=== PATIENT | female | born 1970 | race Caucasian/White ===

== ENCOUNTER 2017-05-21 13:50 | Emergency (ER) | payer MEDICAID, SELFPAY | END 2017-05-21 16:44 | disposition home or self-care (01) | PROVIDERS: Emergency Provider Emergency Medicine; Visit Provider Emergency Medicine | DX: R09.1 Pleurisy (principal); Z72.0 Tobacco use; D64.9 Anemia, unspecified; M79.7 Fibromyalgia; Z79.899 Other long term (current) drug therapy | CPT/HCPCS: 36415; 71020; 71275; 80053; 84484; 85025; 85378; 93005; 99283 ==

== ENCOUNTER → 2017-08-27 10:24 | Outpatient (CLI) | payer MEDICAID, SELFPAY ==
--- NOTE | 2017-08-27 11:21 | XR_ITS ---
XR knee LT 4V HISTORY: ITS.REASON: Left knee pain ORDERING PHYSICIAN: JUNIOR Tatum PATIENT AGE: 47 years COMPARISON: None FINDINGS: Mild tricompartmental osteoarthritic change. An extra bony density is present along the medial tibial spine region at 8 mm consistent with a loose body . No fracture or dislocation. No lytic or blastic change. There is increased density in the suprapatellar region suggesting multiple suprapatellar effusion. IMPRESSION: Mild tricompartmental osteoarthritis with possible loose body posteriorly and small knee joint effusion
[2017-08-27 11:28] VITALS: PULSE 78; PULSE 80
== END ==
PROVIDERS: Visit Provider Physician Assistant
DX: J30.9 Allergic rhinitis, unspecified (principal); M25.562 Pain in left knee
CPT/HCPCS: 73564; 87070; 87077; 87186; 87205; 94640

== ENCOUNTER → 2017-10-06 14:39 | Outpatient (POV) | payer MEDICAID, SELFPAY | PROVIDERS: Family Provider Physician Assistant; PCP Physician Assistant; Visit Provider Internal Medicine | DX: Z00.00 Encounter for general adult medical examination without abnormal findings (principal) ==

== ENCOUNTER → 2017-10-07 12:39 | Outpatient (CLI) | payer MEDICAID, SELFPAY ==
--- NOTE | 2017-10-07 12:40 | MR_ITS ---
MR knee LT wo con HISTORY: Left knee pain with finding and swelling with limited range of motion. Possible loose body, abnormal radiograph ITS.REASON: possible loose body or meniscus tear ORDERING PHYSICIAN: Narinder Olivas MD PATIENT AGE: 47 years COMPARISON: 08/27/2017 TECHNIQUE: Standard multiplanar multiecho sequences are performed without contrast. FINDINGS: The cruciate ligaments are intact. The collateral ligaments, patellar tendon, and quadriceps tendon are intact. No meniscal tear apparent. There is linear increased T2 signal involving the posterior horn of the lateral meniscus extending to the free edge of the meniscus posteriorly but not involving the articular surface and not extending to the edge on more than one image and does not meet strict MRI criteria for meniscal tear. There is a 10 x 6 mm area of isoechogenicity along the posterior aspect of the knee joint slightly medial consistent with an intra-articular loose body as was seen on the recent radiograph this is just posterior medial to the inferior aspect of the posterior cruciate ligament and is within the knee joint capsule. There are mild osteoarthritic changes of the lateral compartment with a subcortical defect involving the medial femoral condyle. This defect measures approximately 5 mm. A small amount of edema is present in the medial femoral condyle. There is slight increased T2 signal involving the posterior surface of the patella superiorly. The patellar cartilage is preserved. IMPRESSION: 1. 10 x 6 mm loose body along the posterior aspect of the knee joint slightly medial just posterior medial to the posterior cruciate ligament with an associated small knee joint effusion. 2. Small osteochondral defect of the lateral femoral condyle with mild osteoarthritis of the lateral compartment 3. No evidence of internal derangement
== END ==
PROVIDERS: Family Provider Physician Assistant; PCP Physician Assistant; Visit Provider Orthopaedic Surgery
DX: M23.42 Loose body in knee, left knee (principal); M17.12 Unilateral primary osteoarthritis, left knee
CPT/HCPCS: 73721

== ENCOUNTER → 2017-10-15 11:25 | Outpatient (CLI) | payer MEDICAID, SELFPAY ==
[2017-10-15 13:16] LABS: Alanine Aminotransferase 13 U/L (12-78); Alkaline Phosphatase 66 U/L (46-116); Aspartate Amino Transferase 11 U/L (15-37); Bilirubin,Direct 0.1 mg/dL (0.0-0.2); Bilirubin,Indirect 0.3 mg/dL (0.0-0.9); Bilirubin,Total 0.4 mg/dL (0.2-1.0); Chol/HDL Ratio 2.7 (1-3.5); Cholesterol 115 mg/dL (140-200); HDL Cholesterol 43 mg/dL (29-89); LDL Cholesterol 53 mg/dL (0-130); Total Protein,Serum 6.7 gm/dL (6.4-8.2); Triglycerides 93 mg/dL (30-200); VLDL Cholesterol 19 mg/dL (0-40)
== END ==
PROVIDERS: Family Provider Physician Assistant; PCP Physician Assistant; Visit Provider Internal Medicine Cardiovascular Disease
DX: I25.10 Atherosclerotic heart disease of native coronary artery without angina pectoris (principal); I10 Essential (primary) hypertension; E78.5 Hyperlipidemia, unspecified; Z82.49 Family history of ischemic heart disease and other diseases of the circulatory system; Z95.5 Presence of coronary angioplasty implant and graft
CPT/HCPCS: 36415; 80061; 80076

== ENCOUNTER 2017-10-21 10:04 | Outpatient (RCR) | payer MEDICAID, SELFPAY | END 2017-10-21 10:05 | disposition home or self-care (01) | LOC: PT 10:04 | PROVIDERS: Family Provider Physician Assistant; PCP Physician Assistant; Visit Provider Orthopaedic Surgery | DX: M17.12 Unilateral primary osteoarthritis, left knee (principal) | CPT/HCPCS: 97163 ==

== ENCOUNTER → 2017-12-04 11:12 | Outpatient (CLI) | payer MEDICAID, SELFPAY ==
[2017-12-04 12:13] VITALS: PULSE 69; PULSE 70
[2017-12-04 12:45] VITALS: BP 127/81; BP 142/80; PULSE 76; PULSE 98; RESP 14; RESP 20; O2SAT 96; O2SAT 99
== END ==
PROVIDERS: Family Provider Physician Assistant; PCP Physician Assistant; Visit Provider Internal Medicine
DX: J42 Unspecified chronic bronchitis (principal)
CPT/HCPCS: 94060; 94618; 94640; 94726; 94729

== ENCOUNTER → 2017-12-08 10:39 | Outpatient (POV) | payer MEDICAID, SELFPAY | PROVIDERS: Family Provider Physician Assistant; PCP Physician Assistant; Visit Provider Internal Medicine | DX: Z00.00 Encounter for general adult medical examination without abnormal findings (principal) ==

== ENCOUNTER → 2017-12-11 07:46 | Outpatient (CLI) | payer MEDICAID, SELFPAY ==
--- NOTE | 2017-12-11 07:47 | CA_ITS ---
PROCEDURE: 2-D M-mode and color Doppler study INDICATIONS FOR THE TEST: Chest pain + COPD+ Heart Murmur Tobacco Smoking Palpitations Fatigue+ Syncope Edema+ Hypertension+Diabetes Mellitus Rheumatic Fever SOB+COX+Obesity Hyperlipidemia+ Family History HD Additional History CAD, DIZZINESS, STENT PATIENT INFORMATION HEIGHT: 64 WEIGHT:172 GENDER: Female B/P:127/80 2-D/M-MODE INTERPRETATION: 2-D MEASUREMENTS OBSERVED VALUES IN CMS Right Ventricular Dimension (RVDd) 2.2 Interventricular Septum (Thickness)(IVsd) 0.9 Left Ventricular Internal Dimensions(LVIDd) 4.9 Left Ventricular Posterior Wall (Thickness)(LVPWd) 1.0 Aortic Root 3.4 Aortic Cusp Separation 2.5 Left Atrial Dimensions (LAD) 3.3 2D 1. Left atrium is normal size, left ventricle is normal size, there is no concentric left ventricular hypertrophy, visually estimated ejection fraction 55% with no obvious regional wall motion abnormality. 2. The right atrium and right ventricle are normal size and contractility. 3. The aortic, mitral and tricuspid valve are grossly normal. 4. The pulmonic valve is poorly visualized. 5. No significant pericardial effusion noted. DOPPLER INTERROGATION: Doppler interrogation of the aortic, mitral and tricuspid valvular presence of mild mitral and tricuspid regurgitation, tricuspid and jet velocity is insufficient for calculation of the right ventricular systolic pressure, diastolic parameters are within normal range. CONCLUSION: 1. Normal left ventricular size, preserved left ventricular systolic function, visually estimated ejection fraction 55% with no obvious regional wall motion abnormality, diastolic parameters are within normal range. 2. Mild mitral and tricuspid regurgitation 3. No significant pericardial effusion noted.
== END ==
PROVIDERS: Family Provider Physician Assistant; PCP Physician Assistant; Visit Provider Internal Medicine
DX: I25.10 Atherosclerotic heart disease of native coronary artery without angina pectoris (principal); R50.9 Fever, unspecified
CPT/HCPCS: 93306

== ENCOUNTER → 2020-03-02 09:01 | Outpatient (CLI) | payer MEDICAID, SELFPAY ==
--- NOTE | 2020-03-02 09:10 | XR_ITS ---
PROCEDURE: XR CHEST 2V CLINICAL HISTORY: h/o renal cell cancer COMPARISON: CR CXR CHEST(2 VIEWS-NOT PORTABLE) from 02/22/2017 CR CXR CHEST(2 VIEWS-NOT PORTABLE) from 05/07/2017 CR CXR CHEST(2 VIEWS-NOT PORTABLE) from 05/21/2017 CT CTAC CTA-CHEST from 05/21/2017 FINDINGS: Borderline emphysematous changes noted. The lung zuleta are clear of infiltrate. There are no suspicious pulmonary nodules. Cardiac size is normal and vascularity is normal and there is no pleural fluid. IMPRESSION: Borderline COPD otherwise negative chest Dictated by: Dr. Roland Koo MD 03/02/2020 09:43 Dr. Roland Koo MD in [place] 03/02/2020 09:43
--- NOTE | 2020-03-02 09:10 | US_ITS ---
PROCEDURE: US KIDNEY Referring Doctor: ItaliaBuster Patient Age:49Y CLINICAL INDICATION: . Left kidney removed in 2011 COMPARISON: US RUQ US RUQ-(ABD LTD)1ORGAN/QUAD/FU from 03/04/2016 FINDINGS: Follow-up right kidney the right kidney appears normal. It measures 12.9 cm length times 5.8 cm. Cortex is well maintained.. No mass lesions or echogenic foci. Good flow throughout the right kidney on color Doppler survey. No fluid is encountered at Combs's pouch or on on these views of the abdomen The left kidney is been removed. Left nephrectomy in 2011. The no findings in the left renal fossa by this ultrasound survey The spleen appears normal measuring 9.2 cm length. IMPRESSION: The remaining right kidney mildly hypertrophy but normal, with cortex well maintained. No right renal mass evident on ultrasound survey Left nephrectomy. Spleen unremarkable. Dictated by: Geovany Dumont MD 03/02/2020 13:27 Geovany Dumont MD in [place] 03/02/2020 13:27
[2020-03-02 09:27] LABS: Basophils # 0.1 K/mm3 (0-0.2); Basophils % 1.1 % (0.1-2.0); Eosinophils # 0.2 K/mm3 (0.0-0.4); Eosinophils % 2.4 % (0.1-12.0); Hematocrit 40.8 % (37.0-47.0); Hemoglobin 13.9 g/dL (12.2-16.2); Lymphocytes # 2.6 K/mm3 (0.7-4.5); Lymphocytes % 35.7 % (10-50); Mean Corpuscular HGB Conc 34.1 g/dL (31.8-35.4); Mean Corpuscular Hemoglobin 31.1 pg (27.0-31.2); Monocytes # 0.5 K/mm3 (0.1-1.0); Monocytes % 6.6 % (1.7-9.3); Neutrophils % 54.3 % (37.0-80.0); Platelet Count 378 K/mm3 (142-424); Red Blood Count 4.48 M/mm3 (4.20-5.40); Red Cell Distribution Width 13.5 % (11.5-17.5); White Blood Count 7.3 K/mm3 (4.8-10.8)
[2020-03-02 12:45] LABS: Chloride 104 mmol/L (98-107); Potassium 4.7 mmoL/L (3.5-5.1); Sodium 138 mmol/L (136-145)
[2020-03-02 12:48] LABS: Alanine Aminotransferase 20 U/L (12-78); Albumin Level 4.1 g/dl (3.5-5.0); Albumin/Globulin Ratio 1.7 (1.1-1.8); Alkaline Phosphatase 68 U/L (38-126); Anion Gap 13.7 mEq/L (5-15); Aspartate Amino Transferase 21 U/L (14-36); Bilirubin,Total 0.6 mg/dl (0.2-1.3); Blood Urea Nitrogen 10 mg/dl (7-17); Calcium 9.6 mg/dl (8.4-10.2); Carbon Dioxide 25 mmol/L (22.0-30.0); Estimated Glomerular Filt Rate 67 ml/min (>60); GFR (African American) 81 ML/MIN (>60); Globulin 2.4 g/dL (1.3-3.2); Glucose 103 mg/dl (74-100); Total Protein,Serum 6.5 g/dl (6.3-8.2)
[2020-03-02 12:55] LABS: NT Pro Brain Natriuretic Pep. 77.3 pg/mL (0-125)
== END ==
PROVIDERS: Internal Medicine Cardiovascular Disease; Visit Provider Urology
DX: Z85.528 Personal history of other malignant neoplasm of kidney (principal)
CPT/HCPCS: 36415; 71046; 76770; 80053; 83880; 85025

== ENCOUNTER → 2020-03-02 10:42 | Outpatient (CLI) | payer MEDICAID, SELFPAY | PROVIDERS: Visit Provider Internal Medicine Cardiovascular Disease | DX: R07.9 Chest pain, unspecified (principal); R42 Dizziness and giddiness; R06.00 Dyspnea, unspecified; E78.5 Hyperlipidemia, unspecified; I10 Essential (primary) hypertension; I25.118 Atherosclerotic heart disease of native coronary artery with other forms of angina pectoris; J44.9 Chronic obstructive pulmonary disease, unspecified; K21.9 Gastro-esophageal reflux disease without esophagitis; Z95.5 Presence of coronary angioplasty implant and graft | CPT/HCPCS: 83880 ==

== ENCOUNTER → 2020-03-02 11:04 | Outpatient (CLI) | payer MEDICAID, SELFPAY | PROVIDERS: PCP Student in an Organized Health Care Education/Training Program; Visit Provider Urology | DX: R42 Dizziness and giddiness (principal); R06.00 Dyspnea, unspecified | CPT/HCPCS: 93225 ==

== ENCOUNTER → 2020-03-09 07:21 | Outpatient (CLI) | payer MEDICAID, SELFPAY ==
--- NOTE | 2020-03-09 | CA_ITS ---
APPROVED REPORT Exam: Pharmacologic Technologist: Beth Resendez, Ht: 5 ft 4 in Wt: 203 lbs BSA: 1.97 m2 HR: 65 bpm BP: 134/75 mmHg Rhythm: SINUS RHYTHM WITH RBB Medical History Medical History: Hyperlipidemia Medications: Omeprazole,,,,, Asa,,,,, Trazadone,,,,, Gabapentin,,,,, Atorvastatin,,,,, Albuterol,,,,, MoTRIN,,,,, Plavix,,,,, LoraTADINE,,,,, Xopenex,,,,, Vit D2,,,,, FamotidNE,,,,, Cardiac Risk Factors: Hyperlipidemia, FHX of CAD Stress Test Details Test: LEXISCAN HR Resting HR: 97 bpm Max Heart Rate (APMHR): 171 bpm Max HR Achieved: 138 bpm Target HR (85% APMHR): 145 bpm % of APMHR: 80 Recovery HR: 109 bpm BP Resting BP: 134.0/75.0 mmHg Max BP: 190.0/78.0 mmHg Recovery BP: 186.0/90.0 mmHg ECG Resting ECG: NSR WITH RBBB Clinical Exercise duration: 04:00 min Highest Stage Achieved: Exercise capacity: 1.0 METs Stress ECG Conclusion LEXISCAN MYOVIEW PORTION COMPLETED. PATIENT C/O SOA DURING PEAK INFUSION. NO CHEST PAIN. SHORTNESS OF AIR AND NAUSEA AND VOMITING AT PEAK INFUSION. RESOLVED IN RECOVERY. OCCASIONAL PAC. LESS THAN 1.5MM ST DEPRESSION. IMAGES TO FOLLOW Test Summary REST . . . . . . . Sitting REST 07:56 . . 97 . 134/ 75 . . Stage 1 . . . . . . . Myoview Injected Stage 1 01:00 . . 106 . . . . Stage 2 01:00 . . 123 . 112/ 80 . . Stage 3 01:00 . . 122 . . . . Stage 4 01:00 . . 126 . . . Stop exercise at 04:00 RECOVERY 01:00 . . 119 . 190/ 78 . . RECOVERY 02:00 . . 79 . 190/ 78 . . RECOVERY 03:00 . . 104 . 186/ 90 . . RECOVERY 04:00 . . 89 . 186/ 90 . . RECOVERY 05:00 . . 91 . 186/ 90 . . RECOVERY 06:00 . . 68 . 186/ 90 . . RECOVERY 07:00 . . 80 . 158/ 92 . . RECOVERY 07:39 . . 73 . 132/ 81 . . Electronically signed by : Sterling Okeefe, 03/09/2020 11:58:17
--- NOTE | 2020-03-09 07:21 | NM_ITS ---
APPROVED REPORT Exam: Nuclear Stress Test Indication: chest pain..short of breath.. fatigue Patient Location: Outpatient Stress Tech: Tonya Mal MD Tech:BALBIR Quiñonez RT(R)(N) Ht: 5 ft 4 in Wt: 203 lbs Bra Size: 38 c HR: 65 bpm BP: 134/75 mmHg BSA: 1.97 m2 BMI: 34.8 History: chest pain..short of breath.. fatigue Procedure: Patient received a 0.4 mg of intravenous Lexiscan, resting heart rate 65 bpm, resting blood pressure 134/75 mmHg, with Lexiscan maximum heart rate achived was 109 bpm which is Less than 85 % of the maximum predicted heart rate and blood pressure was 186/90 mmHg. With Lexiscan, patient denied any complaint of chest pain. Electrocardiogram Resting electrocardiogram showed sinus rhythm, with Lexiscan there is less than 1.[address] segment depression noted from the baseline EKG. The EKG portion of the Lexiscan is nondiagnostic. Cardiac Stress and Resting SPECT Images: Cardiac Stress and Resting SPECT images were obtained using technetium 99m Myoview 32.9 mCi stress and 10.71 mCi at rest. Gated SPECT for analysis of segmental wall motion and calculation of the ejection fraction also done. Cardiac stress and resting SPECT images show uniform myocardial activity without segmental perfusion abnormality, computer derived ejection fraction is 65% with no regional wall motion abnormality, right ventricle is normal size and contractility. Conclusion: 1. The EKG portion of the Lexiscan Myoview is nondiagnostic for 2. No scintigraphic evidence of reversible ischemia seen, computer derived ejection fraction is 65% with no regional wall motion abnormality, right ventricle is normal size and contractility 3. Normal Lexiscan Myoview study. Electronically signed by : Sterling Okeefe, 03/16/2020 13:19:51
--- NOTE | 2020-03-09 07:41 | CA_ITS ---
APPROVED REPORT Registered Nurse Cardiac Telemetry: DONNELL Laterality: Bilateral Study Quality: Good Indications: dizziness Doppler Spectral Velocity Analysis dICA (R) 80.90/25.30 cm/s dICA (L) 119.70/37.70 cm/s Abdulaziz (R) 135.00/33.70 cm/s Abdulaziz (L) 106.40/36.80 cm/s pICA (R) 138.00/37.20 cm/s pICA (L) 106.40/36.80 cm/s dCCA (R) 117.50/32.70 cm/s dCCA (L) 130.70/44.10 cm/s pCCA (R) 136.70/26.80 cm/s pCCA (L) 88.50/19.40 cm/s Vert (R) 76.10/20.60 cm/s Vert (L) 58.90/13.50 cm/s ICA/CCA 1.20 ICA/CCA 0.90 Findings Duplex evaluation demonstrates stenosis of the right proximal internal carotid artery <20% with PSV <140 cm/sec, EDV <100 cm/sec, and IC/CC Ratio <4.0.The left carotid arterial system appeared to be normal without stenosis of the bulb or internal carotid artery. Antegrade flow seen bilateral vertebral arteries. Conclusion Duplex evaluation demonstrates stenosis of the right proximal internal carotid artery <20% with PSV <140 cm/sec, EDV <100 cm/sec, and IC/CC Ratio <4.0.The left carotid arterial system appeared to be normal without stenosis of the bulb or internal carotid artery. Antegrade flow seen bilateral vertebral arteries. Electronically signed by : Iban Rivas MD 03/09/2020 17:36:55
--- NOTE | 2020-03-09 09:42 | HMH.ITSHM ---
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 [] asa atorvastain clopidogrel famotidine gabapentin loratadine montelukast omeprazole
== END ==
PROVIDERS: PCP Student in an Organized Health Care Education/Training Program; Visit Provider Internal Medicine Cardiovascular Disease
DX: R07.9 Chest pain, unspecified (principal); R06.00 Dyspnea, unspecified; R42 Dizziness and giddiness; E78.5 Hyperlipidemia, unspecified; I10 Essential (primary) hypertension; I25.118 Atherosclerotic heart disease of native coronary artery with other forms of angina pectoris; J44.9 Chronic obstructive pulmonary disease, unspecified; K21.9 Gastro-esophageal reflux disease without esophagitis; Z87.891 Personal history of nicotine dependence; Z95.5 Presence of coronary angioplasty implant and graft
CPT/HCPCS: 78452; 93017; 93880; A9502; J2785

== ENCOUNTER → 2020-03-19 12:42 | Outpatient (CLI) | payer MEDICAID, SELFPAY ==
--- NOTE | 2020-03-19 12:43 | US_ITS ---
PROCEDURE: US BREAST LT COMPLETE CLINICAL INDICATION: Abnormal left mammogram COMPARISON: US BREAST LT from 06/04/2018 FINDINGS: There is a somewhat oval area of increased echogenicity with somewhat heterogenic and echogenic appearance upper inner quadrant at the 10 o'clock position measuring 2.9 x 3.2 cm. The surrounding breast parenchyma is unremarkable. There are couple normal appearing nodes seen in the axilla. IMPRESSION: Somewhat focal heterogenic and echogenic lesion as described corresponding to the area of architectural distortion on the mammogram and I believe biopsy is indicated as described on the mammogram report same date Dictated by: Dr. Roland Koo MD 03/19/2020 15:41 Dr. Roland Koo MD in [place] 03/19/2020 15:41
--- NOTE | 2020-03-19 12:43 | MM_ITS ---
PROCEDURE: MM DIG MAMM DX UNILAT LT CAD Digital Breast Tomosynthesis Included CLINICAL INDICATION: lump patient had previous left mammogram [place], [place] 08/04/2019 and apparently was scheduled for biopsy but that was canceled due to Covid and now returns for repeat left mammogram COMPARISON: MG DIAGNOSTIC BILATERAL from 08/04/2019 US US BREAST LT COMPLETE from 03/19/2020 TECHNIQUE: Standard CC and MLO images and 3D Tomosynthesis was obtained. R2 CAD reviewed. FINDINGS: Moderate scattered fibroglandular densities are seen in the breast. There is somewhat irregular opacities and or architectural distortion upper inner quadrant. It is similar in appearance to the previous study 08/04/2019 ultrasound performed same date showed a somewhat irregular area of increased echogenicity upper inner quadrant at approximately the 10 o'clock position measure 2.9 by 3.2 cm. The ultrasound findings combined with the area of architectural distortion are somewhat bothersome and I would recommend biopsy. IMPRESSION: Irregular area of architectural distortion upper inner quadrant left breast confirmed with ultrasound exam BI-RAD Category: 4 Suspicious Abnormality - Biopsy Considered FOLLOW-UP: BIO Biopsy Recommended (A letter has been sent to the patient regarding results of the study.) Dictated by: Dr. Roland Koo MD 03/19/2020 15:35 Dr. Roland Koo MD in [place] 03/19/2020 15:35
== END ==
PROVIDERS: PCP Student in an Organized Health Care Education/Training Program; Visit Provider Surgery
DX: N63.20 Unspecified lump in the left breast, unspecified quadrant (principal)
CPT/HCPCS: 76641; 77061; 77065; G0279

== ENCOUNTER → 2020-04-04 09:23 | Outpatient (CLI) | payer MEDICAID, SELFPAY ==
--- NOTE | 2020-04-04 09:24 | US_ITS ---
PROCEDURE: US MAMMOTOME BX LT CLINICAL INDICATION: lump Left breast nodule, abnormal mammogram and ultrasound COMPARISON: MG MM DIG MAMM DX UNILAT LT CAD from 03/19/2020 US US BREAST LT COMPLETE from 03/19/2020 MG MM CLIP PLACEMENT LT from 04/04/2020 FINDINGS: Technique: Following obtaining informed consent and time-out procedure under aseptic conditions and local anesthesia with 1 percent buffered lidocaine and deeper anesthesia with lidocaine mixed with epinephrine, skin dominik was performed and mammography needle inserted. Multiple mammotome biopsies were obtained. Biopsy clip was then placed through the existing mammotome needle. The patient tolerated the procedure well without evidence of immediate complications. Post biopsy mammogram: Biopsy changes are present in the upper inner aspect of the left breast with a clip at this region at the area of mammographic concern. Pathology: Fibrocystic changes with mild focal chronic mastitis. Negative for atypia or malignancy. IMPRESSION: Uneventful mammotome biopsy of the left breast showing benign findings. Recommend six-month sonographic and mammographic follow-up per routine protocol. Dictated by: Iabn Rivas MD 04/12/2020 10:01 Iban Rivas MD in [place] 04/12/2020 10:01
== END ==
PROVIDERS: Visit Provider Surgery
DX: N63.22 Unspecified lump in the left breast, upper inner quadrant
CPT/HCPCS: 19081; 19083; 77065; C2618

== ENCOUNTER → 2020-05-21 08:29 | Outpatient (POV) | payer MEDICAID, SELFPAY ==
[2020-05-21 08:35] VITALS: BP 125/88; PULSE 74; RESP 18; TEMP 36; O2SAT 98; BMI 30.7
--- NOTE | 2020-05-21 12:43 | HMH.PMCON ---
Assessment and Plan (1) Back pain Status: Chronic Qualifiers: Back pain location: low back pain Chronicity: chronic Back pain laterality: bilateral Sciatica presence: with sciatica Sciatica laterality: bilateral sciatica Qualified Code(s): M54.42 - Lumbago with sciatica, left side; M54.41 - Lumbago with sciatica, right side; G89.29 - Other chronic pain Category: Medical Code(s): M54.9 - Dorsalgia, unspecified - Assessment and plan all Dx Assessment and Plan for all problems:: I discussed with the patient that we would not continue her gabapentin and Tylenol 3 at this time. I will did have her drug screen. She states that she takes recently smoked marijuana to help with pain. I discussed with her that we will drug screen her today and then drug screen her after she has had her MRI and if her numbers have decreased we will consider writing her medications. Patient is agreeable. We will send her for a lumbar MRI reassess her symptoms after that. She has been instructed to call the office if she has any issues prior to next appointment. Dr. Paulino has reviewed this note and agrees with this plan of care. This note was dictated using voice recognition software and may contain errors or omissions HPI - Data of Consult Consult date: 05/21/20 Requesting Physician: Padmini Pepper APRN Primary Care Provider: Referral Provider, MD - Consult Narrative Reason for consult: Back pain, leg pain History of present illness: Ms. Guaman is a 49 year old female who presents today for consultation in regard to her back and leg pain. Patient's been seen by Dr. Brook beard in [place] for pain management. Patient received multiple medial branch blocks and an RFA with no long-term relief. She was being managed on gabapentin and Tylenol 3. Patient is interested in possible intrathecal therapy or neurostimulator. Patient has had no new MRIs. Patient has had pain for several years. With no long-term relief of her symptomology. I do believe getting a new MRI would be beneficial. Most of her pain is in her low back down her legs. CC: Padmini Pepper APRN [facility] History I have reviewed the patient's past medical history: Yes Medical History: Reports:: Anxiety, Asthma, Cancer (kidney), Chronic Obstructive Pulmonary Disease (COPD), Coronary Artery Disease, Depression, Gastroesophageal Reflux Disease(GERD), Hyperlipidemia, Hypertension, Osteoporosis, Palpitations Denies:: Diabetes Mellitus Type 1, Diabetes Mellitus Type 2, MRSA *Have you ever received a pneumonia vaccine?: Yes *Have you received a flu vaccine this season?: Yes Other Medical History: Reports: Arthritis, Fibromyalgia, Osteoporosis Laterality Cases: Left: Breast Biopsy, Bilateral: Tonsillectomy Other Surgeries: Yes: Appendectomy, Colonoscopy, Coronary Stent, Dilation and Curettage, EGD, Hysterectomy-Total, Other Amputation: No Fractures: No - *Social History Smoking Status: Never smoker Tobacco Type: cigarettes # Packs/Day (cigarettes): 1 #Yrs smoked (if former smoker): 20 Alcohol Intake: never Alcohol Intake Frequency:: holidays/special occasions only Substance Use Type: denies use *Occupational Status:: other Housing: house Household Members: significant other *Travel in the last 8 weeks: None - Psychiatric History Pschychiatric History:: Reports:: Anxiety, Depression Family Hx:: Unable to obtain Review of Systems - Review of Systems ROS General: no recent weight change, no fever, no sleep disturbances Respiratory: no cough, no shortness of air, no recurring pulmonary infections Cardiovascular/Peripheral Vascular: No chest pain, No palpitations, no edema, no shortness of breath. Gastrointestinal: no new onset incontinence, normal bowel movements reported Genitourinary: no new onset incontinence Musculoskeletal: Back pain, leg pain Psychiatric: normal mood/ affect, Neurological: [denies new onset weakness in extremities], [denies new
== END ==
PROVIDERS: Visit Provider Clinical Nurse Specialist Family Health
DX: M54.42 Lumbago with sciatica, left side (principal); M54.41 Lumbago with sciatica, right side; G89.29 Other chronic pain
CPT/HCPCS: 99202

== ENCOUNTER → 2020-05-30 07:52 | Outpatient (CLI) | payer MEDICAID, SELFPAY ==
--- NOTE | 2020-05-30 07:54 | MR_ITS ---
PROCEDURE: MR LUMBAR SPINE WO CON (MR myelogram image set with 3D volume rendering included) Referring Doctor: Padmini Pepper Patient Age:50Y CLINICAL INDICATION: BACK PAIN low back pain COMPARISON: No exams were available for comparison TECHNIQUE: Standard multiplanar multiecho sequences are performed without contrast. 3-D MIP and myelographic images are also rendered and reviewed(MR myelogram image set with 3D volume rendering included) FINDINGS: The vertebral bodies are intact in the disc spaces are well maintained through throughout the. No disc herniation or remarkable disc bulge but the neural foramen are widely patent at all levels L5/S1-disc space well maintained disc and unremarkable. Moderate bilateral facet hypertrophy which yields only very slight scant narrowing of the foramen L4/5. Mild disc bulge most evident towards left foramen but minor left foraminal encroachment. Moderate/generous facet hypertrophy. Facet arthropathy with fluid at both facet joints at this level. With this there is also small cyst overlying the left facet. This likely small synovial cyst extending from the inferior posterior margin of L4/5 facet on left, with a small cyst measuring roughly 8 mm as seen on axial image 27, and corresponding sagittal images. There is also a much smaller barely evident tiny synovial cyst extending from the anterior aspect left 4/5 facet is, slightly encroach upon posterior aspect of left recess and left foramen-, best seen on sagittal images. L3/4: This level unremarkable. Disc intact neural foramen widely patent. L2/3 disc intact neural foramen widely patent. Unremarkable. L1/2 disc intact. The T12/L1 disc intact. Conus ends appropriately at L1 1 level the it The 3D MR myelogram image set shows slight tapering of spinal canal at L4/5 due to the facet hypertrophy the the. The minimal fluid related to the facet joints and described small synovial cysts associated with the left facet joint evident on this image set as well IMPRESSION: The disc spaces are well maintained no disc herniation-Only very mild a the the disc bulge towards left foramen at L4/5 noted However most notable bilateral facet hypertrophy/arthropathy is at L4/5..-With this increased a fluid is seen at both facet joints with associated small synovial cysts: The most evident small synovial cyst seen posteriorly overlying the inferior left L4/5 facet joint. Also a smaller synovial cyst extending anteriorly from L4/5 facet, and mildly encroach upon the left recess and entry left foramen a a. The the there is mild narrowing the/a mild tapering of the of the spinal canal at L4/5 due to the facet hypertrophy-this is nicely seen on the 3D MR myelogram image set images a. The the the Dictated by: Geovany Dumont MD 05/31/2020 06:59 Geovany Dumont MD in [place] 05/31/2020 06:59
== END ==
PROVIDERS: Visit Provider Clinical Nurse Specialist Family Health
DX: M54.5 Low back pain (principal)
CPT/HCPCS: 72148; 76376

== ENCOUNTER → 2020-10-15 07:52 | Outpatient (CLI) | payer MEDICAID, SELFPAY ==
--- NOTE | 2020-10-15 07:58 | US_ITS ---
PROCEDURE: US BREAST LT COMPLETE CLINICAL INDICATION: screening Follow-up left breast biopsy COMPARISON: US US BREAST LT COMPLETE from 03/19/2020 MG MM DIG MAMM DX UNILAT LT CAD from 03/19/2020 US US MAMMOTOME BX LT from 04/04/2020 MG MM DIG SCREENING MAMM BI W/CAD from 10/15/2020 FINDINGS: Previously noted area of heterogeneous echogenicity at the 10 o'clock region of the left breast is somewhat less apparent previously measuring 3.4 x 1.2 cm now measuring 2.7 1 cm. This was the area which was biopsied. No other significant anomalies are evident. IMPRESSION: Previously noted area of heterogeneous echogenicity in the left breast appears somewhat less apparent status post biopsy. Otherwise negative Dictated by: Iban Rivas MD 10/19/2020 08:36 Iban Rivas MD in [place] 10/19/2020 08:36
--- NOTE | 2020-10-15 07:58 | MM_ITS ---
PROCEDURE INFORMATION: Exam: MG Screening 3D Mammography Exam date and time: 10/15/2020 7:58 AM Age: 50 years old Clinical indication: Encounter for screening mammogram for malignant neoplasm of breast; Additional info: Breast screening TECHNIQUE: Imaging protocol: Screening tomosynthesis and 2D mammography including computer-aided detection (CAD) when performed. COMPARISON: 1. MG MM CLIP PLACEMENT LT 04/04/2020 11:23 AM 2. MG MM DIG MAMM DX UNILAT LT CAD 03/19/2020 12:59 PM 3. MG DIAGNOSTIC BILATERAL 08/04/2019 10:08 AM FINDINGS: MAMMOGRAPHY: Breast composition: The breasts are heterogeneously dense, which may obscure small masses. Mass: No new suspicious masses. Architectural distortion: No suspicious distortion. Calcifications: No suspicious calcifications. Asymmetric density: None. Skin thickening: None. Axillary adenopathy: None. IMPRESSION: No mammographic evidence of malignancy. Annual screening is recommended unless otherwise clinically indicated. ASSESSMENT: BI-RADS Category 1: Negative
== END ==
PROVIDERS: PCP Student in an Organized Health Care Education/Training Program; Visit Provider Surgery
DX: Z12.31 Encounter for screening mammogram for malignant neoplasm of breast (principal)
CPT/HCPCS: 76641; 77063; 77067

== ENCOUNTER → 2021-04-04 14:06 | Outpatient (CLI) | payer MEDICAID, SELFPAY ==
[2021-04-04 14:23] LABS: Basophils # 0.1 K/mm3 (0-0.2); Eosinophils # 0.2 K/mm3 (0.0-0.4); Eosinophils % 1.9 % (0.1-12.0); Hematocrit 42.9 % (37.0-47.0); Hemoglobin 13.3 g/dL (12.2-16.2); Lymphocytes # 2.5 K/mm3 (0.7-4.5); Lymphocytes % 32.4 % (10-50); Mean Corpuscular Hemoglobin 29.8 pg (27.0-31.2); Mean Corpuscular Volume 96.1 fl (81-99); Monocytes # 0.4 K/mm3 (0.1-1.0); Monocytes % 4.5 % (1.7-9.3); Neutrophils # 4.7 K/mm3 (1.8-7.8); Neutrophils % 60.3 % (37.0-80.0); Platelet Count 518 K/mm3 (142-424); Red Blood Count 4.47 M/mm3 (4.20-5.40); Red Cell Distribution Width 13.8 % (11.5-17.5); White Blood Count 7.7 K/mm3 (4.8-10.8)
[2021-04-04 14:30] LABS: Alanine Aminotransferase 13 U/L (12-78); Albumin Level 3.9 g/dl (3.5-5.0); Albumin/Globulin Ratio 1.5 (1.1-1.8); Alkaline Phosphatase 74 U/L (38-126); Anion Gap 9.5 mEq/L (5-15); Aspartate Amino Transferase 22 U/L (14-36); Blood Urea Nitrogen 20 mg/dl (7-17); Calcium 9.3 mg/dl (8.4-10.2); Carbon Dioxide 29 mmol/L (22.0-30.0); Chloride 104 mmol/L (98-107); Chol/HDL Ratio 3.2 (1-3.5); Cholesterol 142 mg/dl (140-200); Estimated Glomerular Filt Rate 89 ml/min (>60); GFR (African American) 107 ML/MIN (>60); Globulin 2.6 g/dL (1.3-3.2); Glucose 121 mg/dl (74-100); HDL Cholesterol 45 mg/dl (40-60); Potassium 4.5 mmoL/L (3.5-5.1); Sodium 138 mmol/L (136-145); Total Protein,Serum 6.5 g/dl (6.3-8.2); Triglycerides 112 mg/dl (30-150); VLDL Cholesterol 22 mg/dL (0-40)
[2021-04-04 14:31] LABS: Bilirubin,Total 0.1 mg/dl (0.2-1.3)
[2021-04-04 14:41] LABS: Direct LDL Cholesterol 74.53 mg/dL (100-129)
[2021-04-04 14:44] LABS: Free T4 (Free Thyroxine) 0.78 ng/dl (0.78-2.19)
[2021-04-04 14:54] LABS: 25-OH Vitamin D, Total 42.9 ng/mL (30-100)
[2021-04-04 14:59] LABS: Thyroid Stimulating Hormone 1.07 uIU/mL (0.465-4.68)
[2021-04-04 16:43] LABS: Hemoglobin A1C 5.3 % (4.0-6.0)
== END ==
PROVIDERS: Emergency Medicine; Visit Provider Physician Assistant
DX: I10 Essential (primary) hypertension (principal); E03.9 Hypothyroidism, unspecified; R73.09 Other abnormal glucose; R53.83 Other fatigue; K59.00 Constipation, unspecified; E66.3 Overweight; Z68.30 Body mass index [BMI] 30.0-30.9, adult
CPT/HCPCS: 80053; 80061; 82306; 83036; 84439; 84443; 85025

== ENCOUNTER 2021-12-18 11:01 | Emergency (ER) | payer MEDICAID, SELFPAY ==
[2021-12-18 11:02] VITALS: BP 128/93; PULSE 95; RESP 16; TEMP 36.8; O2SAT 96
[2021-12-18 11:14] VITALS: BP 121/85; PULSE 90; RESP 16; TEMP 36.8; O2SAT 97; BMI 29.8
--- NOTE | 2021-12-18 11:14 | XR_ITS ---
FINAL REPORT CLINICAL HISTORY: twisted knee last nigh t FINDINGS: RIGHT KNEE Three views of the right knee reveal no evidence of fracture or dislocation. The bony alignment is normal. There is mild degenerative change. There is a moderate joint effusion. No localized soft tissue abnormality is identified. IMPRESSION: Moderate joint effusion with no acute bony abnormality. Reviewed, Interpreted and Dictated by Luis Crowe III, MD Transcribed by Zoe Garcia Authenticated and [facility]
--- NOTE | 2021-12-18 11:19 | PC.NURSE ---
pt to radiology
--- NOTE | 2021-12-18 11:22 | XR_ITS ---
FINAL REPORT CLINICAL HISTORY: cough still after 2 rounds of medicine COMPARISON: 03/02/2020 FINDINGS: Two views of the chest were obtained. The heart size and pulmonary vascularity are within normal limits. The mediastinum is normal. No acute pulmonary abnormality is identified. There is no pneumothorax. There is mild degenerative change with small osteophytes in the thoracic spine. IMPRESSION: No active cardiopulmonary disease. Reviewed, Interpreted and Dictated by Luis Crowe III, MD Transcribed by Zoe Garcia Authenticated and [facility]
--- NOTE | 2021-12-18 11:25 | PC.NURSE ---
radiology staff called and reports pt is c/o cough. new orders obtained and placed for a chest xr
--- NOTE | 2021-12-18 11:32 | HMH.EDUTC ---
[facility] [place] Disposition Clinical Impression: Strain of right knee Qualifiers: Encounter type: initial encounter Qualified Code(s): S86.911A - Strain of unspecified muscle(s) and tendon(s) at lower leg level, right leg, initial encounter Acute bronchitis Qualifiers: Bronchitis organism: unspecified organism Qualified Code(s): J20.9 - Acute bronchitis, unspecified Disposition: Home, Self-Care Condition on Discharge: Good Instructions: Knee Sprain, How to Use an Elastic Bandage-Knee Sprain, DI for Knee Sprain, DI for COVID-19 (Suspected or Confirmed ), Preventing the Spread of Coronavirus Discharge Instructions Additional Instructions: Drink plenty of fluids. Take tylenol or ibuprofen for pain or fever. Take the medications as directed. Follow up with your regular doctor. GO TO THE ER FOR ANY WORSENING SYMPTOMS Quarantine until you know the results of your covid-19 test. Notify your school or workplace of your results and follow their instructions regarding return to work/school. Rest the extremity, Wear the yvette wrap for compression, Elevate the extremity as tolerated while you are resting. Follow up with Dr. Olivas (orthopedics). I put in a referral but you need to call his office and schedule an appointment. Follow up with your regular doctor. GO TO THE ER FOR ANY WORSENING SYMPTOMS Prescriptions: Ondansetron [Zofran 4mg ODT] 4 mg PO Q8HP PRN #20 tab PRN Reason: Nausea Transmission Status: Received by [facility] #[id number] methylPREDNISolone [Medrol] 4 mg PO DIRECTED 6 Days #21 packet Transmission Status: Received by [employer] # Cefdinir [Omnicef 300mg Capsule] 300 mg PO BID #20 cap Transmission Status: Received by [employer] #[id number] Referrals: Keyana Lakhani PA [Primary Care Provider] - Time of Disposition: 12:19 Medical Decision Making - Medical Records Medical records reviewed: No: I reviewed the patient's medical records. - Jonathan Inquiry Pt receiving controlled substance: No Vital Signs: 12/18/21 11:02 12/18/21 11:14 12/18/21 12:21 Temperature 98.3 F 98.3 F 98.3 F Temperature Source Oral Oral Oral Pulse Rate 89 Pulse Rate [Left Radial] 95 H 90 Respiratory Rate 16 16 18 Blood Pressure 122/90 Blood Pressure [Left Arm] 128/93 H 121/85 Blood Pressure Mean [Left Arm] 104 97 Blood Pressure Source [Left Arm] Automatic Cuff Blood Pressure Position [Left Arm] Sitting 02 Sat by Pulse Oximetry 96 97 Oxygen Delivery Method Room Air Room Air - Lab Data Lab results reviewed: Yes: I reviewed the patient's lab results. [facility] [place] HPI - General Stated complaint: Twisted Right Knee Time Seen by Provider: 12/18/21 11:32 Mode of Arrival: Ambulatory Source of Information: Patient Limitations: No Limitations Description of Symptoms (Recalled from Triage Doc. by RN): pt c/o R knee pain that began yesterday. Pt reports felt a pop in knee yesterday. Reports pain and swelling since then. Pt denies numbness/tingling. HEENT Symptoms (Recalled from RN notes): No Resp Symptoms (Recalled from RN notes): No Skin Symptoms (Recalled from RN notes): No MS Symptoms (Recalled from RN notes): Yes Functional Status (Recalled from RN notes): na - History of Present Illness Provider Complaint: She states that since yesterday she has had right knee pain. She initially felt a pop in her knee, then her symptoms started. She denies any fall or other injury. She has also been having chest congestion and a cough for the past 2 weeks. - Related Data Home Medications Medication Instructions Recorded Confirmed levalbuterol HCl 1.25 mg/3 mL 1.25 mg INHALATION Q6H ml 11/18/21 11/18/21 solution for nebulization Previous Rx's Medication Instructions Recorded ergocalciferol (vitamin D2) 1,250 1,250 mcg PO QWEEK #14 cap 04/04/21 mcg (50,000 unit) capsule loratadine 10 mg tablet 10 mg PO DAILY #90 tab 04/04/21 losartan 25 mg tab
[2021-12-18 12:21] VITALS: BP 122/90; PULSE 89; RESP 18; TEMP 36.8; O2SAT 98
== END 2021-12-18 12:21 | disposition home or self-care (01) ==
PROVIDERS: Emergency Provider Nurse Practitioner Family; PCP Physician Assistant
DX: S86.911A Strain of unspecified muscle(s) and tendon(s) at lower leg level, right leg, initial encounter (principal); J20.9 Acute bronchitis, unspecified
CPT/HCPCS: 71046; 73562; 99212; G0463

== ENCOUNTER → 2022-01-03 12:09 | Outpatient (CLI) | payer MEDICAID, SELFPAY ==
--- NOTE | 2022-01-03 12:41 | MR_ITS ---
FINAL REPORT CLINICAL HISTORY: knee pain. PATIENT TWISTED KNEE AND FELL 3 WEEKS AGO. KNEE PAIN AND INSTABILITY. FINDINGS: Multiplanar MR imaging of the right knee was performed without contrast. There is a tear of the body and posterior horn of the medial meniscus. The lateral meniscus is intact. The anterior and posterior cruciate ligaments are intact. The medial collateral ligament and lateral ligamentous complex are intact. The patellar and quadriceps tendons are intact. There is no evidence of fracture. There is an osteochondral lesion in the lateral femoral condyle with adjacent bone marrow edema. There is severe lateral compartment chondromalacia. There is moderate patellar chondromalacia. A large joint effusion is seen. The musculature is intact. No soft tissue mass or cyst is identified. IMPRESSION: Tear of the body and posterior horn of the medial meniscus. Moderate and severe areas of chondromalacia. Osteochondral lesion in the lateral femoral condyle with adjacent bone marrow edema. Large joint effusion. Reviewed, Interpreted and Dictated by Luis Crowe III, MD Transcribed by tSuart Santana Authenticated and [facility]
== END ==
PROVIDERS: PCP Physician Assistant; Visit Provider Orthopaedic Surgery
DX: S86.911A Strain of unspecified muscle(s) and tendon(s) at lower leg level, right leg, initial encounter (principal)
CPT/HCPCS: 73721

== ENCOUNTER → 2022-01-20 07:20 | Outpatient (CLI) | payer MEDICAID, SELFPAY ==
--- NOTE | 2022-01-20 09:48 | HMH.ITSHM ---
Current Home Medications as stated by this patient Christine Guaman or technical support representative. []ATORVASTATIN ASA ALBUTEROL ACYCLOVIR ZOFRAN VARENICLINE TRAZODONE SENNOSIDES QUETIAPINE PREGABALIN OXYBUTYNIN OMEPRAZOLE MONTELUKAST LOSARTAN LORATADINE LEVALBUTEROL GUAFIENSIN FLUTICASONE FAMOTIDINE VITAMIN D2 DOXYCYCLINE DESLORATADINE CLOPIDOGREL
== END ==
PROVIDERS: PCP Physician Assistant; Visit Provider Internal Medicine Cardiovascular Disease
DX: R06.00 Dyspnea, unspecified (principal); R07.9 Chest pain, unspecified; R42 Dizziness and giddiness; I25.118 Atherosclerotic heart disease of native coronary artery with other forms of angina pectoris; I10 Essential (primary) hypertension; E78.5 Hyperlipidemia, unspecified; J44.9 Chronic obstructive pulmonary disease, unspecified; K21.9 Gastro-esophageal reflux disease without esophagitis; Z87.891 Personal history of nicotine dependence; Z95.5 Presence of coronary angioplasty implant and graft
CPT/HCPCS: 78452; 93017; 93306; A9502; J2785

== ENCOUNTER → 2022-02-08 08:17 | Outpatient (CLI) | payer MEDICAID, SELFPAY ==
[2022-02-08 08:45] LABS: Microscopic, Urine URINE MICROSCOPIC (MICROSCOPIC)
[2022-02-08 09:04] LABS: Basophils # 0.2 K/mm3 (0-0.2); Basophils % 1.6 % (0.1-2.0); Eosinophils # 0.3 K/mm3 (0.0-0.4); Eosinophils % 2.2 % (0.1-12.0); Hematocrit 41.5 % (37.0-47.0); Hemoglobin 13.2 g/dL (12.2-16.2); Lymphocytes # 3.4 K/mm3 (0.7-4.5); Lymphocytes % 29.2 % (10-50); Mean Corpuscular HGB Conc 31.8 g/dL (31.8-35.4); Mean Corpuscular Hemoglobin 30.6 pg (27.0-31.2); Mean Corpuscular Volume 96.1 fl (81-99); Mean Platelet Volume 7.8 fl (7.4-10.4); Monocytes # 0.8 K/mm3 (0.1-1.0); Monocytes % 7.3 % (1.7-9.3); Neutrophils # 6.9 K/mm3 (1.8-7.8); Neutrophils % 59.8 % (37.0-80.0); Platelet Count 400 K/mm3 (142-424); Red Blood Count 4.32 M/mm3 (4.20-5.40); Red Cell Distribution Width 13.2 % (11.5-17.5); White Blood Count 11.5 K/mm3 (4.8-10.8)
[2022-02-08 09:06] LABS: Appearance,Urine SL CLOUDY (Clear); Bilirubin,Urine Negative (Negative); Blood, Urine Negative (Negative); Color,Urine YELLOW (Yellow); Glucose,Urine (UA) Negative (Negative); Ketones,Urine Negative (Negative); Leukocyte Esterase,Urine Negative (Negative); Nitrate,Urine Negative (Negative); Protein,Urine Negative (Negative); Urobilinogen,Urine 0.2 EU/dl (0.2)
[2022-02-08 09:21] LABS: Amorphous Sediment,Urine Trace /lpf; Bacteria,Urine Trace /lpf
[2022-02-08 09:25] LABS: Alanine Aminotransferase 15 U/L (12-78); Albumin Level 3.8 g/dl (3.5-5.0); Albumin/Globulin Ratio 1.8 (1.1-1.8); Alkaline Phosphatase 81 U/L (38-126); Anion Gap 9.1 mEq/L (5-15); Aspartate Amino Transferase 19 U/L (14-36); Blood Urea Nitrogen 13 mg/dl (7-17); Calcium 9.2 mg/dl (8.4-10.2); Carbon Dioxide 30 mmol/L (22.0-30.0); Chloride 106 mmol/L (98-107); Estimated Glomerular Filt Rate 76 ml/min (>60); GFR (African American) 92 ML/MIN (>60); Globulin 2.1 g/dL (1.3-3.2); Glucose 107 mg/dl (74-100); Potassium 4.1 mmoL/L (3.5-5.1); Sodium 141 mmol/L (136-145); Total Protein,Serum 5.9 g/dl (6.3-8.2)
[2022-02-08 09:28] LABS: Bilirubin,Total 0.1 mg/dl (0.2-1.3)
[2022-02-08 09:50] LABS: Erythrocyte Sedimentation Rate 13 mm/hr (0-30)
== END ==
PROVIDERS: PCP Physician Assistant; Visit Provider Orthopaedic Surgery
DX: Z01.812 Encounter for preprocedural laboratory examination (principal); Z20.822 Contact with and (suspected) exposure to COVID-19; S83.241A Other tear of medial meniscus, current injury, right knee, initial encounter
CPT/HCPCS: 36415; 80053; 81001; 85025; 85651; C9803; U0003; U0005

== ENCOUNTER 2022-02-11 06:02 | Day surgery (SDC) | payer MEDICAID, SELFPAY ==
[2022-02-10 09:18] VITALS: BMI 29.2
[2022-02-11] VITALS (11 sets, daily range): BP systolic 124–163; BP diastolic 71–89; PULSE 62–98; RESP 12–18; TEMP 36.1–36.4; O2SAT 93–97
--- NOTE | 2022-02-11 06:49 | P.PN_ITS ---
PFSH PFS Medical History Allergic rhinitis Allergies Anxiety Appendicitis CAD (coronary artery disease) Cancer of kidney Chest pain Depression Deviated septum Dizziness Dyspnea Ear pain Encounter for pre-operative cardiovascular clearance Fibromyalgia Gastroesophageal reflux disease History of gastroesophageal reflux (GERD) History of primary transitional cell carcinoma of right kidney Hyperlipidemia Hypertensive disorder Osteoarthritis Persistent cough for 3 weeks or longer Seasonal affective disorder Surgical History History of appendectomy History of bilateral tubal ligation History of hysterectomy History of nasal septoplasty Hx of heart artery stent Stented coronary artery Family History Other Family history of myocardial infarction Social History Smoking Status: Current every day smoker tobacco type: cigarettes packs per day: 1 alcohol intake: current substance use type: denies use current occupational status: employed Travel in the last 8 weeks: None household members: spouse housing: house lives independently: No marital status: caffeine: No [facility] Anesthesia Checklist Patient Identification Patient Identification: Verbal (Name & ) Structural Data Admitted From: Home Planned Operative Procedure/s: r knee arthroscopy Consent for Planned Operative Procedure(s) Verified: Yes Additional verifications Anesthesia Reactions: No Hx Blood Transfusions: No Blood Transfusion Reaction: No Airway Assessment C-Spine Mobility Assessed: Yes TMJ Mobility Assessed: Yes Dentition: Edentulous Neurological Assessment Level of Consciousness: Awake, Alert and Appropriate Anesthesia Plan Anesthesia Risk discussed: Yes Anesthesia Plan: Verified ASA Class: III Anesthesia Type: General
--- NOTE | 2022-02-11 08:41 | EXP.ANES.I ---
[facility] Anesthesia Record Part I Anesthesia Record I Intake, IV Amount: 1,500 Estimated blood loss (mL): 0 Urine output (mL): 0 Blood Pressure: 163/86 SaO2: 94 Pulse Rate: 91 Respiratory Rate: 12 Temperature: 97.6 F Patient is:: Awake and Stable Stable to PACU at:: 08:40
--- NOTE | 2022-02-11 08:46 | P.OP_ITS ---
Date of procedure: 02/11/22 Pre-op Diagnosis:: Right knee medial meniscus tear Post-op Diagnosis:: Right knee medial meniscus tear Procedure performed:: Right knee arthroscopy with partial medial meniscectomy Surgeon:: Cesar Alexandre MD Correctional Therapy Director(s):: None DATABASE TECHNICIAN:: Byron Thomason Anesthesia: GETA and local Estimated blood loss (mL): 5 Clinical Note:: Christine is a pleasant 51-year-old female who has been struggling with right knee pain since she twisted her knee at home in November. MRI in December revealed large horizontal cleavage tear posterior horn medial meniscus and minimal degenerative changes. We discussed all the risks, benefits and alternatives to right knee arthroscopy for partial meniscectomy and she agreed to proceed. Surgical consent form was signed. Operative findings:: Right knee posterior horn medial meniscus horizontal cleavage tear. Mild chondromalacia of the patella and medial femoral condyle. Ligaments were intact. Operative note:: The patient was seen in the preop holding area. She was seen by anesthesia. Right knee was marked to confirm the correct operative site. She received Ancef 2 g IV prophylactic antibiotics within 1 hour incision time. She was brought to the OR and general anesthesia was induced out difficulty. Right lower extremity prepped and draped in usual sterile fashion. Timeout was performed for a right knee arthroscopy on patient Christine Guaman. Made an anterolateral viewing portal with 11 blade scalpel. Arthroscope was introduced into the knee joint. I then made an anteromedial portal after localizing this with a spinal needle. Arthroscopy commenced. She was seen to have a large horizontal cleavage tear posterior horn medial meniscus. This was treated with a partial medial meniscectomy. I used a 4.0 mm resector shaver and a straight biter to resect the inferior leaflet of the horizontal cleavage tear. We resected the inner third to half of the posterior horn of the medial meniscus back to smooth stable border with a smooth transition to intact body of the medial meniscus. Chondroplasty was performed of some mild chondromalacia of the medial femoral condyle. There is no full-thickness cartilage loss. Cruciate ligaments were seen to be intact. Evaluation of the lateral compartment revealed intact lateral meniscus and minimal chondromalacia lateral compartment. Patella had some mild chondromalacia of the central aspect that was debrided with a shaver back to smooth stable border. At this time arthroscopy instruments were removed from the and joint arthroscopy fluid suctioned and drained from the joint. Portals were closed with 4 Monocryl subcuticular stitches. I injected 20 cc of half percent Naropin from the superolateral approach for local anesthetic. Sterile dressing was applied with Steri-Strips, 4 x 4's, ABD, soft roll and Darren bandage. Anesthesia was reversed out difficulty. All sponge and needle counts were x2. She was transferred to recovery in stable condition. Tourniquet time (min): 0 Condition: stable Disposition: PACU Specimens:: None Complications:: None
--- NOTE | 2022-02-11 10:18 | SUR.PHASEI ---
LATE ENTRY 0912 called and gave detailed report to Sharon Castano RN [id number] transported via stretcher to post op. vital signs stable. rates pain at a level 4. left in stable condition with Sharon Castano RN at bedside.
--- NOTE | 2022-02-12 07:31 | P.PNANES_ITS ---
[facility] Anesthesia Record Part II Anesthesia Record Part II Discharge Time: 09:14 Destination: Surgical Day Care (OP Surgery) PACU nurse assessment reviewed?: Yes Patient Condition:: Good Anesthesia Complications:: None Swallowing reflex intact?: Yes Cyanosis?: No Blood Pressure: 140/77 Pulse Rate: 70 Temperature: 97.5 F Mental Status: Alert & Oriented Pain level:: 0 Nausea and/or vomitting:: None Intake, IV Amount: 0
[2022-02-12 07:32] VITALS: BP 140/77; PULSE 70; TEMP 36.4
== END 2022-02-11 10:19 | disposition home or self-care (01) ==
PROVIDERS: PCP Physician Assistant; Visit Provider Orthopaedic Surgery
PROC: (CPT 29870; principal; 2022-02-11 07:30)
DX: S83.241A Other tear of medial meniscus, current injury, right knee, initial encounter (principal); X50.1XXA Overexertion from prolonged static or awkward postures, initial encounter; I25.10 Atherosclerotic heart disease of native coronary artery without angina pectoris; Z95.5 Presence of coronary angioplasty implant and graft; Z79.899 Other long term (current) drug therapy; I10 Essential (primary) hypertension; E78.5 Hyperlipidemia, unspecified; F17.210 Nicotine dependence, cigarettes, uncomplicated; M22.41 Chondromalacia patellae, right knee
CPT/HCPCS: 29881; 29879; 96374; J2405

== ENCOUNTER → 2022-05-03 11:47 | Outpatient (CLI) | payer MEDICAID, SELFPAY | PROVIDERS: PCP Physician Assistant; Visit Provider Student in an Organized Health Care Education/Training Program | DX: R05.3 Chronic cough (principal) ==

== ENCOUNTER → 2022-05-06 10:56 | Outpatient (CLI) | payer MEDICAID, SELFPAY ==
--- NOTE | 2022-05-06 11:02 | XR_ITS ---
FINAL REPORT CLINICAL HISTORY: fall COMPARISON: 12/18/2021 FINDINGS: RIGHT KNEE 3 views of the right knee were obtained. There is no acute fracture or dislocation. Visualized joint spaces are normally aligned. There are mild degenerative changes. Soft tissues are unremarkable. IMPRESSION: No acute bony abnormality. Reviewed, Interpreted and Dictated by Luis Crowe III, MD Transcribed by Zoe Garcia Authenticated and [facility]
--- NOTE | 2022-05-06 11:02 | XR_ITS ---
FINAL REPORT CLINICAL HISTORY: chronic cough COMPARISON: 12/18/2021 FINDINGS: Two views of the chest were obtained. The heart size and pulmonary vascularity are within normal limits. The mediastinum is normal. There is mild bronchial wall thickening consistent with bronchitis. There is no pneumothorax. The bony thorax is intact. IMPRESSION: Findings consistent with bronchitis. Reviewed, Interpreted and Dictated by Luis Crowe III, MD Transcribed by Zoe Garcia Authenticated and [facility]
--- NOTE | 2022-05-06 11:02 | XR_ITS ---
FINAL REPORT CLINICAL HISTORY: left knee pain COMPARISON: 12/11/2017 FINDINGS: LEFT KNEE 3 views of the left knee were obtained. There is no acute fracture or dislocation. Visualized joint spaces are normally aligned. There are mild degenerative changes. There is a probable loose body posteriorly measuring about 9 mm. Soft tissues are otherwise unremarkable. IMPRESSION: No acute bony abnormality. 9 mm probable loose body posteriorly. Reviewed, Interpreted and Dictated by Luis Crowe III, MD Transcribed by Zoe Garcia Authenticated and [facility]
== END ==
PROVIDERS: PCP Student in an Organized Health Care Education/Training Program; Visit Provider Orthopaedic Surgery
DX: R05.3 Chronic cough (principal); M25.561 Pain in right knee; M25.562 Pain in left knee
CPT/HCPCS: 71046; 73562

== ENCOUNTER 2022-07-09 11:38 | Emergency (ER) | payer MEDICAID, SELFPAY ==
[2022-07-09 11:50] VITALS: BP 133/79; PULSE 66; RESP 20; TEMP 36.5; O2SAT 97; BMI 29.2
--- NOTE | 2022-07-09 11:53 | EXP.UTC ---
Discharge Plan Disposition Patient Disposition: Home, Self-Care Condition: Good Prescriptions Prescriptions: New cefdinir 300 mg capsule 300 mg PO BID Qty: 20 0RF mupirocin 2 % ointment 1 applic topical TID Qty: 22 0RF Rx Instructions: Apply to area on back as directed benzonatate 100 mg capsule 100 mg PO TID PRN (Reason: cough) Qty: 15 0RF No Action levalbuterol HCl 1.25 mg/3 mL solution for nebulization 1.25 mg INHALATION Q6H albuterol sulfate 90 mcg/actuation HFA aerosol inhaler 2 puff INHALATION Q6H PRN (Reason: shortness of breath or wheezing) Qty: 8.5 12RF Trelegy Ellipta 200-62.5-25 mcg blister with device 1 inh inhalation DAILY Qty: 28 5RF guaifenesin [Mucus Relief ER] 600 mg tablet extended release 12hr 600 mg PO BID Qty: 60 2RF oxycodone 5 mg tablet 5 mg PO Q4H PRN (Reason: pain) pregabalin [Lyrica] 100 mg capsule 100 mg PO BID Qty: 60 5RF oxybutynin chloride 5 mg tablet 5 mg PO BID Qty: 180 3RF losartan 25 mg tablet 25 mg PO DAILY Qty: 90 3RF ergocalciferol (vitamin D2) [Vitamin D2] 1,250 mcg (50,000 unit) capsule See Rx Instructions .ROUTE .COMPLEX Qty: 4 10RF Dose Instruction: TAKE 1 CAPSULE BY MOUTH EVERY WEEK {Q1W1} Rx Instructions: TAKE 1 CAPSULE BY MOUTH EVERY WEEK {Q1W1} varenicline 1 mg tablet See Rx Instructions .ROUTE .COMPLEX Qty: 56 10RF Dose Instruction: TAKE 1 TABLET BY MOUTH TWICE DAILY Rx Instructions: TAKE 1 TABLET BY MOUTH TWICE DAILY atorvastatin 40 mg tablet 40 mg PO DAILY quetiapine [Seroquel] 300 mg tablet 300 mg PO HS citalopram 40 mg tablet 40 mg PO DAILY famotidine 40 mg tablet 40 mg PO DAILY clopidogrel 75 mg tablet 75 mg PO DAILY omeprazole 40 mg capsule,delayed release(DR/EC) 40 mg PO DAILY aspirin 81 mg tablet,delayed release (DR/EC) 81 mg PO DAILY acyclovir 800 mg tablet 800 mg PO BID trazodone 150 mg tablet 150 mg PO QHS montelukast 10 mg tablet 10 mg PO DAILY fluticasone propionate 50 mcg/actuation spray,suspension 1 spray INTRANASAL DAILY senna 8.6 mg capsule 8.6 mg PO DAILY Referrals Follow up/Referrals: Keyana Lakhani PA [Primary Care Provider] - See instructions Activity Restrictions/Add. Instructions Additional Instructions/Restrictions: Use topical medication for area on left lower back apply as directed Start oral antibiotics Follow up with your Family Doctor if no improvement or any worsening of symptoms Return if needed Clinical Impressions Clinical Impression: Skin problem Instructions Patient Instructions: Mupirocin, Cefdinir, DI for Chronic Bronchitis Discharge ED Provider: Sally Nicole [facility] [place] HPI General Stated complaint: Bliser on back knots on chest Source of Information: Patient Limitations: No Limitations Time Seen by Provider: 07/09/22 11:55 Description of Symptoms (Recalled from Triage Doc. by RN): Patient reports knots on her right shoulder, a scab on the lower left side of her back. HEENT Symptoms (Recalled from RN notes): No Resp Symptoms (Recalled from RN notes): No Skin Symptoms (Recalled from RN notes): Yes MS Symptoms (Recalled from RN notes): No Functional Status (Recalled from RN notes): wnl History of Present Illness Provider Complaint: Patient states that she noticed small knot like areas under her skin around old scar States that she noticed them about a month ago but not got any larger or smaller, States that also she has a sore like lesion on her left lower back that started out like a pimple and she popped it now has large sore like lesion on it States also she has chronic bronchitis and was wanting to see about getting a Zpack or something for it Related Data Home Medications Medication Instructions Recorded Confirmed levalbuterol HCl 1.25 mg/3 mL 1.25 mg inhalation Q6H COPD 11/18/21 05/16/22 solution for nebulizat
[2022-07-09 12:26] VITALS: BP 133/79; PULSE 66; RESP 20; TEMP 36.5; O2SAT 97
== END 2022-07-09 12:29 | disposition home or self-care (01) ==
PROVIDERS: Emergency Provider Nurse Practitioner; PCP Physician Assistant
DX: L98.9 Disorder of the skin and subcutaneous tissue, unspecified (principal)
CPT/HCPCS: 99212; 99213; G0463

== ENCOUNTER → 2022-07-30 15:02 | Outpatient (CLI) | payer MEDICAID, SELFPAY | PROVIDERS: PCP Physician Assistant; Visit Provider Internal Medicine Pulmonary Disease | DX: R06.09 Other forms of dyspnea (principal) | CPT/HCPCS: 87070; 87205 ==

== ENCOUNTER → 2022-08-06 10:51 | Outpatient (CLI) | payer MEDICAID, SELFPAY ==
--- NOTE | 2022-08-06 10:52 | MM_ITS ---
PROCEDURE INFORMATION: Exam: MG Bilateral Screening 3D Mammography Exam date and time: 08/06/2022 10:46 AM Age: 52 years old Clinical indication: Screening examination TECHNIQUE: Imaging protocol: Bilateral Screening tomosynthesis and 2D mammography including computer-aided detection (CAD) when performed. COMPARISON: 1. MG MM DIG SCREENING MAMM BI W/CAD 10/15/2020 8:03 AM 2. MG MM CLIP PLACEMENT LT 04/04/2020 11:23 AM FINDINGS: MAMMOGRAPHY: Breast composition: There are scattered areas of fibroglandular density. Mass: None. Architectural distortion: None. Calcifications: No suspicious calcifications. Asymmetric density: None. Skin thickening: None. Axillary adenopathy: None. IMPRESSION: No mammographic evidence of malignancy. Annual screening is recommended unless otherwise clinically indicated. ASSESSMENT: BI-RADS Category 1: Negative
== END ==
PROVIDERS: PCP Physician Assistant; Visit Provider Physician Assistant
DX: Z12.31 Encounter for screening mammogram for malignant neoplasm of breast (principal)
CPT/HCPCS: 77063; 77067

== ENCOUNTER → 2022-08-07 10:54 | Outpatient (CLI) | payer MEDICAID, SELFPAY ==
--- NOTE | 2022-08-07 10:54 | MR_ITS ---
FINAL REPORT CLINICAL HISTORY: knee pain. grinding and popping in knee for years FINDINGS: Multiplanar MR imaging of the left knee was performed without contrast. The medial and lateral menisci are intact without evidence of meniscal tear. The anterior and posterior cruciate ligaments are intact. The medial collateral ligament and lateral ligamentous complex are intact. There is distal patellar tendinitis. The quadriceps tendon is intact. There is no evidence of fracture. There are mild and moderate degenerative changes. There is moderate to severe lateral compartment chondromalacia. There are small osteochondral lesions of the lateral femoral condyle and lateral tibial plateau. There is severe patellar chondromalacia. There are posterior loose bodies measuring up to 10 mm. A moderate joint effusion is seen. The musculature is intact. No soft tissue mass or cyst is identified. IMPRESSION: Distal patellar tendinitis. Mild and moderate degenerative changes with moderate to severe lateral compartment chondromalacia and severe patellar chondromalacia. Small osteochondral lesions of the lateral femoral condyle and lateral tibial plateau. Posterior loose bodies measuring up to 10 mm. Moderate joint effusion is seen. Reviewed, Interpreted and Dictated by Luis Crowe III, MD Transcribed by Zoe Garcia Authenticated and [facility]
== END ==
PROVIDERS: PCP Physician Assistant; Visit Provider Orthopaedic Surgery
DX: M17.0 Bilateral primary osteoarthritis of knee (principal)
CPT/HCPCS: 73721

== ENCOUNTER → 2022-09-22 07:30 | Outpatient (CLI) | payer MEDICAID, SELFPAY ==
--- NOTE | 2022-09-22 07:31 | CT_ITS ---
FINAL REPORT CLINICAL HISTORY: lung cancer screening smoker. 1/2 ppd x 25 years. cad, personal hx of kidney cancer COMPARISON: May 2017 FINDINGS: Low-Dose Chest CT CTDI vol (mGy): 2.90 DLP (mGy-cm): 108.12 Axial images were obtained from the lung apex to the mid abdomen by computed tomography. Low-dose protocol was utilized. FINDINGS: CHEST: There is no axillary adenopathy. There are multiple small mediastinal lymph nodes. The heart is proper size. There is no pericardial or pleural effusion. Limited images of the upper abdomen demonstrate postoperative change in the left upper quadrant. Lung window images demonstrate mild changes of emphysema with mild scarring. There is a 5 mm nodule in the superior left lower lobe near the major fissure the previously measured 3 mm. There are several other less than 5 mm pulmonary nodules. There is a subacute to chronic left 11th posterior rib fracture. IMPRESSION: Lung RADS category 4A. Recommend 3 month follow-up low-dose chest CT. Reviewed, Interpreted and Dictated by Luis Crowe III, MD Transcribed by Stuart Santana Authenticated and [facility]
--- NOTE | 2022-09-22 08:48 | PC.NURSE ---
PFT and 6 Minute Walk Test completed without incident. Albuterol 0.083% given via HHN, per protocol, Pt tolerated tx well.
== END ==
PROVIDERS: PCP Physician Assistant; Visit Provider Internal Medicine Pulmonary Disease
DX: Z87.891 Personal history of nicotine dependence (principal); Z12.2 Encounter for screening for malignant neoplasm of respiratory organs; R06.09 Other forms of dyspnea
CPT/HCPCS: 71271; 94060; 94618; 94726; 94729

== ENCOUNTER 2022-09-23 15:51 | Emergency (ER) | payer MEDICAID, SELFPAY ==
[2022-09-23 16:20] VITALS: BP 118/88; PULSE 95; RESP 16; TEMP 37.6; O2SAT 96; BMI 30.5
--- NOTE | 2022-09-23 18:39 | EXP.UTC ---
Discharge Plan Disposition Patient Disposition: Home, Self-Care Condition: Good Prescriptions Prescriptions: New amoxicillin-pot clavulanate 875-125 mg Tablet 1 tab PO Q12H 7 Days Qty: 14 0RF No Action levalbuterol HCl 1.25 mg/3 mL solution for nebulization 1.25 mg INHALATION Q6H ipratropium-albuterol 0.5 mg-3 mg(2.5 mg base)/3 mL solution for nebulization 3 ml inhalation Q12HP 90 Days Qty: 270 3RF Rx Instructions: To be used prior to flutter valve on a scheduled basis twice daily albuterol sulfate 90 mcg/actuation HFA aerosol inhaler 2 puff INHALATION Q6H PRN (Reason: shortness of breath or wheezing) Qty: 8.5 12RF fluticasone propionate [Flonase Allergy Relief] 50 mcg/actuation spray,suspension 2 spray intranasal DAILY 90 Days Qty: 16 2RF Rx Instructions: administer into each nostril Anoro Ellipta 62.5-25 mcg/actuation blister with device 1 inh inhalation DAILY 90 Days Qty: 180 3RF azelastine 205.5 mcg (0.15 %) spray,non-aerosol 2 spray intranasal HS 90 Days Qty: 30 3RF Rx Instructions: administer into each nostril Claritin-D 12 Hour 5-120 mg tablet extended release 12 hr 1 tab PO DAILY PRN (Reason: allergy symptoms) Qty: 30 0RF guaifenesin [Mucus Relief ER] 600 mg tablet extended release 12hr 600 mg PO BID Qty: 60 2RF oxycodone 5 mg tablet 5 mg PO Q4H PRN (Reason: pain) pregabalin [Lyrica] 100 mg capsule 100 mg PO BID Qty: 60 5RF oxybutynin chloride 5 mg tablet 5 mg PO BID Qty: 180 3RF losartan 25 mg tablet 25 mg PO DAILY Qty: 90 3RF ergocalciferol (vitamin D2) [Vitamin D2] 1,250 mcg (50,000 unit) capsule See Rx Instructions .ROUTE .COMPLEX Qty: 4 10RF Dose Instruction: TAKE 1 CAPSULE BY MOUTH EVERY WEEK {Q1W1} Rx Instructions: TAKE 1 CAPSULE BY MOUTH EVERY WEEK {Q1W1} varenicline 1 mg tablet See Rx Instructions .ROUTE .COMPLEX Qty: 56 10RF Dose Instruction: TAKE 1 TABLET BY MOUTH TWICE DAILY Rx Instructions: TAKE 1 TABLET BY MOUTH TWICE DAILY cefdinir 300 mg capsule 300 mg PO BID Qty: 20 0RF mupirocin 2 % ointment 1 applic topical TID Qty: 22 0RF Rx Instructions: Apply to area on back as directed benzonatate 100 mg capsule 100 mg PO TID PRN (Reason: cough) Qty: 15 0RF atorvastatin 40 mg tablet 40 mg PO DAILY quetiapine [Seroquel] 300 mg tablet 300 mg PO HS citalopram 40 mg tablet 40 mg PO DAILY famotidine 40 mg tablet 40 mg PO DAILY clopidogrel 75 mg tablet 75 mg PO DAILY omeprazole 40 mg capsule,delayed release(DR/EC) 40 mg PO DAILY aspirin 81 mg tablet,delayed release (DR/EC) 81 mg PO DAILY acyclovir 800 mg tablet 800 mg PO BID trazodone 150 mg tablet 150 mg PO QHS montelukast 10 mg tablet 10 mg PO DAILY senna 8.6 mg capsule 8.6 mg PO DAILY Referrals Follow up/Referrals: Keyana Lakhani PA [Primary Care Provider] - See instructions Activity Restrictions/Add. Instructions Additional Instructions/Restrictions: Suture instructions: ?You have required stitches today. Please read the following instructions so you know how to care for them: ?1. Keep wound area dry for the first 24 hours. 2?? May clean gently with mild soap and water, after 48 hours to prevent crusting over suture knots. 3. You may shower if your provider gives permission but do not take a bath until the skin is healed.. 4. Never leave a wet dressing or Band-Aid on your stitches as this allows bacteria to reach the area and may cause infection. Band-aids can cause the wound to sweat and not recommended to wear for long periods of time Watch for signs of infection: ? Increasing redness, tenderness or warmth around the suture site ? Unusual swelling around the site ? Appearance of pus around each suture or any red streaks ? Fever If you develop any of the above signs or symptoms of infection, Follow up with Family P
[2022-09-23 19:03] VITALS: BP 0/0; PULSE 0; RESP 0; TEMP -17.7; TEMP 0
== END 2022-09-23 19:05 | disposition home or self-care (01) ==
PROVIDERS: Emergency Provider Nurse Practitioner; PCP Physician Assistant
DX: S61.250A Open bite of right index finger without damage to nail, initial encounter (principal); J44.9 Chronic obstructive pulmonary disease, unspecified; F17.210 Nicotine dependence, cigarettes, uncomplicated; E78.5 Hyperlipidemia, unspecified; I10 Essential (primary) hypertension; W54.0XXA Bitten by dog, initial encounter
CPT/HCPCS: 12002; 90715; 96372; 99213; 99214; G0463

== ENCOUNTER → 2022-11-27 10:50 | Outpatient (CLI) | payer MEDICAID, SELFPAY ==
--- NOTE | 2022-11-27 10:51 | CT_ITS ---
FINAL REPORT TECHNIQUE: Thin section axial CT images of the facial bones and sinuses were obtained without contrast. Coronal reformatted images were also obtained.This study was performed with techniques to keep radiation doses as low as reasonably achievable, (ALARA). Individualized dose reduction techniques using automated exposure control or adjustment of mA and/or kV according to the patient''''s size were employed. CLINICAL HISTORY: sinus congestion FINDINGS: There is mild mucosal thickening in the maxillary sinuses. No fluid levels are identified. The ostiomeatal units have an unremarkable appearance. The nasal septum is deviated to the left with left-sided septal spurring. No fracture or acute bony abnormality is identified. IMPRESSION: Mild maxillary mucosal thickening. Reviewed, Interpreted and Dictated by Luis Crowe III, MD Transcribed by Carley Salinas Authenticated and [facility]
== END ==
PROVIDERS: PCP Physician Assistant; Visit Provider Nurse Practitioner
DX: J30.89 Other allergic rhinitis (principal); R09.81 Nasal congestion; Z72.0 Tobacco use
CPT/HCPCS: 70486

== ENCOUNTER → 2022-12-09 10:06 | Outpatient (CLI) | payer MEDICAID, SELFPAY ==
[2022-12-13 19:08] LABS: D001-IgE D pteronyssinus <0.10 kU/L (Class 0); D002-IgE D farinae <0.10 kU/L (Class 0); E001-IgE Cat Dander <0.10 kU/L (Class 0); E005-IgE Dog Dander <0.10 kU/L (Class 0); E072-IgE Mouse Urine <0.10 kU/L (Class 0); G002-IgE Bermuda Grass <0.10 kU/L (Class 0); G006-IgE Timothy Grass <0.10 kU/L (Class 0); I006-IgE Cockroach, German 0.11 kU/L (Class 0/I); Immunoglobulin E, Total 234 IU/mL (6-495); M001-IgE Penicillium chrysogen <0.10 kU/L (Class 0); M002-IgE Cladosporium herbarum <0.10 kU/L (Class 0); M003-IgE Aspergillus fumigatus <0.10 kU/L (Class 0); M006-IgE Alternaria alternata <0.10 kU/L (Class 0); T001-IgE Maple/Box Elder <0.10 kU/L (Class 0); T003-IgE Common Silver Birch <0.10 kU/L (Class 0); T006-IgE Cedar, Mountain <0.10 kU/L (Class 0); T007-IgE Oak, White <0.10 kU/L (Class 0); T008-IgE Elm, American <0.10 kU/L (Class 0); T010-IgE Walnut <0.10 kU/L (Class 0); T011-IgE Maple Leaf Sycamore <0.10 kU/L (Class 0); T014-IgE Cottonwood <0.10 kU/L (Class 0); T015-IgE Ash, White <0.10 kU/L (Class 0); T022-IgE Pecan, Hickory <0.10 kU/L (Class 0); T070-IgE White Mulberry <0.10 kU/L (Class 0); W001-IgE Ragweed, Short <0.10 kU/L (Class 0); W011-IgE Thistle, Russian <0.10 kU/L (Class 0); W014-IgE Pigweed, Common <0.10 kU/L (Class 0); W018-IgE Sheep Sorrel <0.10 kU/L (Class 0)
== END ==
LOC: LAB 10:06
PROVIDERS: PCP Physician Assistant; Visit Provider Nurse Practitioner
DX: R05.3 Chronic cough (principal); J30.9 Allergic rhinitis, unspecified
CPT/HCPCS: 36415; 82785; 86003

== ENCOUNTER → 2023-01-01 14:26 | Outpatient (CLI) | payer MEDICAID, SELFPAY ==
--- NOTE | 2023-01-01 14:26 | MR_ITS ---
FINAL REPORT CLINICAL HISTORY: Rt knee pain FINDINGS: Multiplanar MR imaging of the right knee was performed without contrast. There is medial and lateral meniscal degeneration. A tear is seen of the posterior horn of the medial meniscus. There is a possible tear of the body of the lateral meniscus. The anterior and posterior cruciate ligaments are intact. The medial collateral ligament and lateral ligamentous complex are intact. The patellar and quadriceps tendons are intact. There is no evidence of fracture. Moderate degenerative changes are noted of the lateral compartment. There is an osteochondral lesion of the lateral femoral condyle that measures 8 mm transverse. There is also a small osteochondral lesion of the lateral tibial plateau with adjacent bone marrow edema. Moderate to severe chondromalacia is noted of the medial patellar facet. No significant joint effusion is seen. The musculature is intact. No soft tissue mass or cyst is identified. IMPRESSION: Tear of the posterior horn of the medial meniscus. Possible tear of the body of the lateral meniscus. Moderate lateral compartment osteoarthritis with severe chondromalacia and several osteochondral lesions. Authenticated and [facility]
== END ==
PROVIDERS: PCP Physician Assistant; Visit Provider Orthopaedic Surgery
DX: M25.561 Pain in right knee (principal)
CPT/HCPCS: 73721

== ENCOUNTER → 2023-01-16 09:16 | Outpatient (CLI) | payer MEDICAID, SELFPAY ==
--- NOTE | 2023-01-16 09:21 | XR_ITS ---
FINAL REPORT CLINICAL HISTORY: right knee injury FINDINGS: Right knee Three views were obtained. There is no acute fracture or dislocation. There are mild degenerative changes. There is a possible osteochondral lesion of the lateral femoral condyle. Small joint effusion is identified. IMPRESSION: Degenerative change and small joint effusion. Reviewed, Interpreted and Dictated by Luis Crowe III, MD Transcribed by Shirley Hong Authenticated and [facility]
== END ==
PROVIDERS: PCP Physician Assistant; Visit Provider Orthopaedic Surgery
DX: M25.561 Pain in right knee (principal); S89.91XA Unspecified injury of right lower leg, initial encounter
CPT/HCPCS: 73562

== ENCOUNTER → 2023-03-18 10:41 | Outpatient (CLI) | payer MEDICAID, SELFPAY ==
--- NOTE | 2023-03-18 10:41 | CT_ITS ---
FINAL REPORT TECHNIQUE: Axial images were obtained from the lung apex to the mid abdomen by computed tomography. Coronal reformatted images were obtained. This study was performed with techniques to keep radiation doses as low as reasonably achievable, (ALARA). Individualized dose reduction techniques using automated exposure control or adjustment of mA and/or kV according to the patient''s size were employed. CLINICAL HISTORY: 6-month follow-up COMPARISON: 09/22/2022 FINDINGS: Mild changes of emphysema are present. There is mild scarring noted bilaterally. There is no axillary adenopathy. There is no hilar or mediastinal adenopathy. Heart size is normal. There is no pericardial or pleural effusion. There is a nodule near the upper lobe major fissure on the left side, that measures 5 mm best seen in image #36. This nodule is stable since the prior chest CT of August. There is mild atelectasis and/or scarring in the right lung base. Limited images of the upper abdomen are unremarkable. IMPRESSION: Nodule near the left upper lobe major fissure noted on the prior CT of August is stable since that time. Would recommend a follow-up chest CT without contrast in 6 months. Reviewed, Interpreted and Dictated by Luis Crowe III, MD Transcribed by Yvette Valdez Authenticated and [facility]
== END ==
PROVIDERS: PCP Physician Assistant; Visit Provider Internal Medicine Pulmonary Disease
DX: R91.8 Other nonspecific abnormal finding of lung field (principal)
CPT/HCPCS: 71250

== ENCOUNTER 2023-06-03 11:52 | Emergency (ER) | payer MEDICAID, SELFPAY ==
[2023-06-03 12:15] VITALS: BP 140/87; PULSE 83; RESP 18; TEMP 36.7; O2SAT 95
--- NOTE | 2023-06-03 12:37 | ED_ITS ---
Discharge Plan Disposition Patient Disposition: Home, Self-Care Condition: Good Prescriptions Prescriptions: New amoxicillin [amoxicillin] 500 mg tablet 500 mg PO BID 10 Days Qty: 20 0RF No Action ipratropium-albuterol 0.5 mg-3 mg(2.5 mg base)/3 mL solution for nebulization 3 ml inhalation Q12HP 90 Days Qty: 270 3RF Rx Instructions: To be used prior to flutter valve on a scheduled basis twice daily albuterol sulfate 90 mcg/actuation HFA aerosol inhaler 2 puff INHALATION Q6H PRN (Reason: shortness of breath or wheezing) Qty: 8.5 12RF Anoro Ellipta 62.5-25 mcg/actuation blister with device 1 inh inhalation DAILY 90 Days Qty: 180 3RF azelastine 205.5 mcg (0.15 %) spray,non-aerosol 2 spray intranasal HS 90 Days Qty: 30 3RF Rx Instructions: administer into each nostril sennosides [senna] 8.6 mg tablet 8.6 mg PO DAILY pregabalin [Lyrica] 100 mg capsule 100 mg PO BID Qty: 60 5RF fluticasone propionate 50 mcg/actuation spray,suspension See Rx Instructions .ROUTE .COMPLEX Qty: 16 10RF Dose Instruction: INSTILL ONE (1) SPRAY IN EACH NOSTRIL DAILY Rx Instructions: INSTILL ONE (1) SPRAY IN EACH NOSTRIL DAILY Claritin-D 12 Hour 5-120 mg tablet extended release 12 hr 1 tab PO DAILY PRN (Reason: allergy symptoms) Qty: 30 0RF atorvastatin 40 mg tablet See Rx Instructions .ROUTE .COMPLEX Qty: 30 10RF Dose Instruction: TAKE 1 TABLET (40MG) BY MOUTH DAILY Rx Instructions: TAKE 1 TABLET (40MG) BY MOUTH DAILY montelukast 10 mg tablet See Rx Instructions .ROUTE .COMPLEX Qty: 30 10RF Dose Instruction: TAKE 1 TABLET (10MG) BY MOUTH DAILY Rx Instructions: TAKE 1 TABLET (10MG) BY MOUTH DAILY acyclovir 800 mg tablet See Rx Instructions .ROUTE .COMPLEX Qty: 60 10RF Dose Instruction: TAKE 1 TABLET BY MOUTH TWICE DAILY Rx Instructions: TAKE 1 TABLET BY MOUTH TWICE DAILY trazodone 150 mg tablet See Rx Instructions .ROUTE .COMPLEX Qty: 30 10RF Dose Instruction: TAKE 1 TABLET (150MG) BY MOUTH EVERY NIGHT AT BEDTIME Rx Instructions: TAKE 1 TABLET (150MG) BY MOUTH EVERY NIGHT AT BEDTIME quetiapine 300 mg tablet See Rx Instructions .ROUTE .COMPLEX Qty: 30 10RF Dose Instruction: TAKE 1 TABLET (300MG) BY MOUTH AT BEDTIME Rx Instructions: TAKE 1 TABLET (300MG) BY MOUTH AT BEDTIME clopidogrel 75 mg tablet See Rx Instructions .ROUTE .COMPLEX Qty: 30 10RF Dose Instruction: TAKE 1 TABLET (75MG) BY MOUTH DAILY Rx Instructions: TAKE 1 TABLET (75MG) BY MOUTH DAILY famotidine 40 mg tablet See Rx Instructions .ROUTE .COMPLEX Qty: 30 10RF Dose Instruction: TAKE 1 TABLET (40MG) BY MOUTH DAILY Rx Instructions: TAKE 1 TABLET (40MG) BY MOUTH DAILY citalopram 40 mg tablet See Rx Instructions .ROUTE .COMPLEX Qty: 30 10RF Dose Instruction: TAKE 1 TABLET (40MG) BY MOUTH DAILY Rx Instructions: TAKE 1 TABLET (40MG) BY MOUTH DAILY ergocalciferol (vitamin D2) [Vitamin D2] 1,250 mcg (50,000 unit) capsule See Rx Instructions .ROUTE .COMPLEX Qty: 4 10RF Dose Instruction: TAKE 1 CAPSULE BY MOUTH ONCE WEEKLY Rx Instructions: TAKE 1 CAPSULE BY MOUTH ONCE WEEKLY oxybutynin chloride 5 mg tablet See Rx Instructions .ROUTE .COMPLEX Qty: 60 10RF Dose Instruction: TAKE ONE (1) TABLET BY MOUTH TWICE DAILY FOR BLADDER Rx Instructions: TAKE ONE (1) TABLET BY MOUTH TWICE DAILY FOR BLADDER losartan 25 mg tablet 25 mg PO DAILY Qty: 90 3RF omeprazole 40 mg capsule,delayed release(DR/EC) 40 mg PO DAILY aspirin 81 mg tablet,delayed release (DR/EC) 81 mg PO DAILY Referrals Follow up/Referrals: Keyana Lakhani PA [Primary Care Provider] - See instructions Activity Restrictions/Add. Instructions Additional Instructions/Restrictions: Start antibiotic as soon as possible and be sure to take as ordered for full length of time even though he should start feeling better in 24-48 hours. Tylenol or Motrin as needed for pain or fever Encourage fluids, water, Gatorade, Powerade, Pedialyte if /toddler/child Warm compresses often helps when placed over ear Return immediately for new or worsening symptoms no noticeable improvement in 48-72 hours and in 10-14 days to ensure the ears are return to baseline. Follow-up with primary care Clinical Impressions Clinical Impression: Otitis media Qualifiers: Otitis media type: suppurative Chronicity: acute Laterality: right Recurrence: non-recurrent Spontaneous tympanic membrane rupture: without spontaneous rupture Qualified Code(s): H66.001 - Acute suppurative otitis media without spontaneous rupture of ear drum, right ear Acute knee pain Qualifiers: Laterality: left Qualified Code(s): M25.562 - Pain in left knee Instructions Patient Instructions: Middle Ear Infection, DI for Knee Pain Discharge ED Provider: Yaima ([facility] [place] HPI General Stated complaint: right ear pain, cough and left knee pain no acc Mode of Arrival: Ambulatory Source of Information: Patient Limitations: No Limitations Time Seen by Provider: 06/03/23 12:37 Description of Symptoms (Recalled from Triage Doc. by RN): cough, right ear pain, left knee pain, and sinus pressure HEENT Symptoms (Recalled from RN notes): Yes Resp Symptoms (Recalled from RN notes): No Skin Symptoms (Recalled from RN notes): No MS Symptoms (Recalled from RN notes): Yes Functional Status (Recalled from RN notes): n/a History of Present Illness Provider Complaint: 53 yr old female presents for cough, right ear pain, left knee pain, and sinus pressure Related Data Home Medications Medication Instructions Recorded Confirmed aspirin 81 mg tablet,delayed 81 mg PO DAILY heart health 02/10/22 03/18/23 release omeprazole 40 mg capsule,delayed 40 mg PO DAILY GERD 02/10/22 03/18/23 release sennosides 8.6 mg tablet (senna) 8.6 mg PO DAILY 12/09/22 03/18/23 Previous Rx's Medication Instructions Recorded pregabalin 100 mg capsule (Lyrica) 100 mg PO BID RLS #60 caps 03/17/22 ipratropium 0.5 mg-albuterol 3 mg 3 ml inhalation Q12HP 90 days #270 07/30/22 (2.5 mg base)/3 mL nebulization mL soln albuterol sulfate 90 mcg/actuation 2 puff inhalation Q6H PRN 09/22/22 aerosol inhaler shortness of breath or wheezing #8.5 grams azelastine 205.5 mcg (0.15 %) 2 spray intranasal HS 90 days #30 09/22/22 nasal spray mL umeclidinium 62.5 mcg-vilanterol 1 inh inhalation DAILY 90 days 09/22/22 25 mcg/actuation powdr for #180 ea inhalation (Anoro Ellipta) fluticasone propionate 50 See Rx Instructions .Route 11/03/22 mcg/actuation nasal .COMPLEX #16 grams spray,suspension loratadine 5 mg-pseudoephedrine ER 1 tab PO DAILY PRN allergy 11/05/22 120 mg tablet,extended symptoms #30 tabs release,12hr (Claritin-D 12 Hour) acyclovir 800 mg tablet See Rx Instructions .Route 11/10/22 .COMPLEX #60 tabs atorvastatin 40 mg tablet See Rx Instructions .Route 11/10/22 .COMPLEX #30 tabs clopidogrel 75 mg tablet See Rx Instructions .Route 11/10/22 .COMPLEX #30 tabs famotidine 40 mg tablet See Rx Instructions .Route 11/10/22 .COMPLEX #30 tabs montelukast 10 mg tablet See Rx Instructions .Route 11/10/22 .COMPLEX #30 tabs quetiapine 300 mg tablet See Rx Instructions .Route 11/10/22 .COMPLEX #30 tabs trazodone 150 mg tablet See Rx Instructions .Route 11/10/22 .COMPLEX #30 tabs citalopram 40 mg tablet See Rx Instructions .Route 11/21/22 .COMPLEX #30 tabs ergocalciferol (vitamin D2) 1,250 See Rx Instructions .Route 02/20/23 mcg (50,000 unit) capsule (Vitamin .COMPLEX #4 caps D2) losartan 25 mg tablet 25 mg PO DAILY High blood pressure 02/20/23 #90 tabs oxybutynin chloride 5 mg tablet See Rx Instructions .Route 02/20/23 .COMPLEX #60 tabs amoxicillin 500 mg tablet 500 mg PO BID 10 days #20 tabs 06/03/23 Allergies Allergy/AdvReac Type Severity Reaction Status Date / Time albuterol Allergy Intermediate Verified 06/03/23 12:36 hydroxyzine [From Vistaril] Allergy Intermediate JITTERY Verified 06/03/23 12:36 Worker's Comp Is this a Worker's Comp case?: No [facility] Disclaimer: The information contained in this section may have been updated after the patient was seen, as this information can be updated by other users. Medical History Allergic rhinitis Allergic rhinitis Allergies Anxiety Appendicitis CAD (coronary artery disease) Cancer of kidney Chest pain Chronic bronchitis Chronic cough Chronic cough COPD mixed type Depression Deviated septum Dizziness Dyspnea Dyspnea on exertion Ear pain Encounter for pre-operative cardiovascular clearance Encounter for screening for malignant neoplasm of lung in current smoker with 30 pack year history or greater Fibromyalgia Gastroesophageal reflux disease History of asthma History of gastroesophageal reflux (GERD) History of primary transitional cell carcinoma of right kidney Hyperlipidemia Hypertensive disorder Nodule of left lung Osteoarthritis Persistent cough for 3 weeks or longer Pulmonary emphysema Seasonal affective disorder Smoking greater than 30 pack years Surgical History , 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) History of appendectomy History of bilateral tubal ligation History of hysterectomy History of nasal septoplasty Hx of heart artery stent Stented coronary artery Family History , 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) Pulmonary emphysema Family history of myocardial infarction Social History , [employer]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) Smoking Status: Current some day smoker tobacco type: cigarettes packs per day: 1 alcohol intake: current substance use type: denies use current occupational status: employed Travel in the last 8 weeks: None household members: spouse housing: house lives independently: No marital status: caffeine: No ROS Obtained: Yes All systems reviewed & no additional complaints except as documented Constitutional Constitutional: Reports system reviewed and no additional complaints, except as documented and Reports as per HPI Eyes Eyes: Reports system reviewed and no additional complaints, except as documented ENT Ears, Nose, Mouth, and Throat: Reports system reviewed and no additional complaints, except as documented, Reports as per HPI, Reports otalgia, Reports nasal congestion, Reports sinus pressure and Reports sore throat Cardiovascular Cardiovascular: Reports system reviewed and no additional complaints, except as documented Respiratory Respiratory: Reports system reviewed and no additional complaints, except as documented Gastrointestinal Gastrointestingal: Reports system reviewed and no additional complaints, except as documented Musculoskeletal Musculoskeletal: Reports system reviewed and no additional complaints, except as documented, Reports as per HPI and Reports arthralgias Integumentary/Breasts Skin/Breast: Reports system reviewed and no additional complaints, except as documented Neurologic Neurologic: Reports system reviewed and no additional complaints, except as documented Endocrine Endocrine: Reports system reviewed and no additional complaints, except as documented Hematologic/Lymphatic Henatologic/Lymphatic: Reports system reviewed and no additional complaints, except as documented Allergic/Immunologic Allergic/Immunologic: Reports system reviewed and no additional complaints, except as documented Physical Exam General General appearance: alert and in no apparent distress Head Head exam: atraumatic Eye Eye exam: Present normal appearance and PERRL ENT ENT exam: Present mucous membranes moist Expanded ENT Exam TM/Canal exam: Right TM: erythema, bulging and loss of landmarks Respiratory Respiratory exam: Present normal lung sounds bilaterally Cardiovascular Cardiovascular exam: Present regular rate and normal rhythm Neurological Exam Neurological exam: Present alert and oriented X3 Skin Skin exam: Present warm Medical Decision Making Medical Records Medical records reviewed: Yes I reviewed the patient's medical records. Jonathan Inquiry Pt receiving controlled substance: No Jonathan was queried for this patient: No Vital Signs: 06/03/23 12:15 Temperature 98.1 F Temperature Source Oral Pulse Rate [Right Radial] 83 Respiratory Rate 18 Blood Pressure [Right Arm] 140/87 Blood Pressure Mean [Right Arm] 104 Blood Pressure Source [Right Arm] Automatic Cuff Blood Pressure Position [Right Arm] Sitting 02 Sat by Pulse Oximetry 95 Oxygen Delivery Method Room Air Orders (Tests/Meds): ORDERS Category Date Time Status Knee XR right 3 views [XR knee RT 3V] Stat Exams 06/03/23 12:36 Ordered
--- NOTE | 2023-06-03 12:38 | XR_ITS ---
FINAL REPORT CLINICAL HISTORY: pain in left knee COMPARISON: 05/06/2022 FINDINGS: Left knee Three views were obtained. There is no acute fracture or dislocation. There are mild and moderate degenerative changes. There is a probable chronic osteochondral lesion of the lateral femoral condyle articular surface. Moderate joint effusion is identified. IMPRESSION: Degenerative changes as detailed above. Osteochondral lesion of the lateral femoral condyle. Moderate joint effusion. Reviewed, Interpreted and Dictated by Luis Crowe III, MD Transcribed by Shirley Hong Authenticated and [facility]
[2023-06-03 12:57] VITALS: BP 140/87; PULSE 83; RESP 18; TEMP 36.7; O2SAT 95
== END 2023-06-03 12:57 | disposition home or self-care (01) ==
PROVIDERS: Emergency Provider Nurse Practitioner Family; PCP Physician Assistant
DX: H66.001 Acute suppurative otitis media without spontaneous rupture of ear drum, right ear (principal); M25.562 Pain in left knee; R05.9 Cough, unspecified; R09.81 Nasal congestion; R07.0 Pain in throat; F17.210 Nicotine dependence, cigarettes, uncomplicated; J44.9 Chronic obstructive pulmonary disease, unspecified; I11.9 Hypertensive heart disease without heart failure; E78.5 Hyperlipidemia, unspecified; K21.9 Gastro-esophageal reflux disease without esophagitis; Z95.5 Presence of coronary angioplasty implant and graft
CPT/HCPCS: 73562; 99212; 99214; G0463

== ENCOUNTER 2023-12-17 14:10 | Outpatient (CLI) | payer MEDICAID, SELFPAY ==
[2023-12-17 17:21] LABS: Basophils # 0.1 K/mm3 (0-0.2); Basophils % 1.8 % (0.1-2.0); Eosinophils # 0.1 K/mm3 (0.0-0.4); Hematocrit 37.4 % (37.0-47.0); Hemoglobin 13.9 g/dL (12.2-16.2); Lymphocytes # 2.6 K/mm3 (0.7-4.5); Lymphocytes % 37.7 % (10-50); Mean Corpuscular HGB Conc 37.1 g/dL (31.8-35.4); Mean Corpuscular Volume 94.3 fl (81-99); Mean Platelet Volume 7.9 fl (7.4-10.4); Monocytes # 0.5 K/mm3 (0.1-1.0); Monocytes % 7.6 % (1.7-9.3); Neutrophils # 3.5 K/mm3 (1.8-7.8); Neutrophils % 50.8 % (37.0-80.0); Platelet Count 363 K/mm3 (142-424); Red Blood Count 3.96 M/mm3 (4.20-5.40); Red Cell Distribution Width 14.5 % (11.5-17.5); White Blood Count 6.9 K/mm3 (4.8-10.8)
[2023-12-17 17:35] LABS: Alanine Aminotransferase 23 U/L (12-78); Albumin Level 4.4 g/dl (3.5-5.0); Albumin/Globulin Ratio 1.8 (1.1-1.8); Alkaline Phosphatase 78 U/L (38-126); Aspartate Amino Transferase 35 U/L (14-36); Bilirubin,Total 0.7 mg/dl (0.2-1.3); Blood Urea Nitrogen 10 mg/dl (7-17); Carbon Dioxide 26 mmol/L (22.0-30.0); Chloride 104 mmol/L (98-107); Chol/HDL Ratio 3.8 (1-3.5); Cholesterol 187 mg/dl (140-200); Estimated Glomerular Filt Rate 58 ml/min (>60); GFR (African American) 70 ML/MIN (>60); Globulin 2.4 g/dL (1.3-3.2); Glucose 83 mg/dl (74-100); HDL Cholesterol 49 mg/dl (40-60); Sodium 137 mmol/L (136-145); Total Protein,Serum 6.8 g/dl (6.3-8.2); Triglycerides 189 mg/dl (30-150); VLDL Cholesterol 38 mg/dL (0-40)
[2023-12-17 17:54] LABS: 25-OH Vitamin D, Total 40.1 ng/mL (30-100)
[2023-12-17 18:07] LABS: Thyroid Stimulating Hormone 0.56 uIU/mL (0.465-4.68)
== END 2023-12-17 23:59 | disposition home or self-care (01) ==
LOC: LAB.DROPOF 12-18 14:10
PROVIDERS: PCP Physician Assistant; Visit Provider Physician Assistant
DX: E78.5 Hyperlipidemia, unspecified (principal); I10 Essential (primary) hypertension
CPT/HCPCS: 80050; 80053; 80061; 82306; 84443; 85025

== ENCOUNTER 2023-12-31 15:48 | Outpatient (CLI) | payer MEDICAID, SELFPAY ==
[2023-12-31 16:39] LABS: Blood Urea Nitrogen 15 mg/dl (7-17); Calcium 9.8 mg/dl (8.4-10.2); Carbon Dioxide 24 mmol/L (22.0-30.0); Chloride 108 mmol/L (98-107); Estimated Glomerular Filt Rate 47 ml/min (>60); GFR (African American) 57 ML/MIN (>60); Glucose 72 mg/dl (74-100); Sodium 141 mmol/L (136-145)
== END 2023-12-31 23:59 | disposition home or self-care (01) ==
LOC: LAB 15:49
PROVIDERS: PCP Physician Assistant; Visit Provider Physician Assistant
DX: N39.46 Mixed incontinence (principal)
CPT/HCPCS: 36415; 80048

== ENCOUNTER 2024-02-11 11:15 | Emergency (ER) | payer MEDICAID, SELFPAY ==
--- NOTE | 2024-02-11 11:34 | ED_ITS ---
Discharge Plan Disposition Patient Disposition: Home, Self-Care Condition: Good Prescriptions Prescriptions: New methylprednisolone 4 mg Tablets,Dose Pack 4 mg PO DIRECTED 6 Days Qty: 21 0RF Rx Instructions: Take 1 pack as directed for 6 days No Action albuterol sulfate 90 mcg/actuation HFA aerosol inhaler 2 puff INHALATION Q6H PRN (Reason: shortness of breath or wheezing) Qty: 8.5 12RF acyclovir 800 mg tablet See Rx Instructions .ROUTE .COMPLEX Qty: 60 10RF Dose Instruction: TAKE 1 TABLET BY MOUTH TWICE DAILY Rx Instructions: TAKE 1 TABLET BY MOUTH TWICE DAILY aspirin 81 mg tablet,delayed release (DR/EC) 81 mg PO DAILY Qty: 90 3RF atorvastatin 40 mg tablet See Rx Instructions .ROUTE .COMPLEX Qty: 90 3RF Dose Instruction: TAKE 1 TABLET (40MG) BY MOUTH DAILY Rx Instructions: TAKE 1 TABLET (40MG) BY MOUTH DAILY citalopram 40 mg tablet See Rx Instructions .ROUTE .COMPLEX Qty: 90 3RF Dose Instruction: TAKE 1 TABLET (40MG) BY MOUTH DAILY Rx Instructions: TAKE 1 TABLET (40MG) BY MOUTH DAILY clopidogrel 75 mg tablet See Rx Instructions .ROUTE .COMPLEX Qty: 90 3RF Dose Instruction: TAKE 1 TABLET (75MG) BY MOUTH DAILY Rx Instructions: TAKE 1 TABLET (75MG) BY MOUTH DAILY ergocalciferol (vitamin D2) [Vitamin D2] 1,250 mcg (50,000 unit) capsule See Rx Instructions .ROUTE .COMPLEX Qty: 14 3RF Dose Instruction: TAKE 1 CAPSULE BY MOUTH ONCE WEEKLY Rx Instructions: TAKE 1 CAPSULE BY MOUTH ONCE WEEKLY famotidine 40 mg tablet See Rx Instructions .ROUTE .COMPLEX Qty: 90 3RF Dose Instruction: TAKE 1 TABLET (40MG) BY MOUTH DAILY Rx Instructions: TAKE 1 TABLET (40MG) BY MOUTH DAILY fluticasone propionate 50 mcg/actuation spray,suspension See Rx Instructions .ROUTE .COMPLEX Qty: 16 10RF Dose Instruction: INSTILL ONE (1) SPRAY IN EACH NOSTRIL DAILY Rx Instructions: INSTILL ONE (1) SPRAY IN EACH NOSTRIL DAILY azelastine 205.5 mcg (0.15 %) spray,non-aerosol 2 spray intranasal HS 90 Days Qty: 30 3RF Rx Instructions: administer into each nostril losartan 25 mg tablet 25 mg PO DAILY Qty: 90 3RF montelukast 10 mg tablet See Rx Instructions .ROUTE .COMPLEX Qty: 90 3RF Dose Instruction: TAKE 1 TABLET (10MG) BY MOUTH DAILY Rx Instructions: TAKE 1 TABLET (10MG) BY MOUTH DAILY omeprazole 40 mg capsule,delayed release(DR/EC) 40 mg PO DAILY Qty: 90 3RF oxybutynin chloride 5 mg tablet See Rx Instructions .ROUTE .COMPLEX Qty: 180 3RF Dose Instruction: TAKE ONE (1) TABLET BY MOUTH TWICE DAILY FOR BLADDER Rx Instructions: TAKE ONE (1) TABLET BY MOUTH TWICE DAILY FOR BLADDER sennosides [senna] 8.6 mg tablet 8.6 mg PO DAILY Qty: 90 3RF quetiapine 300 mg tablet See Rx Instructions .ROUTE .COMPLEX Qty: 30 0RF Dose Instruction: TAKE 1 TABLET (300MG) BY MOUTH AT BEDTIME Rx Instructions: TAKE 1 TABLET (300MG) BY MOUTH AT BEDTIME trazodone 150 mg tablet See Rx Instructions .ROUTE .COMPLEX Qty: 30 0RF Dose Instruction: TAKE 1 TABLET (150MG) BY MOUTH EVERY NIGHT AT BEDTIME Rx Instructions: TAKE 1 TABLET (150MG) BY MOUTH EVERY NIGHT AT BEDTIME Anoro Ellipta 62.5-25 mcg/actuation blister with device See Rx Instructions .ROUTE .COMPLEX Qty: 180 0RF Dose Instruction: Inhale 1 puff by mouth once daily Rx Instructions: Inhale 1 puff by mouth once daily Referrals Follow up/Referrals: Keyana Lakhani PA [Primary Care Provider] - See instructions Abe Rodriguez DO [Staff Physician] - See instructions Activity Restrictions/Add. Instructions Additional Instructions/Restrictions: Rest the extremity, Wear the yvette wrap for compression, Elevate the extremity as tolerated while you are resting. Take ibuprofen for pain. I sent in a prescription to your pharmacy. Follow up with Dr. Rodriguez (orthopedics). Sometimes there can be fractures that don't show up well on the first set of x-rays. So, you should follow up if you continue to have symptoms. I put in a referral but you need to call his office and schedule an appointment. Follow up with your regular doctor. GO TO THE ER FOR ANY WORSENING SYMPTOMS Clinical Impressions Clinical Impression: Left knee pain, Effusion of left knee, Osteoarthritis Stand Alone Forms Stand Alone Forms: Work/School Release Instructions Patient Instructions: How to Use Crutches, DI for Knee Pain, How to Use a Knee Immobilizer Print Language Print Language: Georgian Discharge ED Provider: Stewart Drummond [facility] [place] HPI General Stated complaint: L knee pain Time Seen by Provider: 02/11/24 11:34 Related Data Previous Rx's ?Medication ?Instructions ?Recorded albuterol sulfate 90 mcg/actuation 2 puff inhalation Q6H PRN 09/22/22 aerosol inhaler shortness of breath or wheezing #8.5 grams umeclidinium 62.5 mcg-vilanterol See Rx Instructions .Route 12/10/23 25 mcg/actuation powdr for .COMPLEX #180 ea inhalation (Anoro Ellipta) acyclovir 800 mg tablet See Rx Instructions .Route 12/17/23 .COMPLEX #60 tabs aspirin 81 mg tablet,delayed 81 mg PO DAILY heart health #90 12/17/23 release tabs atorvastatin 40 mg tablet See Rx Instructions .Route 12/17/23 .COMPLEX #90 tabs azelastine 205.5 mcg (0.15 %) 2 spray intranasal HS 90 days #30 12/17/23 nasal spray mL citalopram 40 mg tablet See Rx Instructions .Route 12/17/23 .COMPLEX #90 tabs clopidogrel 75 mg tablet See Rx Instructions .Route 12/17/23 .COMPLEX #90 tabs ergocalciferol (vitamin D2) 1,250 See Rx Instructions .Route 12/17/23 mcg (50,000 unit) capsule (Vitamin .COMPLEX #14 caps D2) famotidine 40 mg tablet See Rx Instructions .Route 12/17/23 .COMPLEX #90 tabs fluticasone propionate 50 See Rx Instructions .Route 12/17/23 mcg/actuation nasal .COMPLEX #16 grams spray,suspension losartan 25 mg tablet 25 mg PO DAILY High blood pressure 12/17/23 #90 tabs montelukast 10 mg tablet See Rx Instructions .Route 12/17/23 .COMPLEX #90 tabs omeprazole 40 mg capsule,delayed 40 mg PO DAILY GERD #90 caps 12/17/23 release oxybutynin chloride 5 mg tablet See Rx Instructions .Route 12/17/23 .COMPLEX #180 tabs quetiapine 300 mg tablet See Rx Instructions .Route 12/17/23 .COMPLEX #30 tabs sennosides 8.6 mg tablet (senna) 8.6 mg PO DAILY #90 tabs 07/18/24 trazodone 150 mg tablet See Rx Instructions .Route 12/17/23 .COMPLEX #30 tabs methylprednisolone 4 mg tablets in 4 mg PO DIRECTED 6 days #21 tabs 02/11/24 a dose pack Allergies Allergy/AdvReac Type Severity Reaction Status Date / Time albuterol Allergy Intermediate Verified 12/17/23 10:54 hydroxyzine [From Vistaril] Allergy Intermediate JITTERY Verified 12/17/23 10:54 [facility] Disclaimer: The information contained in this section may have been updated after the patient was seen, as this information can be updated by other users. Medical History (Updated 02/11/24 @ 12:45 by Stewart Drummond APRN) Chronic cough Nodule of left lung COPD mixed type Encounter for screening for malignant neoplasm of lung in current smoker with 30 pack year history or greater Smoking greater than 30 pack years Allergic rhinitis History of asthma Chronic bronchitis Pulmonary emphysema Dyspnea on exertion Chronic cough Anxiety Depression Osteoarthritis History of gastroesophageal reflux (GERD) Appendicitis Deviated septum Allergies History of primary transitional cell carcinoma of right kidney Cancer of kidney Dizziness Encounter for pre-operative cardiovascular clearance Chest pain Dyspnea CAD (coronary artery disease) Allergic rhinitis Seasonal affective disorder Ear pain Fibromyalgia Gastroesophageal reflux disease Hyperlipidemia Hypertensive disorder Persistent cough for 3 weeks or longer Surgical History History of nasal septoplasty Hx of heart artery stent History of bilateral tubal ligation History of hysterectomy History of appendectomy Stented coronary artery Family History Other Family history of myocardial infarction Pulmonary emphysema Social History (Updated 08/27/23 @ 13:51 by Caprice Garzon) Smoking Status: Former smoker tobacco type: cigarettes packs per day: 1 smoking status stop date: 08/13/23 alcohol intake: current alcohol intake frequency: holidays/special occasions only substance use type: denies use current occupational status: employed Travel in the last 8 weeks: None household members: spouse housing: house lives independently: No marital status: caffeine: No ROS Obtained: Yes All systems reviewed & no additional complaints except as documented Constitutional Constitutional: Denies chills and Denies fever(s) Eyes Eyes: Denies eye discharge ENT Ears, Nose, Mouth, and Throat: Denies dizziness, Denies otalgia and Denies sore throat Cardiovascular Cardiovascular: Denies chest pain Respiratory Respiratory: Denies shortness of breath, Denies chest congestion, Denies cough, Denies stridor and Denies wheezing Gastrointestinal Gastrointestingal: Denies nausea or vomiting Musculoskeletal Musculoskeletal: Reports as per HPI Integumentary/Breasts Skin/Breast: Denies dry skin, Denies rash and Denies wounds Neurologic Neurologic: Denies dizziness and Denies paresthesias Allergic/Immunologic Allergic/Immunologic: Denies wheezing Physical Exam General General appearance: alert and in no apparent distress Head Head exam: atraumatic, normocephalic and normal inspection Eye Eye exam: Present normal appearance, PERRL and EOMI ENT ENT exam: Present normal exam, normal oropharynx, mucous membranes moist, TM's normal bilaterally and normal external ear exam Neck Neck exam: Present normal inspection, full ROM and trachea midline; Absent meningismus or lymphadenopathy Chest Chest inspection: Present normal inspection and symmetric chest wall rise; Absent tenderness Respiratory Respiratory exam: Present normal lung sounds bilaterally; Absent respiratory distress Cardiovascular Cardiovascular exam: Present regular rate and normal rhythm; Absent JVD Abdominal Exam Abdominal exam: Present soft and normal bowel sounds; Absent distention, tenderness or guarding Extremities Exam Extremities exam: Present normal capillary refill; Absent calf tenderness Expanded Lower Extremity Exam Left: Hip/Pelvis exam: Present normal inspection and full ROM; Absent tenderness Upper leg exam: Present full ROM; Absent normal inspection or tenderness Knee exam: Present tenderness, swelling, effusion and knee extension intact; Absent full ROM, abrasion, laceration, ecchymosis, deformity, crepitus, dislocation, erythema, anterior drawer sign, posterior draw sign, pain with valgus, laxity with valgus, pain with varus or laxity with varus Lower leg exam: Present normal inspection, full ROM and Achilles tendon intact; Absent tenderness or Homans' sign Back Exam Back exam: Present normal inspection; Absent tenderness Neurological Exam Neurological exam: Present alert and oriented X3 Psychiatric Psychiatric exam: Present normal affect and normal mood Skin Skin exam: Present warm, dry, intact and normal color Lymphatic Lymphatic Findings: no adenopathy Medical Decision Making Medical Records Medical records reviewed: No I reviewed the patient's medical records. Jonathan Inquiry Pt receiving controlled substance: No Radiology Data #1: Image(s): Knee Image Reviewed: Yes I reviewed the patient's radiology image and Yes I have reviewed radiologist's interpretation Preliminary Findings: No Fracture Seen Accession No. : [id number] Patient Name / ID : Rowena Cheng / [id number] Exam Date : 02/11/2024 11:39:22 ( Final ) Study Comment : Sex / Age : F / 53Y Creator : CORINA CROWE MD Dictator : Certified Respiratory Therapist : Enterprise Systems Manager : CORINA CROWE MD Approver2 : Report Date : 02/11/2024 12:53:19 My Comment : FINAL REPORT CLINICAL HISTORY: pain left knee pain COMPARISON: 06/03/2023 FINDINGS: Left knee Three views were obtained. There is no acute fracture or dislocation. There are mild and moderate degenerative changes. There is moderate lateral compartment narrowing. Small joint effusion is identified. IMPRESSION: Degenerative changes and small joint effusion, similar to previous. Reviewed, Interpreted and Dictated by Corina Crowe III, MD Transcribed by Shirley Hong Authenticated and [facility]
--- NOTE | 2024-02-11 11:41 | XR_ITS ---
FINAL REPORT CLINICAL HISTORY: pain left knee pain COMPARISON: 06/03/2023 FINDINGS: Left knee Three views were obtained. There is no acute fracture or dislocation. There are mild and moderate degenerative changes. There is moderate lateral compartment narrowing. Small joint effusion is identified. IMPRESSION: Degenerative changes and small joint effusion, similar to previous. Reviewed, Interpreted and Dictated by Luis Crowe III, MD Transcribed by Shirley Hong Authenticated and [facility]
[2024-02-11 11:53] VITALS: BP 121/89; PULSE 77; RESP 16; TEMP 36.8; O2SAT 98
[2024-02-11] MEDS: DEXAMETHASONE 4MG/ML 1ML VIAL 8 MG IM (12:36)
[2024-02-11] MEDS: KETOROLAC 60MG/2ML VIAL 30 MG IM (12:36)
[2024-02-11 13:05] VITALS: BP 121/89; PULSE 77; RESP 16; TEMP 36.8; O2SAT 98
== END 2024-02-11 13:06 | disposition home or self-care (01) ==
PROVIDERS: Emergency Provider Nurse Practitioner Family; PCP Physician Assistant
DX: M25.562 Pain in left knee (principal); M25.462 Effusion, left knee; M17.12 Unilateral primary osteoarthritis, left knee
CPT/HCPCS: 73562; 96372; 99212; 99214; G0463; J1100; J1885

== ENCOUNTER 2024-03-28 14:59 | Outpatient (CLI) | payer MEDICAID, SELFPAY ==
--- NOTE | 2024-03-28 15:00 | CT_ITS ---
FINAL REPORT TECHNIQUE: Thin section axial images were obtained from the lung apices to the upper abdomen by computed tomography. Reformatted images were obtained and reviewed. This study was performed with techniques to keep radiation doses al low as reasonably achievable (ALARA). Individualized dose reduction techniques using automated exposure control or adjustment of mA and/or kV according to the patient's size were employed. CLINICAL HISTORY: current smoker, 1ppd, 28 years COMPARISON: CT low-dose 09/22/[address] chest 03/18/2023 FINDINGS: CHEST CT LOW DOSE CTDI vol (mGy): 2.90 DLP (mGy-cm): 96.64 There is no mediastinal or hilar lymphadenopathy. The heart is normal in size. There is a small pericardial effusion. Moderate coronary artery calcifications are noted. There is no pleural effusion. There is mild emphysema and mild pulmonary scarring. Lung window images demonstrate, a stable 5 mm anterior left lower lobe nodule on series 3 image 35. No new mass or pulmonary nodule identified. Limited images of the upper abdomen are unremarkable. IMPRESSION: Lung-RADS category 2. Recommend 12 month follow up low dose chest CT. Authenticated and [facility]
== END 2024-03-28 23:59 | disposition home or self-care (01) ==
LOC: RAD 15:00
PROVIDERS: PCP Internal Medicine Pulmonary Disease; Visit Provider Internal Medicine Pulmonary Disease
DX: F17.210 Nicotine dependence, cigarettes, uncomplicated (principal); R93.89 Abnormal findings on diagnostic imaging of other specified body structures; R06.09 Other forms of dyspnea; J43.2 Centrilobular emphysema; Z87.09 Personal history of other diseases of the respiratory system; J30.1 Allergic rhinitis due to pollen; Z12.2 Encounter for screening for malignant neoplasm of respiratory organs; J44.9 Chronic obstructive pulmonary disease, unspecified; R91.1 Solitary pulmonary nodule
CPT/HCPCS: 71271

== ENCOUNTER 2024-04-18 12:29 | Emergency (ER) | payer MEDICAID, SELFPAY ==
[2024-04-18 12:31] VITALS: BP 152/59; PULSE 83; RESP 18; O2SAT 98; BMI 34.3
--- NOTE | 2024-04-18 13:42 | XR_ITS ---
PROCEDURE INFORMATION: Exam: XR Left Knee Exam date and time: 04/18/2024 1:49 PM Age: 53 years old Clinical indication: Injury or trauma; Fall; Blunt trauma; Knee; Left; Additional info: Fall, pain TECHNIQUE: Imaging protocol: Radiologic exam of the left knee. Views: 3 views. COMPARISON: CR XR KNEE LT 3V 02/11/2024 11:39 AM FINDINGS: Bones/joints: Small joint effusion. No visible fracture or dislocation. Soft tissues: Normal. IMPRESSION: No visible fracture or dislocation.
--- NOTE | 2024-04-18 13:42 | XR_ITS ---
PROCEDURE INFORMATION: Exam: XR Left Wrist Exam date and time: 04/18/2024 1:59 PM Age: 53 years old Clinical indication: Injury or trauma; Fall; Blunt trauma (contusions or hematomas); Wrist; Left; Additional info: Fall, pain TECHNIQUE: Imaging protocol: Radiologic exam of the left wrist. Views: 3 or more views. COMPARISON: CR XR HAND LT MIN 3V 04/18/2024 1:57 PM FINDINGS: Bones/joints: No visible fracture or dislocation. Soft tissues: Normal. IMPRESSION: No visible fracture or dislocation.
--- NOTE | 2024-04-18 13:42 | XR_ITS ---
PROCEDURE INFORMATION: Exam: XR Left Forearm Exam date and time: 04/18/2024 2:02 PM Age: 53 years old Clinical indication: Injury or trauma; Fall; Blunt trauma (contusions or hematomas); Arm, lower; Left; Additional info: Fall, pain TECHNIQUE: Imaging protocol: Radiologic exam of the left forearm. Views: 2 views. COMPARISON: CR XR WRIST LT MIN 3V 04/18/2024 1:59 PM FINDINGS: Bones/joints: No visible fracture or dislocation. Soft tissues: Normal. IMPRESSION: No visible fracture or dislocation.
--- NOTE | 2024-04-18 13:42 | XR_ITS ---
PROCEDURE INFORMATION: Exam: XR Left Femur Exam date and time: 04/18/2024 1:47 PM Age: 53 years old Clinical indication: Pain; Knee; Left; Additional info: Fall, pain TECHNIQUE: Imaging protocol: Radiologic exam of the left femur. Views: 2 views. COMPARISON: CR XR HIP LT 2-3V W/PELVIS 04/18/2024 1:46 PM FINDINGS: Bones/joints: Unremarkable. No acute fracture. Soft tissues: Unremarkable. IMPRESSION: No acute findings.
--- NOTE | 2024-04-18 13:42 | XR_ITS ---
PROCEDURE INFORMATION: Exam: XR Left Hip Exam date and time: 04/18/2024 1:46 PM Age: 53 years old Clinical indication: Injury or trauma; Fall; Blunt trauma (contusions or hematomas); Left; Hip; Additional info: Fall, pain TECHNIQUE: Imaging protocol: Radiologic exam of the left hip. Views: 2 or 3 views hip with pelvis when performed. COMPARISON: MR LUMBAR SPINE WO CON 05/30/2020 8:08 AM FINDINGS: Bones/joints: No visible fracture or dislocation. Soft tissues: Unremarkable. IMPRESSION: No visible fracture or dislocation.
--- NOTE | 2024-04-18 13:42 | XR_ITS ---
PROCEDURE INFORMATION: Exam: XR Left Hand Exam date and time: 04/18/2024 1:57 PM Age: 53 years old Clinical indication: Injury or trauma; Fall; Blunt trauma (contusions or hematomas); Hand; Left; Additional info: Fall, pain TECHNIQUE: Imaging protocol: Radiologic exam of the left hand. Views: 3 or more views. COMPARISON: No relevant prior studies available. FINDINGS: Bones/joints: No visible fracture or dislocation. Soft tissues: Normal. IMPRESSION: No visible fracture or dislocation.
--- NOTE | 2024-04-18 13:46 | HMH.EDGENADL ---
Discharge Plan Disposition Patient Disposition: Home, Self-Care Condition: Good Prescriptions Prescriptions: No Action albuterol sulfate 90 mcg/actuation HFA aerosol inhaler 2 puff INHALATION Q6H PRN (Reason: shortness of breath or wheezing) Qty: 8.5 12RF nicotine (polacrilex) 2 mg mini lozenge 2 mg buccal Q4H PRN (Reason: nicotine cravings) Qty: 81 0RF nitroglycerin 0.4 mg tablet, sublingual 0.4 mg sublingual Q5M PRN (Reason: chest pain) Qty: 25 0RF Rx Instructions: do not exceed 3 doses per episode acyclovir 800 mg tablet See Rx Instructions .ROUTE .COMPLEX Qty: 60 10RF Dose Instruction: TAKE 1 TABLET BY MOUTH TWICE DAILY Rx Instructions: TAKE 1 TABLET BY MOUTH TWICE DAILY aspirin 81 mg tablet,delayed release (DR/EC) 81 mg PO DAILY Qty: 90 3RF atorvastatin 40 mg tablet See Rx Instructions .ROUTE .COMPLEX Qty: 90 3RF Dose Instruction: TAKE 1 TABLET (40MG) BY MOUTH DAILY Rx Instructions: TAKE 1 TABLET (40MG) BY MOUTH DAILY citalopram 40 mg tablet See Rx Instructions .ROUTE .COMPLEX Qty: 90 3RF Dose Instruction: TAKE 1 TABLET (40MG) BY MOUTH DAILY Rx Instructions: TAKE 1 TABLET (40MG) BY MOUTH DAILY clopidogrel 75 mg tablet See Rx Instructions .ROUTE .COMPLEX Qty: 90 3RF Dose Instruction: TAKE 1 TABLET (75MG) BY MOUTH DAILY Rx Instructions: TAKE 1 TABLET (75MG) BY MOUTH DAILY ergocalciferol (vitamin D2) [Vitamin D2] 1,250 mcg (50,000 unit) capsule See Rx Instructions .ROUTE .COMPLEX Qty: 14 3RF Dose Instruction: TAKE 1 CAPSULE BY MOUTH ONCE WEEKLY Rx Instructions: TAKE 1 CAPSULE BY MOUTH ONCE WEEKLY famotidine 40 mg tablet See Rx Instructions .ROUTE .COMPLEX Qty: 90 3RF Dose Instruction: TAKE 1 TABLET (40MG) BY MOUTH DAILY Rx Instructions: TAKE 1 TABLET (40MG) BY MOUTH DAILY fluticasone propionate 50 mcg/actuation spray,suspension See Rx Instructions .ROUTE .COMPLEX Qty: 16 10RF Dose Instruction: INSTILL ONE (1) SPRAY IN EACH NOSTRIL DAILY Rx Instructions: INSTILL ONE (1) SPRAY IN EACH NOSTRIL DAILY azelastine 205.5 mcg (0.15 %) spray,non-aerosol 2 spray intranasal HS 90 Days Qty: 30 3RF Rx Instructions: administer into each nostril losartan 25 mg tablet 25 mg PO DAILY Qty: 90 3RF montelukast 10 mg tablet See Rx Instructions .ROUTE .COMPLEX Qty: 90 3RF Dose Instruction: TAKE 1 TABLET (10MG) BY MOUTH DAILY Rx Instructions: TAKE 1 TABLET (10MG) BY MOUTH DAILY omeprazole 40 mg capsule,delayed release(DR/EC) 40 mg PO DAILY Qty: 90 3RF oxybutynin chloride 5 mg tablet See Rx Instructions .ROUTE .COMPLEX Qty: 180 3RF Dose Instruction: TAKE ONE (1) TABLET BY MOUTH TWICE DAILY FOR BLADDER Rx Instructions: TAKE ONE (1) TABLET BY MOUTH TWICE DAILY FOR BLADDER sennosides [senna] 8.6 mg tablet 8.6 mg PO DAILY Qty: 90 3RF quetiapine 300 mg tablet See Rx Instructions .ROUTE .COMPLEX Qty: 30 0RF Dose Instruction: TAKE 1 TABLET (300MG) BY MOUTH AT BEDTIME Rx Instructions: TAKE 1 TABLET (300MG) BY MOUTH AT BEDTIME trazodone 150 mg tablet See Rx Instructions .ROUTE .COMPLEX Qty: 30 0RF Dose Instruction: TAKE 1 TABLET (150MG) BY MOUTH EVERY NIGHT AT BEDTIME Rx Instructions: TAKE 1 TABLET (150MG) BY MOUTH EVERY NIGHT AT BEDTIME Anoro Ellipta 62.5-25 mcg/actuation blister with device See Rx Instructions .ROUTE .COMPLEX Qty: 180 0RF Dose Instruction: Inhale 1 puff by mouth once daily Rx Instructions: Inhale 1 puff by mouth once daily Referrals Follow up/Referrals: Keyana Lakhani PA [Primary Care Provider] - See instructions Activity Restrictions/Add. Instructions Additional Instructions/Restrictions: You were evaluated in the emergency department today. At this time, your x-rays do not demonstrate any acute broken bones. Please take Tylenol every 4 hours and ibuprofen every 6 hours at home as needed for pain. Follow-up closely with your primary care provider. Return to the emergency department for new or worsening symptoms. Clinical Impressions Clinical Impression: Acute wrist pain, Acute pain of left knee, Tailbone injury Stand Alone Forms Stand Alone Forms: Work/School Release Instructions Patient Instructions: DI for Acute Pain -- Adult Print Language Print Language: Persian Discharge ED Provider: Porsche Ballesteros General Adult HPI General Chief complaint: Extremity Injury, Lower Stated complaint: fall 04/17, left wrist injury, tail bone pain Time Seen by Provider: 04/18/24 12:53 Mode of Arrival: Ambulatory Source of Information: Patient Limitations: No Limitations Description of Symptoms (Recalled from ER Triage Doc. by RN): c/o buttock,left wrist and left knee pain after tripping on her dogs urine last night around midnight. Denies hitting her head or other injuries at this time. States she has a hx of a bad left knee. History of Present Illness HPI narrative: This patient is a 53-year-old female with a history of CAD status post stenting, COPD, fibromyalgia presenting to the emergency department for evaluation with concern for left wrist pain, tailbone pain, and left knee pain after a mechanical ground-level fall. Patient reports that she slipped on her dog's urine last night around midnight and fell, landing on her left wrist, buttock, and injuring her left knee. She notes she has a bad knee anyway because of arthritis. No head injury or loss of consciousness. No head, neck, back pain, chest pain, or abdominal pain. No numbness or tingling noted. She is requesting a few days of pain medication to get her over this. She is still ambulatory and able to bear weight on her leg. Related Data Previous Rx's ?Medication ?Instructions ?Recorded albuterol sulfate 90 mcg/actuation 2 puff inhalation Q6H PRN 09/22/22 aerosol inhaler shortness of breath or wheezing #8.5 grams acyclovir 800 mg tablet See Rx Instructions .Route 12/17/23 .COMPLEX #60 tabs aspirin 81 mg tablet,delayed 81 mg PO DAILY heart health #90 12/17/23 release tabs atorvastatin 40 mg tablet See Rx Instructions .Route 12/17/23 .COMPLEX #90 tabs azelastine 205.5 mcg (0.15 %) 2 spray intranasal HS 90 days #30 12/17/23 nasal spray mL citalopram 40 mg tablet See Rx Instructions .Route 12/17/23 .COMPLEX #90 tabs clopidogrel 75 mg tablet See Rx Instructions .Route 12/17/23 .COMPLEX #90 tabs ergocalciferol (vitamin D2) 1,250 See Rx Instructions .Route 12/17/23 mcg (50,000 unit) capsule (Vitamin .COMPLEX #14 caps D2) famotidine 40 mg tablet See Rx Instructions .Route 12/17/23 .COMPLEX #90 tabs fluticasone propionate 50 See Rx Instructions .Route 12/17/23 mcg/actuation nasal .COMPLEX #16 grams spray,suspension losartan 25 mg tablet 25 mg PO DAILY High blood pressure 12/17/23 #90 tabs montelukast 10 mg tablet See Rx Instructions .Route 12/17/23 .COMPLEX #90 tabs omeprazole 40 mg capsule,delayed 40 mg PO DAILY GERD #90 caps 12/17/23 release oxybutynin chloride 5 mg tablet See Rx Instructions .Route 12/17/23 .COMPLEX #180 tabs quetiapine 300 mg tablet See Rx Instructions .Route 12/17/23 .COMPLEX #30 tabs sennosides 8.6 mg tablet (senna) 8.6 mg PO DAILY #90 tabs 12/17/23 trazodone 150 mg tablet See Rx Instructions .Route 12/17/23 .COMPLEX #30 tabs umeclidinium 62.5 mcg-vilanterol See Rx Instructions .Route 03/11/24 25 mcg/actuation powdr for .COMPLEX #180 ea inhalation (Anoro Ellipta) nicotine (polacrilex) 2 mg buccal 2 mg buccal Q4H PRN nicotine 04/05/24 mini lozenge cravings #81 ea nitroglycerin 0.4 mg sublingual 0.4 mg sublingual Q5M PRN chest 04/06/24 tablet pain #25 tabs Allergies Allergy/AdvReac Type Severity Reaction Status Date / Time albuterol Allergy Intermediate Verified 04/06/24 14:02 hydroxyzine (From Vistaril) Allergy Intermediate JITTERY Verified 04/06/24 14:02 [facility] Disclaimer: The information contained in this section may have been updated after the patient was seen, as this information can be updated by other users. Medical History Dyspnea Chest pain Chronic cough Nodule of left lung COPD mixed type Encounter for screening for malignant neoplasm of lung in current smoker with 30 pack year history or greater Smoking greater than 30 pack years Allergic rhinitis History of asthma Chronic bronchitis Pulmonary emphysema Dyspnea on exertion Chronic cough Anxiety Depression Osteoarthritis History of gastroesophageal reflux (GERD) Appendicitis Deviated septum Allergies History of primary transitional cell carcinoma of right kidney Cancer of kidney Dizziness Encounter for pre-operative cardiovascular clearance CAD (coronary artery disease) Allergic rhinitis Seasonal affective disorder Ear pain Fibromyalgia Gastroesophageal reflux disease Hyperlipidemia Hypertensive disorder Persistent cough for 3 weeks or longer Surgical History History of nasal septoplasty Hx of heart artery stent History of bilateral tubal ligation History of hysterectomy History of appendectomy Stented coronary artery Family History Other Family history of myocardial infarction Pulmonary emphysema Social History Smoking Status: Former smoker tobacco type: cigarettes packs per day: 1 smoking status stop date: 08/13/23 alcohol intake: current alcohol intake frequency: holidays/special occasions only substance use type: denies use current occupational status: employed Travel in the last 8 weeks: None household members: spouse housing: house lives independently: No marital status: caffeine: No Other Medical History Have you received the Flu Vaccine for this season: Yes Have you received the Pneumonia Vaccine: Yes ROS Obtained: Yes All systems reviewed & no additional complaints except as documented Physical Exam General General appearance: alert and in no apparent distress Head Head exam: atraumatic and normocephalic Eye Eye exam: Present normal appearance, PERRL and EOMI ENT ENT exam: Present normal exam, normal oropharynx, mucous membranes moist and normal external ear exam Neck Neck exam: Present normal inspection, full ROM and trachea midline; Absent tenderness Chest Chest inspection: Present normal inspection and symmetric chest wall rise; Absent tenderness Respiratory Respiratory exam: Present normal lung sounds bilaterally; Absent respiratory distress, wheezes, stridor or accessory muscle use Cardiovascular Cardiovascular exam: Present regular rate and normal rhythm Abdominal Exam Abdominal exam: Present soft; Absent distention, tenderness or guarding Extremities Exam Extremities exam: Present full ROM, tenderness (Tenderness palpation of the left distal forearm, tailbone, left knee. All compartments soft. Neurovascularly intact distally. ) and normal capillary refill; Absent edema Back Exam Back exam: Present normal inspection and full ROM; Absent tenderness Neurological Exam Neurological exam: Present alert, oriented X3, CN II-XII intact and normal gait; Absent motor sensory deficit Psychiatric Psychiatric exam: Present normal affect and normal mood Skin Skin exam: Present warm and dry Medical Decision Making Medical Records Medical records reviewed: Yes I reviewed the patient's medical records. Screening: Per USPSTF and CDC recommendations, given the prevalence of disease in our region, it is our hospital?s policy to screen for HIV and viral Hepatitis for all patients aged 18 and over and those with ongoing risk factors. Jonathan Inquiry Pt receiving controlled substance: No Vital Signs: 04/18/24 12:31 04/18/24 15:21 Temperature 98 F Pulse Rate 80 Pulse Rate [Left Radial] 83 Respiratory Rate 18 18 Blood Pressure 141/60 H Blood Pressure [Right Arm] 152/59 H Blood Pressure Mean [Right Arm] 90 Blood Pressure Source [Right Arm] Automatic Cuff Blood Pressure Position [Right Arm] Sitting 02 Sat by Pulse Oximetry 98 Oxygen Delivery Method Room Air Lab Data Lab results reviewed: Yes I reviewed the patient's lab results. Orders (Tests/Meds): ED MEDICATIONS Discontinued Medications Generic Name Dose Route Start Last Admin Trade Name Freq PRN Reason Stop Dose Admin Ketorolac Tromethamine 30 mg 04/18/24 13:42 04/18/24 13:58 Ketorolac 30mg/Ml Vial IM 04/18/24 13:43 30 mg ONCE ONE Administration ORDERS Category Date Time Status Femur XR left 2 views [XR femur LT 2V] Stat Exams 04/18/24 13:42 Completed Forearm XR left 2 views [XR forearm LT 2V] Stat Exams 04/18/24 13:42 Completed Hand XR left minimum 3 views [XR hand LT min 3V] Stat Exams 04/18/24 13:42 Completed Hip XR left minimum 2 views [XR hip LT 2-3V w/pelvis] Exams 04/18/24 13:42 Completed Stat Knee XR left 3 views [XR knee LT 3V] Stat Exams 04/18/24 13:42 Completed Wrist XR left minimum 3 views [XR wrist LT min 3V] Stat Exams 04/18/24 13:42 Completed Medical Decision Narrative: In summary, this patient is a 53-year-old female presenting to the Emergency Department for evaluation of left wrist pain, buttock pain, left knee pain after a mechanical ground-level fall. Differential diagnoses considered include but are not limited to fracture, contusion, strain/sprain. Ruling out the most morbid conditions drove assessment. It should be noted patient's history includes CAD, COPD, hypertension, hyperlipidemia which may or may not be at goal therapy. This complicates all aspects of care by increasing patient's risk for morbidity. On exam, the patient is sitting upright in a chair in no acute distress. She is neurovascularly intact distally in all 4 extremities. Workup included x-rays of the left forearm, wrist, hand, left hip/pelvis, left femur, left knee. She was given IM Toradol for symptomatic improvement of pain. I independently interpreted x-rays prior to the radiologist read and noted no acute fracture. Please see their read for final interpretation. On reassessment, patient is resting comfortably. At this time, feel that she is appropriate for discharge. She is given instructions for close follow-up with primary care and strict return precautions. She was discharged with instructions for supportive management. Critical Care Critical Care Time Critical Care Time: No
[2024-04-18] MEDS: KETOROLAC 30MG/ML VIAL 30 MG IM (13:58)
[2024-04-18 15:21] VITALS: BP 141/60; PULSE 80; RESP 18; TEMP 36.6
== END 2024-04-18 15:25 | disposition home or self-care (01) ==
PROVIDERS: Emergency Provider Emergency Medicine; PCP Physician Assistant
DX: S39.92XA Unspecified injury of lower back, initial encounter (principal); M25.562 Pain in left knee; M25.532 Pain in left wrist; M53.3 Sacrococcygeal disorders, not elsewhere classified; W01.0XXA Fall on same level from slipping, tripping and stumbling without subsequent striking against object, initial encounter; Y93.89 Activity, other specified; Y92.008 Other place in unspecified non-institutional (private) residence as the place of occurrence of the external cause
CPT/HCPCS: 73090; 73110; 73130; 73502; 73552; 73562; 96372; 99283; J1885

== ENCOUNTER 2024-04-25 11:45 | Outpatient (CLI) | payer MEDICAID, SELFPAY ==
--- NOTE | 2024-04-25 | CA_ITS ---
APPROVED REPORT Exam: Pharmacologic Technologist: Monica Riley Ht: 5 ft 4 in Wt: 202 lbs BSA: 1.96 m2 HR: 53 bpm BP: 180/86 mmHg Stress Test Details Test: Lexiscan HR Resting HR: 53 bpm Max Heart Rate (APMHR): 167.448745 bpm Max HR Achieved: 78 bpm Target HR (85% APMHR): 141.568388 bpm % of APMHR: 46.71 Recovery HR: 74 bpm BP Resting BP: 180.0/86.0 mmHg Max BP: 182.0/94.0 mmHg Recovery BP: 166.0/93.0 mmHg ECG Stress ECG Conclusion Symptoms: None Arrhythmias/Ectopy: None ST-T Changes: None Electronically signed by : Meghan Smith MD 04/26/2024 11:46:34
--- NOTE | 2024-04-25 11:46 | NM_ITS ---
APPROVED REPORT Exam: Nuclear Stress Test Indication: cad, 1 stent, htn, hyperlipidemia, tob use, fm hx, angina, sob, fatigue Patient Location: Outpatient Stress Tech: Monica Riley ID Tech:Amanda Kc, ARRT, RT (R)(N) Ht: 5 ft 4 in Wt: 200 lbs Bra Size: b HR: 53 bpm BP: 180/86 mmHg BSA: 1.96 m2 TID: 1.16 BMI: 34.3 History: cad, 1 stent, htn, hyperlipidemia, tob use, fm hx, angina, sob, fatigue Procedure: Patient received 0.4 mg of intravenous Lexiscan, resting heart rate 53 bpm, resting blood pressure 180/86 mmHg, with Lexiscan maximum heart rate achieved was 87 bpm which is % of the maximum predicted heart rate and blood pressure was 170/86 mmHg. With Lexiscan, patient denied any complaint of chest pain. Cardiac Stress and Resting SPECT Images: Cardiac Stress and Resting SPECT images were obtained using technetium 99m Myoview 32.0 mCi stress and 10.77 mCi at rest. Resting and stress imaging in supine and prone positions demonstrate medium sized, moderate, partially reversible perfusion defect in the basal to mid anterior and anteroseptal LV greco. Gated imaging demonstrates normal global and regional LV systolic function. LVEF is located at 59%. Conclusion: Medium sized, moderate, partially reversible perfusion defect in the basal to mid anterior and anteroseptal LV greco. Findings are suggestive of partial reversible ischemia. Gated imaging demonstrates normal global and regional LV systolic function. LVEF is located at 59%. Electronically signed by : Meghan Smith MD 04/26/2024 11:48:26
[2024-04-25] MEDS: SODIUM CHLORIDE 0.9% 10ML SYR (RAD ONLY) 10 ML IV ×2 (13:30)
[2024-04-25] MEDS: ISOTOPE MYOVIEW (PER STUDY) 1 DOSE IV (13:30)
[2024-04-25] MEDS: REGADENOSON 0.4MG/5ML SYRINGE 0.4 MG IV (13:31)
== END 2024-04-25 23:59 | disposition home or self-care (01) ==
LOC: RAD 11:45
PROVIDERS: PCP Physician Assistant; Visit Provider Physician Assistant
DX: I25.118 Atherosclerotic heart disease of native coronary artery with other forms of angina pectoris (principal); R07.9 Chest pain, unspecified; R06.00 Dyspnea, unspecified
CPT/HCPCS: 78452; 93017; 93018; A9502; J2785

== ENCOUNTER 2024-06-07 18:06 | Emergency (ER) | payer MEDICAID, SELFPAY ==
[2024-06-07 18:27] VITALS: BP 119/72; PULSE 95; RESP 20; TEMP 36.9; O2SAT 96; BMI 30.9
--- NOTE | 2024-06-07 18:50 | ED_ITS ---
Discharge Plan Disposition Patient Disposition: Home, Self-Care Condition: Good Prescriptions Prescriptions: New benzonatate 100 mg capsule 100 mg PO TIDP PRN (Reason: Cough) Qty: 30 0RF methylprednisolone 4 mg Tablets,Dose Pack 4 mg PO DIRECTED 6 Days Qty: 21 0RF Rx Instructions: Take 1 pack as directed for 6 days amoxicillin-pot clavulanate 875-125 mg Tablet 1 tab PO Q12H Qty: 20 0RF No Action albuterol sulfate 90 mcg/actuation HFA aerosol inhaler 2 puff INHALATION Q6H PRN (Reason: shortness of breath or wheezing) Qty: 8.5 12RF nicotine (polacrilex) 2 mg mini lozenge 2 mg buccal Q4H PRN (Reason: nicotine cravings) Qty: 81 0RF nitroglycerin 0.4 mg tablet, sublingual 0.4 mg sublingual Q5M PRN (Reason: chest pain) Qty: 25 0RF Rx Instructions: do not exceed 3 doses per episode acyclovir 800 mg tablet See Rx Instructions .ROUTE .COMPLEX Qty: 60 10RF Dose Instruction: TAKE 1 TABLET BY MOUTH TWICE DAILY Rx Instructions: TAKE 1 TABLET BY MOUTH TWICE DAILY aspirin 81 mg tablet,delayed release (DR/EC) 81 mg PO DAILY Qty: 90 3RF atorvastatin 40 mg tablet See Rx Instructions .ROUTE .COMPLEX Qty: 90 3RF Dose Instruction: TAKE 1 TABLET (40MG) BY MOUTH DAILY Rx Instructions: TAKE 1 TABLET (40MG) BY MOUTH DAILY citalopram 40 mg tablet See Rx Instructions .ROUTE .COMPLEX Qty: 90 3RF Dose Instruction: TAKE 1 TABLET (40MG) BY MOUTH DAILY Rx Instructions: TAKE 1 TABLET (40MG) BY MOUTH DAILY clopidogrel 75 mg tablet See Rx Instructions .ROUTE .COMPLEX Qty: 90 3RF Dose Instruction: TAKE 1 TABLET (75MG) BY MOUTH DAILY Rx Instructions: TAKE 1 TABLET (75MG) BY MOUTH DAILY ergocalciferol (vitamin D2) [Vitamin D2] 1,250 mcg (50,000 unit) capsule See Rx Instructions .ROUTE .COMPLEX Qty: 14 3RF Dose Instruction: TAKE 1 CAPSULE BY MOUTH ONCE WEEKLY Rx Instructions: TAKE 1 CAPSULE BY MOUTH ONCE WEEKLY famotidine 40 mg tablet See Rx Instructions .ROUTE .COMPLEX Qty: 90 3RF Dose Instruction: TAKE 1 TABLET (40MG) BY MOUTH DAILY Rx Instructions: TAKE 1 TABLET (40MG) BY MOUTH DAILY fluticasone propionate 50 mcg/actuation spray,suspension See Rx Instructions .ROUTE .COMPLEX Qty: 16 10RF Dose Instruction: INSTILL ONE (1) SPRAY IN EACH NOSTRIL DAILY Rx Instructions: INSTILL ONE (1) SPRAY IN EACH NOSTRIL DAILY azelastine 205.5 mcg (0.15 %) spray,non-aerosol 2 spray intranasal HS 90 Days Qty: 30 3RF Rx Instructions: administer into each nostril losartan 25 mg tablet 25 mg PO DAILY Qty: 90 3RF montelukast 10 mg tablet See Rx Instructions .ROUTE .COMPLEX Qty: 90 3RF Dose Instruction: TAKE 1 TABLET (10MG) BY MOUTH DAILY Rx Instructions: TAKE 1 TABLET (10MG) BY MOUTH DAILY omeprazole 40 mg capsule,delayed release(DR/EC) 40 mg PO DAILY Qty: 90 3RF oxybutynin chloride 5 mg tablet See Rx Instructions .ROUTE .COMPLEX Qty: 180 3RF Dose Instruction: TAKE ONE (1) TABLET BY MOUTH TWICE DAILY FOR BLADDER Rx Instructions: TAKE ONE (1) TABLET BY MOUTH TWICE DAILY FOR BLADDER sennosides [senna] 8.6 mg tablet 8.6 mg PO DAILY Qty: 90 3RF quetiapine 300 mg tablet See Rx Instructions .ROUTE .COMPLEX Qty: 30 0RF Dose Instruction: TAKE 1 TABLET (300MG) BY MOUTH AT BEDTIME Rx Instructions: TAKE 1 TABLET (300MG) BY MOUTH AT BEDTIME trazodone 150 mg tablet See Rx Instructions .ROUTE .COMPLEX Qty: 30 0RF Dose Instruction: TAKE 1 TABLET (150MG) BY MOUTH EVERY NIGHT AT BEDTIME Rx Instructions: TAKE 1 TABLET (150MG) BY MOUTH EVERY NIGHT AT BEDTIME ranolazine 500 mg tablet extended release 12 hr 500 mg PO BID Qty: 60 5RF Anoro Ellipta 62.5-25 mcg/actuation blister with device See Rx Instructions .ROUTE .COMPLEX Qty: 180 0RF Dose Instruction: Inhale 1 puff by mouth once daily Rx Instructions: Inhale 1 puff by mouth once daily Referrals Follow up/Referrals: Keyana Lakhani PA [Primary Care Provider] - See instructions Activity Restrictions/Add. Instructions Additional Instructions/Restrictions: Drink plenty of fluids. Take tylenol or ibuprofen for pain or fever. Take the medications as directed. Follow up with your regular doctor. GO TO THE ER FOR ANY WORSENING SYMPTOMS Don't start the oral steroids (medrol dose pack) until tomorrow since you had the shot here Clinical Impressions Clinical Impression: Otitis media, Sinusitis Instructions Patient Instructions: Middle Ear Infection, DI for Sinusitis, Ceftriaxone Injection, Methylprednisolone Injection, Dexamethasone Injection Print Language Print Language: Belarusian Discharge ED Provider: Stewart Drummond [facility] HPI General Stated complaint: bernadette, ear ache Mode of Arrival: Ambulatory Source of Information: Patient Time Seen by Provider: 06/07/24 18:49 Description of Symptoms (Recalled from Triage Doc. by RN): DRAINAGE, COUGH , EAR ACHE HEENT Symptoms (Recalled from RN notes): Yes Resp Symptoms (Recalled from RN notes): Yes Skin Symptoms (Recalled from RN notes): No MS Symptoms (Recalled from RN notes): No Functional Status (Recalled from RN notes): WNL History of Present Illness Provider Complaint: She states that for the past 2 days she has had bilateral ear pain, worsening sinus congestion and a nonproductive cough. Related Data Previous Rx's ?Medication ?Instructions ?Recorded albuterol sulfate 90 mcg/actuation 2 puff inhalation Q6H PRN 09/22/22 aerosol inhaler shortness of breath or wheezing #8.5 grams acyclovir 800 mg tablet See Rx Instructions .Route 12/17/23 .COMPLEX #60 tabs aspirin 81 mg tablet,delayed 81 mg PO DAILY heart health #90 12/17/23 release tabs atorvastatin 40 mg tablet See Rx Instructions .Route 12/17/23 .COMPLEX #90 tabs azelastine 205.5 mcg (0.15 %) 2 spray intranasal HS 90 days #30 12/17/23 nasal spray mL citalopram 40 mg tablet See Rx Instructions .Route 12/17/23 .COMPLEX #90 tabs clopidogrel 75 mg tablet See Rx Instructions .Route 12/17/23 .COMPLEX #90 tabs ergocalciferol (vitamin D2) 1,250 See Rx Instructions .Route 12/17/23 mcg (50,000 unit) capsule (Vitamin .COMPLEX #14 caps D2) famotidine 40 mg tablet See Rx Instructions .Route 12/17/23 .COMPLEX #90 tabs fluticasone propionate 50 See Rx Instructions .Route 12/17/23 mcg/actuation nasal .COMPLEX #16 grams spray,suspension losartan 25 mg tablet 25 mg PO DAILY High blood pressure 12/17/23 #90 tabs montelukast 10 mg tablet See Rx Instructions .Route 12/17/23 .COMPLEX #90 tabs omeprazole 40 mg capsule,delayed 40 mg PO DAILY GERD #90 caps 12/17/23 release oxybutynin chloride 5 mg tablet See Rx Instructions .Route 12/17/23 .COMPLEX #180 tabs quetiapine 300 mg tablet See Rx Instructions .Route 12/17/23 .COMPLEX #30 tabs sennosides 8.6 mg tablet (senna) 8.6 mg PO DAILY #90 tabs 12/17/23 trazodone 150 mg tablet See Rx Instructions .Route 12/17/23 .COMPLEX #30 tabs umeclidinium 62.5 mcg-vilanterol See Rx Instructions .Route 03/11/24 25 mcg/actuation powdr for .COMPLEX #180 ea inhalation (Anoro Ellipta) nicotine (polacrilex) 2 mg buccal 2 mg buccal Q4H PRN nicotine 04/05/24 mini lozenge cravings #81 ea nitroglycerin 0.4 mg sublingual 0.4 mg sublingual Q5M PRN chest 04/06/24 tablet pain #25 tabs ranolazine 500 mg tablet,extended 500 mg PO BID #60 tabs 05/02/24 release,12 hr amoxicillin 875 mg-potassium 1 tab PO Q12H #20 tabs 06/07/24 clavulanate 125 mg tablet benzonatate 100 mg capsule 100 mg PO TIDP PRN Cough #30 caps 06/07/24 methylprednisolone 4 mg tablets in 4 mg PO DIRECTED 6 days #21 tabs 06/07/24 a dose pack Allergies Allergy/AdvReac Type Severity Reaction Status Date / Time albuterol Allergy Intermediate Verified 05/02/24 13:45 hydroxyzine (From Vistaril) Allergy Intermediate JITTERY Verified 05/02/24 13:45 Worker's Comp Is this a Worker's Comp case?: No [facility] Disclaimer: The information contained in this section may have been updated after the patient was seen, as this information can be updated by other users. Medical History Dyspnea Chest pain Chronic cough Nodule of left lung COPD mixed type Encounter for screening for malignant neoplasm of lung in current smoker with 30 pack year history or greater Smoking greater than 30 pack years Allergic rhinitis History of asthma Chronic bronchitis Pulmonary emphysema Dyspnea on exertion Chronic cough Anxiety Depression Osteoarthritis History of gastroesophageal reflux (GERD) Appendicitis Deviated septum Allergies History of primary transitional cell carcinoma of right kidney Cancer of kidney Dizziness Encounter for pre-operative cardiovascular clearance CAD (coronary artery disease) Allergic rhinitis Seasonal affective disorder Ear pain Fibromyalgia Gastroesophageal reflux disease Hyperlipidemia Hypertensive disorder Persistent cough for 3 weeks or longer Surgical History History of nasal septoplasty Hx of heart artery stent History of bilateral tubal ligation History of hysterectomy History of appendectomy Stented coronary artery Family History Other Family history of myocardial infarction Pulmonary emphysema Social History Smoking Status: Former smoker tobacco type: cigarettes packs per day: 1 smoking status stop date: 08/13/23 alcohol intake: current alcohol intake frequency: holidays/special occasions only substance use type: denies use current occupational status: employed Travel in the last 8 weeks: None household members: spouse housing: house lives independently: No marital status: caffeine: No Have you lived/traveled outside [place] in past 30 days?: No Contact w/someone who lives/traveled outside [place] past 30 days?: No Exposure to someone with infectious disease in past 14 days?: No Do you have a fever (greater than 100.4 F or 38 C)?: No Have you tested positive for COVID-19: No Exposed to someone with COVID-19 in past 14 days?: No Do you have a sore throat?: No Do you have a cough?: No Do you have any weakness?: No Do you have any diarrhea?: No Are you experiencing any unusual bleeding?: No Do you have any muscle aches/pain?: No Do you have any abdominal pain?: No Are you experiencing loss of taste or smell?: No ROS Obtained: Yes All systems reviewed & no additional complaints except as documented Constitutional Constitutional: Reports poor appetite Eyes Eyes: Reports system reviewed and no additional complaints, except as documented ENT Ears, Nose, Mouth, and Throat: Reports as per HPI Cardiovascular Cardiovascular: Reports system reviewed and no additional complaints, except as documented and Denies chest pain Respiratory Respiratory: Denies shortness of breath, Denies chest congestion, Reports cough, Denies stridor and Denies wheezing Gastrointestinal Gastrointestingal: Reports system reviewed and no additional complaints, except as documented; Denies abdominal pain, diarrhea or vomiting Musculoskeletal Musculoskeletal: Reports system reviewed and no additional complaints, except as documented and Denies arthralgias Integumentary/Breasts Skin/Breast: Reports system reviewed and no additional complaints, except as documented and Denies rash Neurologic Neurologic: Denies paresthesias Allergic/Immunologic Allergic/Immunologic: Denies wheezing Physical Exam General General appearance: alert and in no apparent distress Head Head exam: atraumatic, normocephalic and normal inspection Eye Eye exam: Present normal appearance, PERRL and EOMI ENT ENT exam: Present mucous membranes moist and normal external ear exam Expanded ENT Exam TM/Canal exam: Bilateral TM: erythema and bulging Nose exam: Absent sinus tenderness Mouth exam: Present normal external inspection; Absent drooling Teeth exam: Present normal inspection Throat exam: Present tonsillar erythema, tonsillomegaly and tonsillar exudate Neck Neck exam: Present normal inspection, full ROM and trachea midline; Absent tenderness, meningismus or lymphadenopathy Chest Chest inspection: Present normal inspection and symmetric chest wall rise; Absent tenderness Respiratory Respiratory exam: Present normal lung sounds bilaterally; Absent respiratory distress, wheezes, stridor or accessory muscle use Cardiovascular Cardiovascular exam: Present regular rate and normal rhythm; Absent systolic murmur or diastolic murmur Abdominal Exam Abdominal exam: Present soft and normal bowel sounds; Absent distention, tenderness, guarding, rebound or rigidity Extremities Exam Extremities exam: Present normal inspection and normal capillary refill; Absent calf tenderness Back Exam Back exam: Present normal inspection and full ROM; Absent tenderness, CVA tenderness (R) or CVA tenderness (L) Neurological Exam Neurological exam: Present alert, oriented X3 and CN II-XII intact Psychiatric Psychiatric exam: Present normal affect and normal mood Skin Skin exam: Present warm, dry, intact and normal color Medical Decision Making Medical Records Medical records reviewed: No I reviewed the patient's medical records. Screening: Per USPSTF and CDC recommendations, given the prevalence of disease in our region, it is our hospital?s policy to screen for HIV and viral Hepatitis for all patients aged 18 and over and those with ongoing risk factors. Jonathan Inquiry Pt receiving controlled substance: No Vital Signs: 06/07/24 18:27 Temperature 98.5 F Temperature Source Oral Pulse Rate [Left Radial] 95 H Respiratory Rate 20 Blood Pressure [Left Arm] 119/72 Blood Pressure Mean [Left Arm] 87 02 Sat by Pulse Oximetry 96 Lab Data Lab results reviewed: Yes I reviewed the patient's lab results.
[2024-06-07] MEDS: cefTRIAXone 1GM VIAL 1 GM IM (19:05)
[2024-06-07] MEDS: LIDOCAINE 1% 5ML PF VIAL IM (19:05)
[2024-06-07] MEDS: DEXAMETHASONE 4MG/ML 1ML VIAL 8 MG IM (19:05)
[2024-06-07 19:37] VITALS: BP 119/72; PULSE 95; RESP 20; TEMP 36.9
== END 2024-06-07 19:37 | disposition home or self-care (01) ==
PROVIDERS: Emergency Provider Nurse Practitioner Family; PCP Physician Assistant
DX: H66.90 Otitis media, unspecified, unspecified ear (principal); J01.90 Acute sinusitis, unspecified; H92.09 Otalgia, unspecified ear; R09.81 Nasal congestion; R05.9 Cough, unspecified; R63.8 Other symptoms and signs concerning food and fluid intake
CPT/HCPCS: 99212; G0381; J0696; J1100

== ENCOUNTER 2024-08-29 11:00 | Outpatient (RCR) | payer MEDICAID, SELFPAY ==
--- NOTE | 2024-08-17 12:10 | HMH.PTOPEV ---
PT Outpatient Evaluation Rehab PT Outpatient Evaluation Start: 08/17/24 11:00 Freq: Status: Active Protocol: Document 08/17/24 11:00 HOWIE (Rec: 08/17/24 12:10 HOWIE [id number]) E-signed By Porsche Nagel, PT Outpatient Therapy Subjective History Subjective History Pt is a 54 y/o female who reports chronic L knee pain for years and years. 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 Pt reports most recent radiograph of the L knee in April of last year without significant findings. Pt reports she had a steroid injection 1 month ago which has improved her symptoms. Pt reports history of multiple steroid injections in bilateral knees. Pt reports continued L knee pain all over and states her knee often feels like it will give out on her and often feels like it locks. Pt reports swelling of the knee that is worse with increased activity. Pt reports pain is aggravated by stair climbing (up>down), twisting/pivoting on the knee, prolonged standing, and prolonged walking. Pt reports prior to the injection she was wearing a knee brace for stability and pain control, states she hasn't felt like she needed it since having the injection. Work: [employer] Medical History: Allergies with inhaler, GERD, Hypertension, Hyperlipidemia, SOA with exertion per pt Gait: pigeon toed gait L>R Special tests: clunk noted with Valgus stress test R knee edema: 40cm at tibiofemoral jt line New diagnosis of cancer in past 12 No months? Chief Complaint Pain,Stiff,Swelling,Catches/ Locks,Gives out/Unstable Symptom Type Sharp Symptoms Relieved By Rest/Positioning,Ice Symptoms Aggravated By Standing,Physical Activity, Twisting,Walking Current Functional Limitations Standing,Squatting,Recreation Activity,Walking,Stairs Symptom Description Intermittent Level of pain today (0-10) 1 Pain scale - at its best (0-10) 0 Pain scale - at its worst (0-10) 10 Hip/Knee Eval Palpation Tenderness left Knee Palpation Overall Comment med>lateral femoral jt line, MCL MMT Hip Abduction Strength Grade 4- Good- Hip Adduction Strength Grade 4- Good- Hip Extension Strength Grade 4- Good- Knee Extension Strength Grade 4 Good Knee Flexion Strength Grade 4 Good ROM Knee Extension Active Range of Motion ( 5 degrees) Knee Flexion Active Range of Motion ( 125 degrees) Effusion joint effusion knee exam standard left Mid - Patellar Circumerential Measure ( 40.5 cm) Special Tests Knee Anterior Drawer Test Negative Left,Negative Right Knee Posterior Sag ([place] Drawer) Test Negative Left,Negative Right Knee Valgus Stress Test Negative Right,Positive Left Knee Varus Stress Test Positive Left Knee Keila Test Negative Left,Negative Right Lower Extremity Functional Index Activities Today, do you or would you have any difficulty at all with: a.Any of your usual work, housework or Moderate difficulty school activities b. Your usual hobbies, recreational or A little bit of difficulty sporting activities c. Getting into or out of the bath A little bit of difficulty d. Walking between rooms A little bit of difficulty e. Putting on your shoes or socks No difficulty f. Squatting Extreme difficulty or unable to perform activity g. Lifting an object, like a bag of A little bit of difficulty groceries from the floor h. Performing light activities around No difficulty your home i. Performing heavy activities around Quite a bit of difficulty your home j. Getting into or out of a car A little bit of difficulty k. Walking 2 blocks Moderate difficulty l. Walking a mile Extreme difficulty or unable to perform activity m. Going up or down 10 stairs (about 1 Quite a bit of difficulty flight of stairs) n. Standing for 1 hour A little bit of difficulty o. Sitting for 1 hour A little bit of difficulty p. Running on even ground Extreme difficulty or unable to perform activity q. Running on uneven ground Extreme difficulty or unable to perform activity r. Making sharp turns while running fast Extreme difficulty or unable to perform activity s. Hopping Extreme difficulty or unable to perform activity t. Rolling over in bed A little bit of difficulty LEFI Score Lower Extremity Functional Index Score 38 Outpatient Therapy Assessment Impairments Problems/Impairmments Palpation Tenderness,Impaired Range of Motion,Impaired Strength,Impaired Gait Pattern ,Impaired Walking,Impaired Standing,Impaired Stair Climbing,Impaired Incline Stepping,Impaired Stepping on Uneven Surface,Impaired Squatting,Impaired Work Activities,Increased Edema, Subjective C/O Pain,Impaired Self Care/Self Management Prognosis Rehab Potential Good Clinical Impression Consistent with Diagnosis Yes Short Term Goals Number of Weeks 3 Increase Range of Motion Yes: Improve L knee AROM extension to 0 Decrease Subjective C/O Pain Yes: Improve pain at worst to 8/10 to improve overall QOL Improve Self Care/Self Management Yes Patient to be Ind w/ HEP Yes Custodial Goals Number of Weeks 6 Increase Strength Yes: Improve LLE MMT to 4-4+/5 grossly to assist with function Improve Ability to Climb Stairs Yes: 1 flight with pain 6/10 or less Improve Tolerance to Work Activities Yes: report ability to work a full shift with pain 6/10 or less Improve LEFI Score Yes: Improve score to at least 48/80 to improve overall QOL Decrease Edema Yes Decrease Subjective C/O Pain Yes: Improve pain at worst to 6/10 to improve overall QOL Outpatient Therapy Plan of Care Treatment Plan May Include Therapeutic Exercise Including Home Yes Exercise Program Manual Therapy Techniques Yes Neuromuscular Re-education Yes Therapeutic Activities to Return to Yes Previous Functional/Work Level Gait Training Yes ADL/Self Care Education Yes Dry Needling Yes Thermal Modalities Yes Electrical Stimulation Yes Ultrasound/Phonophoresis Yes Iontophoresis Yes Orthotics/Bracing/Splinting Yes Vasopneumatic Compression Pump Yes Massage Yes Eval/Re-Eval Yes Frequency Times per week 2 Duration Number of Weeks 4-6 Addendums This patient is a candidate for social No or vocational rehab? Patient/Guardian verbally acknowledges Yes understanding of treatment program and consents to further treatment? Patient/Guardian verbally acknowledges Yes understanding of diagnosis, prognosis and goals for treatment? Eval Complexity PT Charges 19532 - Low Complexity Shoulder/Elbow Eval Shoulder Objective Measurements Elbow Objective Measurements PHYSICIAN CERTIFICATION: I certify the specified therapy services for Christine Guaman are required, authorized, and reviewed every 30 days.
== END 2024-08-29 23:59 | disposition home or self-care (01) ==
LOC: PT 11:00
PROVIDERS: PCP Physician Assistant; Visit Provider Physician Assistant Surgical
DX: M25.562 Pain in left knee (principal)
CPT/HCPCS: 97110; 97163

== ENCOUNTER 2024-09-16 11:00 | Outpatient (RCR) | payer MEDICAID, SELFPAY ==
--- NOTE | 2024-09-12 12:16 | HMH.RHREAS ---
Rehab Reassessment Rehab OP Re-assessment Start: 09/02/24 10:58 Freq: Status: Active Protocol: Document 09/12/24 12:10 HOWIE (Rec: 09/12/24 12:16 HOWIE [id number]) E-signed By Porsche Nagel PT Lower Extremity Functional Index Activities Today, do you or would you have any difficulty at all with: a.Any of your usual work, housework or A little bit of difficulty school activities b. Your usual hobbies, recreational or A little bit of difficulty sporting activities c. Getting into or out of the bath A little bit of difficulty d. Walking between rooms A little bit of difficulty e. Putting on your shoes or socks No difficulty f. Squatting Moderate difficulty g. Lifting an object, like a bag of A little bit of difficulty groceries from the floor h. Performing light activities around A little bit of difficulty your home i. Performing heavy activities around Extreme difficulty or unable your home to perform activity j. Getting into or out of a car A little bit of difficulty k. Walking 2 blocks Moderate difficulty l. Walking a mile Quite a bit of difficulty m. Going up or down 10 stairs (about 1 Moderate difficulty flight of stairs) n. Standing for 1 hour A little bit of difficulty o. Sitting for 1 hour A little bit of difficulty p. Running on even ground A little bit of difficulty q. Running on uneven ground Quite a bit of difficulty r. Making sharp turns while running fast Quite a bit of difficulty s. Hopping A little bit of difficulty t. Rolling over in bed A little bit of difficulty LEFI Score Lower Extremity Functional Index Score 49 Rehab Re-assessment Subjective Subjective Pt reports she feels 50% improved since starting PT. Pt reports L anterolateral knee pain at worst as 4/10 on VAS. Pt reports pain continues to be aggravated by stair climbing, squatting and walking on uneven ground. Pt reports her L knee still feels unstable at times but is improving overall. Pt reports compliance with HEP. Objective Objective Notes L knee palpation: 1/ TTP of lateral joint line L knee AROM: 0-125 LLE MMT: 4/ grossly Assessment Assessment Notes Pt has attended 5 PT treatment sessions consisting of aerobic exercise, knee ROM, LE stretching/strengthening, and HEP with good tolerance. Pt demonstrated improved subjective report of pain, LEFS score, L knee AROM and strength this date compared to the initial evaluation. Pt continues to report Patient goals met ST/4 Goals Not Met LTG Revised Goals n/a Plan Plan Continue initial POC Frequency of Therapy 2x/week Duration of therapy 2-4 more weeks Time and Billing Re-Eval Time 10 Re-Eval Billing Units 0 Charge for PT reassessment? No Charge for OT reassessment? No PHYSICIAN CERTIFICATION: I certify the specified therapy services for Christine Guaman are required, authorized, and reviewed every 30 days.
== END 2024-09-16 23:59 | disposition home or self-care (01) ==
LOC: PT 11:00
PROVIDERS: PCP Physician Assistant; Visit Provider Physician Assistant Surgical
DX: M25.562 Pain in left knee (principal)
CPT/HCPCS: 97035; 97110

== ENCOUNTER 2024-10-13 09:56 | Outpatient (CLI) | payer MEDICAID, SELFPAY | END 2024-10-13 23:59 | disposition home or self-care (01) | LOC: RT 09:57 | PROVIDERS: PCP Physician Assistant; Visit Provider Internal Medicine Pulmonary Disease | DX: R06.02 Shortness of breath (principal) | CPT/HCPCS: 94060; 94618 ==

== ENCOUNTER 2024-10-18 13:00 | Outpatient (RCR) | payer MEDICAID, SELFPAY ==
--- NOTE | 2024-10-18 14:05 | HMH.RHREAS ---
Rehab Reassessment Rehab OP Re-assessment Start: 09/30/24 13:40 Freq: Status: Active Protocol: Document 10/18/24 13:31 PHORNE (Rec: 10/18/24 14:04 PHORNE [id number]) E-signed By Jerzy Fry PT Lower Extremity Functional Index Activities Today, do you or would you have any difficulty at all with: a.Any of your usual work, housework or A little bit of difficulty school activities b. Your usual hobbies, recreational or A little bit of difficulty sporting activities c. Getting into or out of the bath No difficulty d. Walking between rooms No difficulty e. Putting on your shoes or socks No difficulty f. Squatting Moderate difficulty g. Lifting an object, like a bag of A little bit of difficulty groceries from the floor h. Performing light activities around A little bit of difficulty your home i. Performing heavy activities around Quite a bit of difficulty your home j. Getting into or out of a car A little bit of difficulty k. Walking 2 blocks A little bit of difficulty l. Walking a mile Extreme difficulty or unable to perform activity m. Going up or down 10 stairs (about 1 A little bit of difficulty flight of stairs) n. Standing for 1 hour A little bit of difficulty o. Sitting for 1 hour A little bit of difficulty p. Running on even ground A little bit of difficulty q. Running on uneven ground Quite a bit of difficulty r. Making sharp turns while running fast A little bit of difficulty s. Hopping Extreme difficulty or unable to perform activity t. Rolling over in bed A little bit of difficulty LEFI Score Lower Extremity Functional Index Score 52 Rehab Re-assessment Subjective Subjective Pt reports pain at worst is 3/ 10 in the L knee and she feels she has improved since her initial evaluation. She states , My knee was giving out on me and felt like it was going out of place, but it doesn't feel that way anymore. Objective Objective Notes L knee palpation: 0/4 TTP of medial and lateral joint line L knee AROM: 0-127 LLE MMT: Hip Flex 4+/5, otherwise grossly 5/5. Assessment Progress Assessment Progressing as Expected Assessment Notes Pt has shown significant improvement in AROM, Pain, and strength throughout the l knee and LLE as a whole. She is able to tolerate stairs with less pain and difficulty at this time and no longer feels unstable in her L knee when ambulating. Pt is appropriate to discharge from outpatient therapy services at this time. Patient goals met ST/4 LT/6 Plan Plan Will d/c pt to independent HEP . All goals met at this time. Frequency of Therapy 0 Duration of therapy 0 Time and Billing Re-Eval Time 11 Re-Eval Billing Units 1 Charge for PT reassessment? Yes PHYSICIAN CERTIFICATION: I certify the specified therapy services for Christine Guaman are required, authorized, and reviewed every 30 days.
== END 2024-10-18 23:59 | disposition home or self-care (01) ==
LOC: PT 13:00
PROVIDERS: PCP Physician Assistant; Visit Provider Physician Assistant Surgical
DX: M25.562 Pain in left knee (principal)
CPT/HCPCS: 97110; 97164

== ENCOUNTER 2025-01-12 16:38 | Emergency (ER) | payer MEDICAID, SELFPAY ==
--- OUTSIDE RECORDS SUMMARY | 2024-11-05 17:30 | XMS_ITS ---
Author Organization [employer] [facility] Address [address] [place] [address] Care Team Providers Care Coding Machine Operator Name Role Phone Migration, Provider Unavailable Unavailable Allergies Allergen (clinical drug ingredient) Drug/Non Drug Allergy documented on EMR Reaction Allergy Type Onset Date Status hydroxyzine Vistaril Unknown Drug Allergy Activ e [facility] Encounter Medications Medication SIG (Take, Route, Frequency, Duration) Notes Start Date End Date Status Methocarbamol 500 MG Tablet 2 tab(s) orally 2 times a day prn pain; Duration: 10 days 02/25/2018 Active Loratadine 10 MG Tablet 1 tab(s) orally once a day; Duration: 30 days Active Metoprolol Succinate ER 25 MG Tablet Extended Release 24 Hour 1 tab(s) orally once a day; Duration: 30 days Active IBU 800 MG Tablet 1 tab(s) orally 3 times a day prn pain; Duration: 30 days 02/25/2018 Active Promethazine-DM 6.25-15 MG/5ML Syrup 5 ml orally every 6 hours; Duration: 5 days 02/25/2018 Active [place] 325 MG-5 MG TABLET 1 TAB(S) ORALLY EVERY 6 HOURS *Please review and pick correct strength[facility]formula [facility]ion [facility]. If intended option is not shown, discontinue and re-order from Quick Search* Active Gabapentin 600 MG Tablet 1 tab(s) orally 3 times a day; Duration: 30 days Active Mucinex 600 MG Tablet Extended Release 12 Hour 1 tab(s) orally every 12 hours; Duration: 5 day(s) Active Doxycycline Hyclate 100 MG Tablet 1 tab(s) orally 2 times a day; Duration: 10 day(s) 02/25/2018 Active Tylenol with Codeine #3 300 MG-30 MG TABLET 1 TAB(S) ORALLY EVERY 6 HOURS *Please review and pick correct strength-formula tion from [employer] options. If intended option is not shown, discontinue and re-order from Quick Search* Not-Taking/ PRN Mirtazapine 30 MG Tablet 1 tab(s) orally once a day (at bedtime); Duration: 30 day(s) Active Escitalopram Oxalate 20 MG Tablet 1 tab(s) orally once a day; Duration: 30 day(s) Active Symbicort 160-4.5 MCG/ACT Aerosol 2 puff(s) inhaled 2 times a day; Duration: 30 day(s) Active Incruse Ellipta 62.5 MCG (0.0625 MG)/INH POWDER DIRECTED INHALED EVERY 24 HOURS; Duration: 30 DAYS *Please review and pick correct strength-formula tion from [employer] options. If intended option is not shown, discontinue and re-order from Quick Search* Active Ventolin HFA 108 (90 Base) MCG/ACT Aerosol Solution 2 puff(s) inhaled 4 times a day; Duration: 30 day(s) Active Lansoprazole 30 MG Capsule Delayed Release 1 cap(s) orally BID; Duration: 30 days Active Singulair 10 MG Tablet 1 tab(s) orally once a day; Duration: 30 day(s) Active Clopidogrel Bisulfate 75 MG Tablet 1 tab(s) orally once a day; Duration: 30 day(s) Active Atorvastatin Calcium 20 MG Tablet 1 tab(s) orally once a day; Duration: 30 day(s) Active Famotidine 20 MG Tablet 1 tab(s) orally once a day; Duration: 30 days Active Fluticasone Propionate 50 MCG/ACT Suspension 1 spray(s) intranasally once a day; Duration: 30 day(s) Active lamoTRIgine 200 MG Tablet 1 tab(s) orally 2 times a day; Duration: 30 days Active SEROquel 400 MG Tablet 1 tab(s) orally qhs; Duration: 30 days Active Cyclobenzaprine HCl 10 MG Tablet 1 tab(s) orally 3 times a day; Duration: 30 days Active Vitamin D (Ergocalciferol) 1.25 MG (87114 UT) Capsule 1 cap(s) orally once a week; Duration: 30 day(s) Active Levalbuterol HCl 1.25 MG/3ML Nebulization Solution 3 mL by nebulizer 3 times a day; Duration: 30 day(s) Active Azelastine HCl 0.05 % Solution 1 gtt in each affected eye 2 times a day; Duration: 30 day(s) Active Encounters Encounter Location Date Provider Diagnosis [address] [id number] 11/05/2024 Provider Migration 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.10 ; Fibromyalgia M79.7 and Acute bronchitis due to Mycoplasma pneumoniae J20.0 Assessments Encounter Date Diagnosis (ICD Code) Assessment Notes Treatment Notes Treatment Clinical Notes Section Notes 11/05/2024 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 (ICD-10 - I25.10) 11/05/2024 Fibromyalgia (ICD-10 - M79.7) 11/05/2024 Acute bronchitis due to Mycoplasma pneumoniae (ICD-10 - J20.0) Plan Of Treatment Medication Medication Name Sig Start Date Stop Date Notes Methocarbamol 500 MG Tablet 2 tab(s) ora lly 2 times a day prn pain; Duration: 10 days 02/25/2018 Loratadine 10 MG Tablet 1 tab(s) orally once a day; Duration: 30 days Metoprolol Succinate ER 25 M G Tablet Extended Release 24 Hour 1 tab(s) orally once a day; Duration: 30 days IBU 800 MG Tablet 1 tab(s) orally 3 ti mes a day prn pain; Duration: 30 days 02/25/2018 Promethazine-DM 6.25-15 MG/5 ML Syrup 5 ml orally every 6 hours; Duration: 5 days 02/25/2018 Doxycycline Hyclate 100 MG Tablet 1 tab( s) orally 2 times a day; Duration: 10 day(s) 02/25/2018 Progress Notes * Christine GUAMAN MDOB: 0 (54 yo F)Acc No.[id number]:11/05/2024 Patient: Christine Mcfarlane Provider: :1970 A ge:54 Y S ex:Female Date:11/05/2024 Address:[address] [place], [place] [id number] Subjective: * Chief Complaints: * [facility] * Medications: T akingAzelastine HCl 0.05 % Solution 1 gtt in each affected eye 2 times a day Levalbuterol HCl 1.25 MG/3ML Nebulization Solution 3 mL by nebulizer 3 times a day Vitamin D (Ergocalciferol) 1.25 MG (37653 UT) Capsule 1 cap(s) orally once a week Cyclobenzaprine HCl 10 MG Tablet 1 tab(s) orally 3 times a day SEROquel 400 MG Tablet 1 tab(s) orally qhs lamoTRIgine 200 MG Tablet 1 tab(s) orally 2 times a day Fluticasone Propionate 50 MCG/ACT Suspension 1 spray(s) intranasally once a day Singulair 10 MG Tablet 1 tab(s) orally once a day Lansoprazole 30 MG Capsule Delayed Release 1 cap(s) orally BID Famotidine 20 MG Tablet 1 tab(s) orally once a day Atorvastatin Calcium 20 MG Tablet 1 tab(s) orally once a day Clopidogrel Bisulfate 75 MG Tablet 1 tab(s) orally once a day Ventolin HFA 108 (90 Base) MCG/ACT Aerosol Solution 2 puff(s) inhaled 4 times a day Incruse Ellipta 62.5 MCG (0.0625 MG)/INH POWDER DIRECTED INHALED EVERY 24 HOURS , Notes to Pharmacist: *Please review and pick correct strength-formulation from [employer] options. If intended option is not shown, discontinue and re-order from Quick Search*Symbicort 160-4.5 MCG/ACT Aerosol 2 puff(s) inhaled 2 times a day Escitalopram Oxalate 20 MG Tablet 1 tab(s) orally once a day Mirtazapine 30 MG Tablet 1 tab(s) orally once a day (at bedtime) Mucinex 600 MG Tablet Extended Release 12 Hour 1 tab(s) orally every 12 hours Gabapentin 600 MG Tablet 1 tab(s) orally 3 times a day [place] 325 MG-5 MG TABLET 1 TAB(S) ORALLY EVERY 6 HOURS , Notes to Pharmacist: *Please review and pick correct strength- formulation from [employer] options. If intended option is not shown, discontinue and re-order from Quick Search*Taking Azelastine HCl 0.05 % Solution 1 gtt in each affected eye 2 times a day Taking Levalbuterol HCl 1.25 MG/3ML Nebulization Solution 3 mL by nebulizer 3 times a day Taking Vitamin D (Ergocalciferol) 1.25 MG (42825 UT) Capsule 1 cap(s) orally once a week Taking Cyclobenzaprine HCl 10 MG Tablet 1 tab(s) orally 3 times a day Taking SEROquel 400 MG Tablet 1 tab(s) orally qhs Taking lamoTRIgine 200 MG Tablet 1 tab(s) orally 2 times a day Taking Fluticasone Propionate 50 MCG/ACT Suspension 1 spray(s) intranasally once a day Taking Singulair 10 MG Tablet 1 tab(s) orally once a day Taking Lansoprazole 30 MG Capsule Delayed Release 1 cap(s) orally BID Taking Famotidine 20 MG Tablet 1 tab(s) orally once a day Taking Atorvastatin Calcium 20 MG Tablet 1 tab(s) orally once a day Taking Clopidogrel Bisulfate 75 MG Tablet 1 tab(s) orally once a day Taking Ventolin HFA 108 (90 Base) MCG/ACT Aerosol Solution 2 puff(s) inhaled 4 times a day Taking Incruse Ellipta 62.5 MCG (0.0625 MG)/INH POWDER DIRECTED INHALED EVERY 24 HOURS , Notes to Pharmacist: *Please review and pick correct strength-formulation from [employer] options. If intended option is not shown, discontinue and re-order from Quick Search*Taking Symbicort 160-4.5 MCG/ACT Aerosol 2 puff(s) inhaled 2 times a day Taking Escitalopram Oxalate 20 MG Tablet 1 tab(s) orally once a day Taking Mirtazapine 30 MG Tablet 1 tab(s) orally once a day (at bedtime) Taking Mucinex 600 MG Tablet Extended Release 12 Hour 1 tab(s) orally every 12 hours Taking Gabapentin 600 MG Tablet 1 tab(s) orally 3 times a day Taking [place] 325 MG-5 MG TABLET 1 TAB(S) ORALLY EVERY 6 HOURS , Notes to Pharmacist: *Please review and pick correct strength-formulation from [employer] options. If intended option is not shown, discontinue and re-order from Quick Search*Not-Taking/PRNTylenol with Codeine #3 300 MG-30 MG TABLET 1 TAB(S) ORALLY EVERY 6 HOURS , Notes to Pharmacist: *Please review and pick correct strength-formulation from [employer] options. If intended option is not shown, discontinue and re-order from Quick Search*Not-Taking/PRN Tylenol with Codeine #3 300 MG-30 MG TABLET 1 TAB(S) ORALLY EVERY 6 HOURS , Notes to Pharmacist: *Please review and pick correct strength-formulation from [employer] options. If intended option is not shown, discontinue and re-order from Quick Search* * Allergies: V istaril Assessment: * Assessment: 1. A therosclerotic heart disease of ne[place] perce coronary artery without angina pectoris - I25.10? 2. F ibromyalgia - M79.7 3 . A cute bronchitis due to Mycoplasma pneumoniae - J20.0 Plan: * Treatment: 2. F ibromyalgia Start IBU Tablet, 800 MG, 1 tab(s), orally, 3 times a day prn pain, 30 days, 90, Refills 1; S tart Methocarbamol Tablet, 500 MG, 2 tab(s), orally, 2 times a day prn pain, 10 days, 40, Refills 2.? 3. A cute bronchitis due to Mycoplasma pneumoniae Start Doxycycline Hyclate Tablet, 100 MG, 1 tab(s), orally, 2 times a day, 10 day(s), 20, Refills 0; S tart Promethazine-DM Syrup, 6.25-15 MG/5ML, 5 ml, orally, every 6 hours, 5 days, 100 ml, Refills 0. 4. O thers Continue Loratadine Tablet, 10 MG, 1 tab(s), orally, once a day, 30 days, 30 Tablet, Refills 6.? * Electronic signature of Prov ider Migration on 01/12/2025 at 04:45 PM EDT Sign off status: Pending * Provider: Date: 0 11/05/2024 Generated for Flores louie/Hussain/Nettiesmitting on: 0 01/12/2025 04:45 PM EDT
[2025-01-12] VITALS (7 sets, daily range): BP systolic 135–185; BP diastolic 87–110; PULSE 50–87; RESP 16–22; TEMP 36.9; O2SAT 95–99; BMI 31.7
--- OUTSIDE RECORDS SUMMARY | 2025-01-12 16:44 | XMS_ITS | Clinical Summary ---
Author Organization Healthcare Address [address] [place] [address] Care Team Providers Care Hat Marker Name Role Phone Miladis Wilkinson DOMI Primary Care Provider [phone] Allergies Active Allergy Reactions Criticality Noted Date Comments Albuterol Anxiety High 12/17/2023 Hydroxyzine Hives High 12/17/2023 Medications Ventolin HFA 108 (90 Base) MCG/ACT inhaler 7 Active acyclovir (Zovirax) 800 MG tablet Take 1 tablet (800 mg) by mouth 2 (two) times a day. Active aspirin 81 MG EC tablet 1 tablet (81 mg). 4 Active atorvastatin (Lipitor) 40 MG tablet Take 1 tablet (40 mg) by mouth 1 (one) time each day. Active Azelastine HCl 0.15 % solution 2 sprays. 4 Active losartan (Cozaar) 25 MG tablet Take 1 tablet (25 mg) by mouth 1 (one) time each day. Active montelukast (Singulair) 10 MG tablet .COMPLEX 4 Active omeprazole (PriLOSEC) [address] capsule Take 1 capsule (40 mg) by mouth 1 (one) time each day. Active oxybutynin (Ditropan) 5 MG tablet .COMPLEX 4 Active Anoro Ellipta 62.5-25 MCG/ACT aerosol powder aerosol powder Inhale 1 Inhalation. 4 Active sennosides (Senokot) 4.3 mg tablet (HALF TABLET) 2 split tablet (1 tablet). 4 Active QUEtiapine (SEROquel) 300 MG tablet .COMPLEX 4 Active traZODone (Desyrel) 150 MG tablet Take 1 tablet (150 mg) by mouth every night. Active nitroglycerin (Nitrostat) 0.4 MG SL tablet DISSOLVE ONE TABLET UNDER THE TONGUE EVERY 5 MINUTES NEEDED FOR CHEST PAIN. DO NOT EXCEED A TOTAL OF 3 DOSES IN 15 MINUTES 4 Active Umeclidinium [place] (Incruse Ellipta) 62.5 MCG/ACT aerosol powder 8 Active senna (Senokot) 8.6 MG tablet 4 Active loratadine (Claritin) 10 MG tablet 7 Active levalbuterol (Xopenex) 1.25 MG/3ML nebulizer solution every 8 (eight) hours. Active fluticasone (Flonase) 50 MCG/ACT nasal spray Administer 1 spray into each nostril. Active famotidine (Pepcid) 40 MG tablet Take 1 tablet (40 mg) by mouth 1 (one) time each day. Active escitalopram (Lexapro) 20 MG tablet 7 Active ergocalciferol 1.25 MG (27539 UT) capsule Take 1 capsule (50,000 Units) by mouth 1 (one) time per week. 4 Active clopidogrel (Plavix) 75 MG tablet .COMPLEX 7 Active citalopram (CeleXA) 40 MG tablet .COMPLEX 4 Active cetirizine (ZyrTEC) 10 MG tablet Take 1 tablet (10 mg) by mouth 1 (one) time each day. 4 Active Family History Medical History Relation Name Comments Bipolar depression Mother Heart attack Mother Relation Name Status Comments Mother Social History Tobacco Use Types Packs/Day Years Used Date Smoking Tobacco: Former Smokeless Tobacco: Never Tobacco Cessation:Counseling Given: Not Answered Alcohol Use Standard Drinks/Week Comments Not Currently 0 (1 standard drink = 0.6 oz pure alcohol) Alcoholic Drinks/day: Minimum alcohol consumption PHQ-2 Answer Date Recorded Patient Health Questionnaire-2 Score 0 04/26/2024 Comments Unknown Sex and Gender Information Value Date Recorded Sex Assigned at Not on file Legal Sex Female 8:36 PM EDT Gender Identity Not on file Sexual Orientation Not on file Last Filed Vital Signs Vital Sign Reading Time Taken Comments Blood Pressure 143/89 04/26/2024 10:39 AM EST Pulse 72 04/26/2024 10:39 AM EST Temperature 36.5 C (97.7 F) 04/26/2024 10:39 AM EST Respiratory Rate 16 04/26/2024 10:39 AM EST Oxygen Saturation 97% 04/26/2024 10:39 AM EST Inhaled Oxygen Concentration - - Weight 93.1 kg (205 lb 4 oz) 04/26/2024 10:39 AM EST Height 162.6 cm (5' 4 ) 04/26/2024 10:39 AM EST Body Mass Index 35.23 04/26/2024 10:39 AM EST Plan of Treatment Health Maintenance Due Date Last Done Comments [facility]-HIV Screening 1970 [facility]-Infant/Child/Adol SDOH Screenings 1970 [facility]- SDOH Screenings 1988 [facility]-Adult SDOH Screenings 1988 [facility]-Hepatitis B Vaccines (1 of 3 - 19+ 3-dose series) 1989 CT Colonography 2015 Colonoscopy 2015 FIT-DNA 2015 FIT 2015 FOBT 2015 Sigmoidoscopy 2015 [facility]-Colorectal Cancer Screening 2015 [facility]-Breast Cancer Screening 2020 [facility]-Pneumococcal Vaccine: 50 + Years (2 of 2 - PCV) 2020 08/17/2018 [facility]-Zoster Vaccines (1 of 2) 2020 [id number] Vaccine (4 - season) 2024 06/04/2021, 11/15/2020, 10/15/2020 [facility]-Influenza Vaccine (#1) 01/30/202506/04, 03/10/2019, 05/14/2016 [facility]-Depression Screening 04/26/2025 04/26/2024 [facility]-DTaP,Tdap,and Td Vaccine s (4 - Td or Tdap) 09/23/2032 09/23/2022, 01/21/2019, 07/24/2015 [facility]-Hepatitis A Vaccines Aged Out 03/10/2019 No longer eligible based on patient's age to complete this topic [facility]-Hepatitis C Screening Completed 04/26/2024 [facility]-Obesity Intervention Completed 04/26/2024 HPV Vaccines Aged Out No longer eligi ble based on patient's age to complete this topic [facility]-HIB Vaccines Aged Out No longer e ligible based on patient's age to complete this topic [facility]-IPV Vaccines Aged Out No longer e ligible based on patient's age to complete this topic [facility]-Rotavirus Vaccines Aged Out No lo nger eligible based on patient's age to complete this topic Procedures Procedure Name Priority Date/Time Associated Diagnosis Comments ACUTE HEPATITIS PANEL Routine 04/26/2024 12:04 PM EST Chronic pain of both knees from Last 3 Months or Most Recently Relevant to Health Maintenance Results * Acute Hepatitis Panel (04/26/2024 12:04 PM EST) Hepatitis B Surf Antigen Negative Negative 04/26/2024 3:24 PM EST [facility] Hepatitis C Antibody Negative Negative 04/26/2024 3:24 PM EST [facility] Hepatitis A Antibody IgM Negative Negative 04/26/2024 3:24 PM EST [facility] Hepatitis B Core Antibody IgM Negative Negative 04/26/2024 3:24 PM EST [facility] Blood Venous blood specimen / Unknown Venipuncture / Unknown 04/26/2024 12:04 PM EST 04/26/2024 12:05 PM EST us Tiff Larson APRN LAB BLOOD ORDERABLES Final Result [facility] [address] [place] [address] from Last 3 Months or Most Recently Relevant to Health Maintenance Insurance [facility] MEDICAID Care Teams Hat Marker Relationship Specialty Start Date End Date Miladis Wilkinson APRN [address] [place] [id number] PCP - General 10/12/20
--- OUTSIDE RECORDS SUMMARY | 2025-01-12 16:44 | XMS_ITS | Patient Health Record ---
Author Organization [facility] Address [address] [place] [address] Care Team Providers Care Social Work Program Coordinator Name Role Phone Migration, Provider Unavailable Unavailable Allergies Allergen (clinical drug ingredient) Drug/Non Drug Allergy documented on EMR Reaction Allergy Type Onset Date Status hydroxyzine Vistaril Unknown Drug Allergy Activ e Reason For Referral No Information Medications Medication SIG (Take, Route, Frequency, Duration) Notes Start Date End Date Status Cyclobenzaprine HCl 10 MG Tablet 1 tab(s) orally 3 times a day; Duration: 30 days Active Vitamin D (Ergocalciferol) 1.25 MG (78186 UT) Capsule 1 cap(s) orally once a week; Duration: 30 day(s) Active IBU 800 MG Tablet 1 tab(s) orally 3 times a day prn pain; Duration: 30 days 02/25/2018 Active Levalbuterol HCl 1.25 MG/3ML Nebulization Solution 3 mL by nebulizer 3 times a day; Duration: 30 day(s) Active Promethazine-DM 6.25-15 MG/5ML Syrup 5 ml orally every 6 hours; Duration: 5 days 02/25/2018 Active Azelastine HCl 0.05 % Solution 1 gtt in each affected eye 2 times a day; Duration: 30 day(s) Active Doxycycline Hyclate 100 MG Tablet 1 tab(s) orally 2 times a day; Duration: 10 day(s) 02/25/2018 Active Tylenol with Codeine #3 300 MG-30 MG TABLET 1 TAB(S) ORALLY EVERY 6 HOURS *Please review and pick correct strength-formula tion from [employer] options. If intended option is not shown, discontinue and re-order from Quick Search* Not-Taking/ PRN [place] 325 MG-5 MG TABLET 1 TAB(S) ORALLY EVERY 6 HOURS *Please review and pick correct strength-formula tion from [employer] options. If intended option is not shown, discontinue and re-order from Quick Search* Active Gabapentin 600 MG Tablet 1 tab(s) orally 3 times a day; Duration: 30 days Active Mucinex 600 MG Tablet Extended Release 12 Hour 1 tab(s) orally every 12 hours; Duration: 5 day(s) Active Mirtazapine 30 MG Tablet 1 tab(s) orally once a day (at bedtime); Duration: 30 day(s) Active Escitalopram Oxalate 20 MG Tablet 1 tab(s) orally once a day; Duration: 30 day(s) Active Symbicort 160-4.5 MCG/ACT Aerosol 2 puff(s) inhaled 2 times a day; Duration: 30 day(s) Active Loratadine 10 MG Tablet 1 tab(s) orally once a day; Duration: 30 days Active Metoprolol Succinate ER 25 MG Tablet Extended Release 24 Hour 1 tab(s) orally once a day; Duration: 30 days Active Incruse Ellipta 62.5 MCG (0.0625 MG)/INH POWDER DIRECTED INHALED EVERY 24 HOURS; Duration: 30 DAYS *Please review and pick correct strength-formula tion from [employer] options. If intended option is not shown, discontinue and re-order from Quick Search* Active Ventolin HFA 108 (90 Base) MCG/ACT Aerosol Solution 2 puff(s) inhaled 4 times a day; Duration: 30 day(s) Active Clopidogrel Bisulfate 75 MG Tablet 1 tab(s) orally once a day; Duration: 30 day(s) Active Atorvastatin Calcium 20 MG Tablet 1 tab(s) orally once a day; Duration: 30 day(s) Active Famotidine 20 MG Tablet 1 tab(s) orally once a day; Duration: 30 days Active Lansoprazole 30 MG Capsule Delayed Release 1 cap(s) orally BID; Duration: 30 days Active Singulair 10 MG Tablet 1 tab(s) orally once a day; Duration: 30 day(s) Active Fluticasone Propionate 50 MCG/ACT Suspension 1 spray(s) intranasally once a day; Duration: 30 day(s) Active lamoTRIgine 200 MG Tablet 1 tab(s) orally 2 times a day; Duration: 30 days Active SEROquel 400 MG Tablet 1 tab(s) orally qhs; Duration: 30 days Active Methocarbamol 500 MG Tablet 2 tab(s) orally 2 times a day prn pain; Duration: 10 days 02/25/2018 Active Social History Social History Social History Social Info Question Answer Notes Tobacco Use Current smoking status: Current Smoker Qu it for 10 years and started again 11/2017 due to lots of stress Additional Details Category Social Info Options Details Social History Occupation disability Travel outside [place] no Alcohol no Sexually active no Drug use no Exercise no Home smoke detector use: yes Caffeine yes 6-8 cups of coff ee Marital Status Children 4 Pets 1 dog [employer] sort of Problems Problem Type SNOMED Code ICD Code Onset Dates Problem Status W/U Status Risk Notes Problem Depressed bipolar I disorder (91799207) Bipolar disorder, current episode depressed, mild or moderate severity, unspecified (F31.30) Active confirmed Problem Seasonal allergic rhinitis (763286762) Other seasonal allergic rhinitis (J30.2) Active confirmed Problem Chronic obstructive pulmonary disease (93543323) Chronic obstructive pulmonary disease, unspecified (J44.9) Active confirmed Problem Gastro-esophageal reflux disease without esophagitis (810032084) Gastro-esophageal reflux disease without esophagitis (K21.9) Active confirmed Problem Sleep disorder (26577782) Sleep disorder, unspecified (G47.9) Active confirmed Problem Fibromyalgia (798884528) Fibromyalgia (M79.7) Active confirmed Problem Atherosclerotic heart disease of [place] coronary artery without angina pectoris (428519748738393) Atherosclerotic heart disease of [place] coronary artery without angina pectoris (I25.10) Active confirmed Problem Mild recurrent major depression (50853026) Major depressive disorder, recurrent, mild (F33.0) Active confirmed Problem Essential hypertension (70084054) Essential (primary) hypertension (I10) Active confirmed Encounters Encounter Location Date Provider Diagnosis [address] [address] 11/05/2024 Provider Migration Atherosclerotic heart disease of [place] coronary artery without angina pectoris I25.10 ; Fibromyalgia M79.7 and Acute bronchitis due to Mycoplasma pneumoniae J20.0 Assessments Encounter Date Diagnosis (ICD Code) Assessment Notes Treatment Notes Treatment Clinical Notes Section Notes 11/05/2024 Atherosclerotic heart disease of [place] coronary artery without angina pectoris (ICD-10 - I25.10) 11/05/2024 Fibromyalgia (ICD-10 - M79.7) 11/05/2024 Acute bronchitis due to Mycoplasma pneumoniae (ICD-10 - J20.0) Plan Of Treatment No Information Insurance Providers Payer Name Payer Address Payer Phone Subscriber Number Group Number Insured Name Patient Relationship to Insured Coverage Start Date Coverage End Date [employer] 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 [address] [place] [address] [id number] Christine Guaman Self - patient is the insured Medical (General) History Medical History History ICD Code Asthma cancer colon polyps heart disease kidney disease mental illness Surgical History Surgery Date(Month/Year) heart stent 01/2017 appendectomy 09/1983 D & C Tubal 1995 hysterectomy 10/2010 Left kidney removed 10/2011 sinus surgery tonsils Colonoscopy & endoscopy
--- NOTE | 2025-01-12 16:58 | XR_ITS ---
PROCEDURE INFORMATION: Exam: XR Chest Exam date and time: 01/12/2025 5:04 PM Age: 54 years old Clinical indication: Cough; Additional info: Chronic cough TECHNIQUE: Imaging protocol: Radiologic exam of the chest. Views: 2 views. COMPARISON: CT LUNG SCREENING 03/28/2024 3:13 PM FINDINGS: Lungs: Unremarkable. No consolidation. Pleural spaces: Unremarkable. No pleural effusion. No pneumothorax. Heart/Mediastinum: Unremarkable. No cardiomegaly. Bones/joints: Unremarkable. IMPRESSION: No acute findings.
--- NOTE | 2025-01-12 16:59 | ED_ITS ---
Discharge Plan Disposition Patient Disposition: Home, Self-Care Prescriptions Prescriptions: No Action albuterol sulfate 90 mcg/actuation HFA aerosol inhaler 2 puff INHALATION Q6H PRN (Reason: shortness of breath or wheezing) Qty: 8.5 12RF nicotine (polacrilex) 2 mg mini lozenge 2 mg buccal Q4H PRN (Reason: nicotine cravings) Qty: 81 0RF azelastine 137 mcg (0.1 %) spray,non-aerosol 2 spray intranasal BID Patient Comments: INSTILL TWO (2) SPRAYS IN EACH NOSTRIL TWICE DAILY DIRECTED FOR RUNNY NOSE AND CONGESTION budesonide-formoterol [Symbicort] 160-4.5 mcg/actuation HFA aerosol inhaler 2 puff inhalation BID 90 Days Qty: 10.2 2RF nitroglycerin 0.4 mg tablet, sublingual 0.4 mg sublingual Q5M PRN (Reason: chest pain) Qty: 25 0RF Rx Instructions: do not exceed 3 doses per episode acyclovir 800 mg tablet See Rx Instructions .ROUTE .COMPLEX Qty: 60 10RF Dose Instruction: TAKE 1 TABLET BY MOUTH TWICE DAILY Rx Instructions: TAKE 1 TABLET BY MOUTH TWICE DAILY aspirin 81 mg tablet,delayed release (DR/EC) 81 mg PO DAILY Qty: 90 3RF atorvastatin 40 mg tablet See Rx Instructions .ROUTE .COMPLEX Qty: 90 3RF Dose Instruction: TAKE 1 TABLET (40MG) BY MOUTH DAILY Rx Instructions: TAKE 1 TABLET (40MG) BY MOUTH DAILY citalopram 40 mg tablet See Rx Instructions .ROUTE .COMPLEX Qty: 90 3RF Dose Instruction: TAKE 1 TABLET (40MG) BY MOUTH DAILY Rx Instructions: TAKE 1 TABLET (40MG) BY MOUTH DAILY clopidogrel 75 mg tablet See Rx Instructions .ROUTE .COMPLEX Qty: 90 3RF Dose Instruction: TAKE 1 TABLET (75MG) BY MOUTH DAILY Rx Instructions: TAKE 1 TABLET (75MG) BY MOUTH DAILY ergocalciferol (vitamin D2) [Vitamin D2] 1,250 mcg (50,000 unit) capsule See Rx Instructions .ROUTE .COMPLEX Qty: 14 3RF Dose Instruction: TAKE 1 CAPSULE BY MOUTH ONCE WEEKLY Rx Instructions: TAKE 1 CAPSULE BY MOUTH ONCE WEEKLY famotidine 40 mg tablet See Rx Instructions .ROUTE .COMPLEX Qty: 90 3RF Dose Instruction: TAKE 1 TABLET (40MG) BY MOUTH DAILY Rx Instructions: TAKE 1 TABLET (40MG) BY MOUTH DAILY fluticasone propionate 50 mcg/actuation spray,suspension See Rx Instructions .ROUTE .COMPLEX Qty: 16 10RF Dose Instruction: INSTILL ONE (1) SPRAY IN EACH NOSTRIL DAILY Rx Instructions: INSTILL ONE (1) SPRAY IN EACH NOSTRIL DAILY losartan 25 mg tablet 25 mg PO DAILY Qty: 90 3RF montelukast 10 mg tablet See Rx Instructions .ROUTE .COMPLEX Qty: 90 3RF Dose Instruction: TAKE 1 TABLET (10MG) BY MOUTH DAILY Rx Instructions: TAKE 1 TABLET (10MG) BY MOUTH DAILY omeprazole 40 mg capsule,delayed release(DR/EC) 40 mg PO DAILY Qty: 90 3RF oxybutynin chloride 5 mg tablet See Rx Instructions .ROUTE .COMPLEX Qty: 180 3RF Dose Instruction: TAKE ONE (1) TABLET BY MOUTH TWICE DAILY FOR BLADDER Rx Instructions: TAKE ONE (1) TABLET BY MOUTH TWICE DAILY FOR BLADDER sennosides [senna] 8.6 mg tablet 8.6 mg PO DAILY Qty: 90 3RF quetiapine 300 mg tablet See Rx Instructions .ROUTE .COMPLEX Qty: 30 0RF Dose Instruction: TAKE 1 TABLET (300MG) BY MOUTH AT BEDTIME Rx Instructions: TAKE 1 TABLET (300MG) BY MOUTH AT BEDTIME trazodone 150 mg tablet See Rx Instructions .ROUTE .COMPLEX Qty: 30 0RF Dose Instruction: TAKE 1 TABLET (150MG) BY MOUTH EVERY NIGHT AT BEDTIME Rx Instructions: TAKE 1 TABLET (150MG) BY MOUTH EVERY NIGHT AT BEDTIME ranolazine 500 mg tablet extended release 12 hr 500 mg PO BID Qty: 60 5RF benzonatate 100 mg capsule 100 mg PO TIDP PRN (Reason: Cough) Qty: 30 0RF methylprednisolone 4 mg Tablets,Dose Pack 4 mg PO DIRECTED 6 Days Qty: 21 0RF Rx Instructions: Take 1 pack as directed for 6 days Referrals Follow up/Referrals: Provider,Referral, [Primary Care Provider, Medical] - See instructions Talha Nelson MD [Staff Physician, Cardiology] - See instructions Activity Restrictions/Add. Instructions Additional Instructions/Restrictions: At this time it was felt you are safe to be discharged home. If new or worsening symptoms please do not hesitate to return the emergency department. Please call and schedule appointment with Dr. Nelson as soon as you are able if you have persistent chest pain and continue to follow-up with your family doctor as discussed for long-term management of your chronic allergies and cough. Clinical Impressions Clinical Impression: Chest pain, Chronic cough, Post-nasal drip Print Language Print Language: Georgian Discharge ED Provider: Elias Walsh General Chief Complaint: Chest Pain Stated Complaint: productive cough,pain with inhaling Time Seen by Provider: 01/12/25 16:42 Mode of Arrival: Ambulatory Source of Information: Patient Description of Symptoms (Recalled from ER Triage Doc. by RN): Patient presents to ED for intermittent substernal chest pain for 3 days. Also reports productive cough with clear sputum. History of Present Illness HPI narrative: Patient is a 54-year-old female previous smoker presents emergency department for evaluation of chest pain. Onset was acute, 3 days ago, left sternal border where her ribs meet her sternum, worse with deep inspiration and palpation. She has had a productive cough for years which is not particularly worse than normal. 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 No other acute complaints at this time Please note that above description of symptoms, in this electronic medical record under categorization of recalled from ER triage doctor by RN are reflective of an initial nursing assessment, however, is not reflective of my full history and physical exam that was personally taken and clarified. Consequentially, this preceding description of symptoms, which may include the patient's categorized chief complaint in the EMR, do not reflect my personal clinical impression, and the ultimate description of history of present illness and patient stated complaints should be deferred to this section of the note. Unless stated otherwise or congruent with this section of the note, additional signs, symptoms, or incongruence should be interpreted as inaccurate with my clinical impression. Related Data Home Medications ?Medication ?Instructions ?Recorded ?Confirmed azelastine 137 mcg (0.1 %) nasal 2 spray intranasal BI D 10/14/24 10/14/24 spray Previous Rx's ?Medication ?Instructions ?Recorded albuterol sulfate 90 mcg/actuation 2 puff inhalation Q 6H PRN 09/22/22 aerosol inhaler shortness of breath or wheez ing #8.5 grams acyclovir 800 mg tablet See Rx Instructions .Route 0 12/17/23 .COMPLEX #60 tabs aspirin 81 mg tablet,delayed 81 mg PO DAILY heart heal th #90 12/17/23 release tabs atorvastatin 40 mg tablet See Rx Instructions .Route 0 12/17/23 .COMPLEX #90 tabs citalopram 40 mg tablet See Rx Instructions .Route 0 12/17/23 .COMPLEX #90 tabs clopidogrel 75 mg tablet See Rx Instructions .Route 0 12/17/23 .COMPLEX #90 tabs ergocalciferol (vitamin D2) 1,250 See Rx Instructions .Route 12/17/23 mcg (50,000 unit) capsule (Vitamin .COMPLEX #14 caps D2) famotidine 40 mg tablet See Rx Instructions .Route 0 12/17/23 .COMPLEX #90 tabs fluticasone propionate 50 See Rx Instructions .Route 0 12/17/23 mcg/actuation nasal .COMPLEX #16 grams spray,suspension losartan 25 mg tablet 25 mg PO DAILY High blood pr essure 12/17/23 #90 tabs montelukast 10 mg tablet See Rx Instructions .Route 0 12/17/23 .COMPLEX #90 tabs omeprazole 40 mg capsule,delayed 40 mg PO DAILY GERD # 90 caps 12/17/23 release oxybutynin chloride 5 mg tablet See Rx Instructions .R oute 12/17/23 .COMPLEX #180 tabs quetiapine 300 mg tablet See Rx Instructions .Route 0 12/17/23 .COMPLEX #30 tabs sennosides 8.6 mg tablet (senna) 8.6 mg PO DAILY #90 t abs 12/17/23 trazodone 150 mg tablet See Rx Instructions .Route 0 12/17/23 .COMPLEX #30 tabs nicotine (polacrilex) 2 mg buccal 2 mg buccal Q4H PRN nicotine 04/05/24 mini lozenge cravings #81 ea nitroglycerin 0.4 mg sublingual 0.4 mg sublingual Q5M PRN chest 04/06/24 tablet pain #25 tabs ranolazine 500 mg tablet,extended 500 mg PO BID #60 ta bs 05/02/24 release,12 hr benzonatate 100 mg capsule 100 mg PO TIDP PRN Cough #3 0 caps 06/07/24 methylprednisolone 4 mg tablets in 4 mg PO DIRECTED 6 days #21 tabs 06/07/24 a dose pack budesonide-formoterol HFA 160 2 puff inhalation BID 90 days 10/14/24 mcg-4.5 mcg/actuation aerosol #10.2 grams inhaler (Symbicort) Allergies Allergy/AdvReac Type Severity Reaction Status Date / Time albuterol Allergy Intermediate Verified 10/14/24 13:27 hydroxyzine (From Vistaril) Allergy Intermediate JITTERY Verified 10/14/24 13:27 [facility] Disclaimer: The information contained in this section may have been updated after the patient was seen, as this information can be updated by other users. Medical History Dyspnea Chest pain Chronic cough Nodule of left lung COPD mixed type Encounter for screening for malignant neoplasm of lung in current smoker with 30 pack year history or greater Smoking greater than 30 pack years Allergic rhinitis History of asthma Chronic bronchitis Pulmonary emphysema Dyspnea on exertion Chronic cough Anxiety Depression Osteoarthritis History of gastroesophageal reflux (GERD) Appendicitis Deviated septum Allergies History of primary transitional cell carcinoma of right kidney Cancer of kidney Dizziness Encounter for pre-operative cardiovascular clearance CAD (coronary artery disease) Allergic rhinitis Seasonal affective disorder Ear pain Fibromyalgia Gastroesophageal reflux disease Hyperlipidemia Hypertensive disorder Persistent cough for 3 weeks or longer Surgical History History of nasal septoplasty Hx of heart artery stent History of bilateral tubal ligation History of hysterectomy History of appendectomy Stented coronary artery Family History Other Family history of myocardial infarction Pulmonary emphysema Social History Smoking Status: Current every day smoker tobacco type: cigarettes packs per day: 1 smoking status stop date: 08/13/23 alcohol intake: current alcohol intake frequency: holidays/special occasions only substance use type: denies use current occupational status: employed Travel in the last 8 weeks?: None household members: spouse housing: house lives independently: No marital status: caffeine: No Have you lived/traveled outside US in past 30 days?: No Contact w/someone who lives/traveled outside US past 30 days?: No Exposure to someone with infectious disease in past 14 days?: No Do you have a fever (greater than 100.4 F or 38 C)?: No Have you tested positive for COVID-19?: No Exposed to someone with COVID-19 in past 14 days?: No Do you have a sore throat?: No Do you have a cough?: Yes Do you have any weakness?: No Do you have any diarrhea?: No Are you experiencing any unusual bleeding?: No Do you have any muscle aches/pain?: No Do you have any abdominal pain?: No Are you experiencing loss of taste or smell?: No Other Medical History Have you received the Flu Vaccine for this season: Yes Have you received the Pneumonia Vaccine: Yes ROS Obtained: Yes Systems reviewed as appropriate & no additional complaints except as documented Physical Exam General General appearance: alert and in no apparent distress Head Head exam: atraumatic and normocephalic Eye Eye exam: Present PERRL and EOMI ENT ENT exam: Present normal oropharynx and mucous membranes moist Neck Neck exam: Present normal inspection Chest Chest inspection: Present normal inspection and symmetric chest wall rise Respiratory Respiratory exam: Present normal lung sounds bilaterally; Absent respiratory distress, wheezes or stridor Cardiovascular Cardiovascular exam: Present regular rate and normal rhythm Abdominal Exam Abdominal exam: Present soft; Absent tenderness Extremities Exam Extremities exam: Present normal inspection Neurological Exam Neurological exam: Present alert Psychiatric Psychiatric exam: Present normal affect Skin Skin exam: Present warm and dry HEART Score HEART Score HEART Score assessment performed?: Yes History (anamnesis): Slightly suspicious ECG: Normal Age: 45-65 years Risk factors: 1-2 risk factors Troponin: </= normal limit HEART Score: 2 Critical Care Critical Care Time Critical Care Time: No Medical Decision Making Jonathan Inquiry Pt receiving controlled substance: No Vital Signs Vital Signs: 01/12/25 16:46 01/12/25 16:46 01/12/25 16:52 Temperature 98.4 F 98.4 F Temperature Source Oral Pulse Rate 60 60 Pulse Rate [Right] 60 Respiratory Rate 16 16 Blood Pressure 150/94 H Blood Pressure [Right Arm] 150/94 H Blood Pressure Mean [Right Arm] 112 02 Sat by Pulse Oximetry 98 98 Oxygen Delivery Method Room Air 01/12/25 17:01 01/12/25 17:31 01/12/25 18:00 Temperature Temperature Source Pulse Rate 51 L 55 L 50 L Pulse Rate [Right] Respiratory Rate Blood Pressure 135/110 H 177/95 H 157/87 H Blood Pressure [Right Arm] Blood Pressure Mean [Right Arm] 02 Sat by Pulse Oximetry 99 95 97 Oxygen Delivery Method 01/12/25 18:30 Temperature Temperature Source Pulse Rate 51 L Pulse Rate [Right] Respiratory Rate Blood Pressure 158/92 H Blood Pressure [Right Arm] Blood Pressure Mean [Right Arm] 02 Sat by Pulse Oximetry 96 Oxygen Delivery Method Lab Data Labs: Lab Results 01/12/25 17:46: WBC 8.4, RBC 4.49, Hgb 12.9, Hct 38.5, MCV 85.7, MCH 28.7, MCHC 33.5, RDW 12.9, Plt Count 365, MPV 9.1, Neut % (Auto) 67.6, Lymph % (Auto) 24.1, [place]ison % (Auto) 6.3, Eos % (Auto) 1.1, Baso % (Auto) 0.7, Neut # (Auto) 5.7, Lymph # (Auto) 2.0, [place] # (Auto) 0.5, Eos # (Auto) 0.1, Baso # (Auto) 0.1, D-Dimer 0.67 H, Sodium 135 L, Potassium 4.3, Chloride 104, Carbon Dioxide 27, Anion Gap 8.3, BUN 14, Creatinine 1.00, Estimated Creat Clear 85, Estimated GFR 58 L, Est GFR ( Amer) 70, Glucose 82, Calcium 9.3, Total Bilirubin 0.8, AST 29, ALT 18, Alkaline Phosphatase 67, Troponin I < 0.01, Total Protein 7.2, Albumin 4.5, Globulin 2.7, Albumin/Globulin Ratio 1.7 01/12/25 17:46 01/12/25 17:46 Response Orders (Tests/Meds): ED MEDICATIONS Discontinued Medications Generic Name Dose Route Start Last Admin Trade Name Ángelq PRN Reason Stop Dose Admin Acetaminophen 1,000 mg 01/12/25 16:57 01/12/25 17:55 Acetaminophen 500mg Tab PO 01/12/25 16:58 1,000 mg ONCE ONE Administration Aspirin 324 mg 01/12/25 16:57 01/12/25 17:54 Aspirin 81mg Chewable Tablet PO 01/12/25 16:58 324 mg ONCE ONE Administration Ketorolac Tromethamine 30 mg 01/12/25 16:57 01/12/25 17:55 Ketorolac 30mg/Ml Vial IV 01/12/25 16:58 30 mg ONCE ONE Administration ORDERS Category Date Time Status CXR 2 view (NOT portable) [XR chest 2V] Stat Exams 01/12/25 16:58 Completed CBC w/Auto Diff [Complete Blood Count Auto Diff] Stat Lab 01/12/25 17:46 Completed CMP [Comprehensive Metabolic Panel] Stat Lab 01/12/25 17:46 Completed D-Dimer Stat Lab 01/12/25 17:46 Completed Trop I [Troponin I] Stat Lab 01/12/25 17:46 Completed Troponin I Q3H Lab 01/12/25 20:00 Ordered Troponin I Q3H Lab 01/12/25 23:00 Ordered EKG Request [ECG Request] Stat Y 01/12/25 17:06 Ordered ECG Data Tracing #1: ECG Narrative: Independently interpreted by me rate is 54, rhythm is regular, axis is normal, no ST elevation in anatomical contiguous leads, QTc 464. MDM Narrative Medical Decision Narrative: In summary patient is a 54-year-old female past medical history of scrota above who presents emergency department for evaluation of pleuritic chest pain. Patient is hemodynamically stable nontoxic-appearing arrival, afebrile. Differential diagnosis includes cardiac chest pain, noncardiac chest pain, costochondritis, pneumonia, pulmonary embolism, among others. Workup we conducted with hematologic labs two-view chest x-ray troponins D-dimer initial inventions include aspirin, Tylenol, Toradol. I suspect patient has chronic allergies with is likely not infectious and likely from seasonal allergies and irritation of her costochondral margin. Initial workup reviewed by me no significant leukocytosis or transfusable anemia, pulmonary embolism excluded per years criteria, no LASHELL or critical electrolyte [place]. Initial troponin undetectably low. Given the persistent pain for last 3 days single troponin is sufficient enough to rule out ACS at this time. Chest x-ray informally interpreted by me no dense lobar opacities or large pneumothorax. Formal read shows no acute pathology. Given this patient is appropriate for outpatient management at this time given that her chronic cough is likely secondary to chronic allergies which will need managed on a long-term outpatient basis standpoint for which she has a follow-up appointment to establish care.
--- NOTE | 2025-01-12 17:11 | ECG_ITS ---
APPROVED REPORT Exam: Resting ECG HR:54 bpm ECG Measurements Heart Rate 54 AXES CO 156 P 71 QRSd 92 QRS 76 QT 479 T 61 QTc 464 Conclusion SINUS BRADYCARDIA PROLONGED QT INTERVAL ABNORMAL ECG Electronically signed by : JEANETTE RIDLEY, 01/12/2025 21:53:50
[2025-01-12 17:53] LABS: Hematocrit 38.5 % (37.0-47.0); Hemoglobin 12.9 g/dL (12.2-16.2); Immature Granulocytes % 0.2 %; Mean Corpuscular HGB Conc 33.5 g/dL (31.8-35.4); Mean Corpuscular Hemoglobin 28.7 pg (27.0-31.2); Mean Corpuscular Volume 85.7 fl (81-99); Nucleated Red Blood Cells % 0 %; Platelet Count 365 K/mm3 (142-424); Red Blood Count 4.49 M/mm3 (4.20-5.40); Red Cell Distribution Width-SD 40.3 fL; White Blood Count 8.4 K/mm3 (4.8-10.8)
[2025-01-12] MEDS: ASPIRIN 81MG CHEWABLE TABLET 324 MG PO (17:54)
[2025-01-12] MEDS: KETOROLAC 30MG/ML VIAL 30 MG IV (17:55)
[2025-01-12] MEDS: ACETAMINOPHEN 500MG TAB 1000 MG PO (17:55)
[2025-01-12 18:07] LABS: Alanine Aminotransferase 18 U/L (12-78); Albumin Level 4.5 g/dl (3.5-5.0); Albumin/Globulin Ratio 1.7 (1.1-1.8); Alkaline Phosphatase 67 U/L (38-126); Anion Gap 8.3 mEq/L (5-15); Aspartate Amino Transferase 29 U/L (14-36); Bilirubin,Total 0.8 mg/dl (0.2-1.3); Blood Urea Nitrogen 14 mg/dl (7-17); Calcium 9.3 mg/dl (8.4-10.2); Carbon Dioxide 27 mmol/L (22.0-30.0); Chloride 104 mmol/L (98-107); Creatinine Clearance Estimated 85 mL/min (50-200); Creatinine,Serum 1.00 mg/dl (0.52-1.04); Estimated Glomerular Filt Rate 58 ml/min (>60); GFR (African American) 70 ML/MIN (>60); Globulin 2.7 g/dL (1.3-3.2); Glucose 82 mg/dl (74-100); Potassium 4.3 mmoL/L (3.5-5.1); Sodium 135 mmol/L (136-145); Total Protein,Serum 7.2 g/dl (6.3-8.2)
[2025-01-12 18:14] LABS: D-Dimer 0.67 ug/mL (0.0-0.5)
[2025-01-12 18:33] LABS: Troponin I < 0.01 ng/ml (0.00-0.034)
== END 2025-01-12 19:16 | disposition home or self-care (01) ==
PROVIDERS: Emergency Provider Emergency Medicine
DX: R07.2 Precordial pain (principal); R09.82 Postnasal drip; R05.3 Chronic cough; F17.210 Nicotine dependence, cigarettes, uncomplicated
CPT/HCPCS: 71046; 80053; 84484; 85025; 85378; 93005; 96374; 99284; J1885

== ENCOUNTER 2025-02-06 07:59 | Day surgery (SDC) | payer MEDICAID, SELFPAY ==
[2025-02-06] VITALS (14 sets, daily range): BP systolic 124–197; BP diastolic 79–100; PULSE 53–66; RESP 17–20; O2SAT 91–97; BMI 33.6
--- NOTE | 2025-02-06 06:58 | IR_ITS ---
APPROVED REPORT Patient Location: Outpatient PROCEDURES Left heart catheterization Left ventriculogram Selective coronary angiogram INDICATION Known coronary artery disease, Angina pectoris, Abnormal Myoview Informed consent was obtained prior to the procedure. COMPLICATIONS NONE Estimated Blood Loss: LESS THAN 10 ML TECHNIQUE One percent lidocaine used to anesthetize the right anterior aspect of the wrist. The right radial artery was accessed via the Seldinger technique. A 6 Russian sheath was placed in the right radial artery. 2.5 mg of Verapamil, 800 mcg of nitroglycerin, 1mg Lidocaine and 5000 U Heparin were given through the arterial sheath. The JL3 catheter was also used to perform left heart catheterization, left ventriculogram and selective coronary angiogram. At the end of the procedure the sheath was removed good hemostasis was achieved using Traclet band, patient was transferred to the postop holding area in stable condition. ANGIOGRAPHIC RESULTS The left main artery Normal The left anterior descending artery Has a stent in the proximal segment which is widely patent free of in-stent restenosis with excellent proximal transitioning. Distally there is a 20 to 30% stenosis at the transition point. The remaining LAD has mild 10% luminal regularities The circumflex artery Nondominant with 10% luminal regularities The right coronary artery Large and dominant with proximal and mid vessel 30% stenoses with an additional mid vessel concentric 40 to 50% stenosis The GERMAN ventriculogram reveals Normal 65% The left ventricular end-diastolic pressure 15 mmHg IMPRESSION Patent proximal LAD stent Moderate disease in the mid to distal dominant right coronary artery Normal ejection fraction Borderline LVEDP PLAN 1. Patient is only on 1 antianginal medication. At this point I recommend maximizing antianginal medications. If patient continues to have recalcitrant angina pectoris she can be brought back to the [facility] and undergo FFR or additional interrogation of the right coronary artery 2. Risk factor modification Electronically signed by : Talha Nelson MD 02/06/2025 10:07:38
[2025-02-06 08:28] LABS: Hematocrit 41.9 % (37.0-47.0); Hemoglobin 13.7 g/dL (12.2-16.2); Immature Granulocytes % 0.1 %; Mean Corpuscular HGB Conc 32.7 g/dL (31.8-35.4); Mean Corpuscular Hemoglobin 28.1 pg (27.0-31.2); Mean Corpuscular Volume 86.0 fl (81-99); Nucleated Red Blood Cells % 0 %; Platelet Count 402 K/mm3 (142-424); Red Blood Count 4.87 M/mm3 (4.20-5.40); Red Cell Distribution Width-SD 40.3 fL; White Blood Count 7.1 K/mm3 (4.8-10.8)
[2025-02-06 08:36] LABS: Anion Gap 12.0 mEq/L (5-15); Blood Urea Nitrogen 16 mg/dl (7-17); Calcium 9.3 mg/dl (8.4-10.2); Carbon Dioxide 25 mmol/L (22.0-30.0); Chloride 105 mmol/L (98-107); Creatinine Clearance Estimated 82 mL/min (50-200); Creatinine,Serum 1.10 mg/dl (0.52-1.04); Estimated Glomerular Filt Rate 52 ml/min (>60); GFR (African American) 63 ML/MIN (>60); Glucose 101 mg/dl (74-100); Potassium 4.0 mmoL/L (3.5-5.1); Sodium 138 mmol/L (136-145)
[2025-02-06] MEDS: VERAPAMIL 2.5MG/ML 2ML VIAL 2.5 MG IV (09:39)
[2025-02-06] MEDS: HEPARIN 1,000 UNITS/500ML NS (CATH LAB) 3000 UNIT IV (09:39)
[2025-02-06] MEDS: 0.9 % SODIUM CHLORIDE 500 ML 25 ML IV (09:40)
[2025-02-06] MEDS: HEPARIN 1,000 UNITS/ML 10ML VIAL (CATH LAB) 5000 UNIT IV (09:40)
[2025-02-06] MEDS: NITROGLYCERIN 800MCG/8ML SYR (CATH LAB) 800 MCG IA (09:40)
[2025-02-06] MEDS: LIDOCAINE 1% 10ML MDV 10 ML IJ (09:40)
[2025-02-06] MEDS: MIDAZOLAM HCL 1MG/ML 5ML VIAL 1 MG IV (09:41)
[2025-02-06] MEDS: FENTANYL 100MCG/2ML VIAL 50 MCG IV (09:41)
[2025-02-06] MEDS: IOPAMIDOL-370 (76%);100ML BOTTLE 50 ML IV (12:48)
== END 2025-02-06 13:28 | disposition home or self-care (01) ==
LOC: CATHLAB 08:00
PROVIDERS: Visit Provider Internal Medicine
PROC: 4A023N7 Measurement of Cardiac Sampling and Pressure, Left Heart, Percutaneous Approach (ICD-10-PCS; CPT 93452; principal; 2025-02-06 07:15)
DX: I25.118 Atherosclerotic heart disease of native coronary artery with other forms of angina pectoris (principal); R93.1 Abnormal findings on diagnostic imaging of heart and coronary circulation; J44.9 Chronic obstructive pulmonary disease, unspecified; I10 Essential (primary) hypertension; K21.9 Gastro-esophageal reflux disease without esophagitis; E78.5 Hyperlipidemia, unspecified; F17.210 Nicotine dependence, cigarettes, uncomplicated; Z85.528 Personal history of other malignant neoplasm of kidney; Z95.5 Presence of coronary angioplasty implant and graft; Z79.82 Long term (current) use of aspirin; Z79.51 Long term (current) use of inhaled steroids; Z79.52 Long term (current) use of systemic steroids; Z79.02 Long term (current) use of antithrombotics/antiplatelets; Z79.899 Other long term (current) drug therapy; Z88.8 Allergy status to other drugs, medicaments and biological substances; Z82.49 Family history of ischemic heart disease and other diseases of the circulatory system
CPT/HCPCS: 80048; 85025; 93458; 99152; C1725; C1769; J1200; J1644; J3010; J7040; Q9967